=== PATIENT | female | born 1980 | race Caucasian/White ===

== ENCOUNTER 2020-01-05 11:38 | Outpatient (CLI) | payer OTHER, SELFPAY ==
--- NOTE | ~2020-01-05 | XR_ITS ---
EXAMINATION: XR hysterosalpingogram DATE: 01/05/2020 12:31 INDICATION: Infertility. TECHNIQUE: Fluoroscopy was performed by the radiologist during contrast infusion into the endometrial cavity of the uterus by the primary physician. Fluoroscopy exposure time was 0.2 minutes. The total number of images was 8. FINDINGS: The intrauterine cavity is normal in morphology. The fallopian tubes are normal in morpholo gy. There is normal free intraperitoneal spillage of contrast on either side. IMPRESSION: 1. Normal hysterosalpingogram. Reviewed, dictated and finalized at location A. IAGE SETTER
== END 2020-01-05 11:39 | disposition home or self-care (01) ==
LOC: ANHIMG 11:44
PROVIDERS: PCP Obstetrics & Gynecology; Visit Provider Obstetrics & Gynecology
DX: N97.9 Female infertility, unspecified (principal)
CPT/HCPCS: 58340; 74740; Q9966

== ENCOUNTER 2022-01-10 16:11 | Outpatient (CLI) | payer OTHER, SELFPAY ==
--- NOTE | ~2022-01-10 | MM_ITS ---
EXAMINATION: MM screening yareli BI w lily HISTORY: Screening TECHNIQUE: Craniocaudal and mediolateral oblique 3-D tomosynthesis images were obtained and synthetic 2-D images were generated. CAD analysis was submitted and interpreted. COMPARISON: No prior mammogram is available for comparison at this institution. BREAST PARENCHYMAL COMPOSITION: There are scattered areas of fibroglandular density. FINDINGS: There are asymmetries in the upper outer quadrant of the right breast. There are no suspici ous masses, calcifications or architectural distortion in the left breast to suggest malignancy. IMPRESSION: 1. Right breast asymmetries, upper outer quadrant. 2. Additional mammographic views and possible breast ultrasound are recommended. BI-RADS Category 0: Incomplete: Needs additional imaging evaluation. Reviewed, dictated and finalized at location A. MAKER IMPRESSION: 1. Right breast asymmetries, upper outer quadrant. 2. Additional mammographic views and possible breast ultrasound are recommended . BI-RADS Category 0: Incomplete: Needs additional imaging evaluation.
== END 2022-01-10 16:12 | disposition home or self-care (01) ==
LOC: ANHIMG 16:14
PROVIDERS: PCP Obstetrics & Gynecology; Visit Provider Obstetrics & Gynecology
DX: Z12.31 Encounter for screening mammogram for malignant neoplasm of breast (principal); R92.8 Other abnormal and inconclusive findings on diagnostic imaging of breast
CPT/HCPCS: 77063; 77067

== ENCOUNTER 2022-01-31 11:47 | Outpatient (CLI) | payer OTHER, SELFPAY ==
--- NOTE | ~2022-01-31 | MMUS_ITS ---
EXAMINATION: MM diagnostic yareli RT w lily, US breast RT limited HISTORY: Follow-up right breast asymmetry TECHNIQUE: Additional 3-D tomosynthesis images of the right breast were performed and synthetic 2-D i mages were generated. CAD analysis was submitted and interpreted. High resolution Limited right breas t ultrasound was performed. COMPARISON: 01/10/2022 BREAST PARENCHYMAL COMPOSITION: The breasts are heterogenously dense, which may obscure small masses. FINDINGS: MAMMOGRAPHIC FINDINGS: There are no suspicious masses, calcifications or architectural distortion in the right breast to sug gest malignancy. The area of asymmetry is less dense with spot compression views. ULTRASOUND: Limited right breast ultrasound: At 9:00, 11 cm from the nipple there is a 5 mm intramammary lymph no de. No suspicious masses to suggest malignancy. IMPRESSION: 1. No evidence for malignancy in the right breast. 2. Routine yearly screening mammogram and regular clinical breast examination are recommended. BI-RADS Category 2: Benign finding(s). Reviewed, dictated and finalized at location A. AL SORTING OFFICER IMPRESSION: 1. No evidence for malignancy in the right breast. 2. Routine yearly screening mammogram and regular clinical breast examination a re recommended. BI-RADS Category 2: Benign finding(s).
== END 2022-01-31 11:48 | disposition home or self-care (01) ==
PROVIDERS: PCP Obstetrics & Gynecology; Visit Provider Obstetrics & Gynecology
DX: R92.8 Other abnormal and inconclusive findings on diagnostic imaging of breast (principal)
CPT/HCPCS: 76642; 77061; 77065; G0279

== ENCOUNTER 2024-03-20 11:06 | Outpatient (CLI) | payer OTHER, SELFPAY ==
[2024-03-20 11:52] LABS: Hemoglobin 14.1 g/dL (12.0-15.0)
== END 2024-03-20 11:07 | disposition home or self-care (01) ==
PROVIDERS: PCP Family Medicine; Visit Provider Obstetrics & Gynecology
DX: R10.2 Pelvic and perineal pain (principal); Z01.818 Encounter for other preprocedural examination
CPT/HCPCS: 36415; 85014; 85018

== ENCOUNTER 2024-03-27 02:49 | Day surgery (SDC) | payer OTHER, SELFPAY ==
--- NOTE | 2024-03-18 10:26 | PC.NURSE ---
Report to the Outpatient Waiting Room, entrance under the green pavilion located off [facility], at time 6:00 am on date [id number] . Planned Procedure Time: __730_am . Time changes happen often and if your time is changed the preop area will call you the afternoon before. - You and your visitor will be asked to self-screen and do not enter if you have any COVID symptoms. - A mask is optional within the hospital at this time. Patients may have clear liquids (water, carbonated beverages, clear teas, apple juice) until 3 hours prior to surgery with a maximum of 20 ounces. (last fluid at 4:30 am) - No food from midnight until time of surgery - Take the following medications with a SIP of water the morning of surgery: Nifedipine only___ ___ DO NOT STOP ANY OF YOUR OTHER PRESCRIPTION MEDICATIONS PRIOR TO SURGERY ?EXCEPT THE FOLLOWING Medications to discontinue per physician Vitamins/Supplements x3 days prior, last dose taken on 03-14-2024 May take lisinopril THE MORNING BEFORE- DO NOT TAKE THE MORNING OF._ Please no make-up, nail occitan, hairspray, perfume, deodorant, or body powder the day of surgery. No jewelry (including any body piercings) or valuables the day of surgery, leave them at home. Please take a shower or bath the night before, or the morning of, surgery with an antibacterial soap. Wear comfortable, loose fitting clothing. - Jewelry must be removed prior to entering the operating room. Rings and piercings that are not removed may be cut off. - The hospital will not accept responsibility for valuables. - Please leave all valuables, including medications, at home the day of surgery. If you are going home after surgery, a licensed truck driver teamster must drive you home. - NO public transportation without another adult if you receive anesthesia. - We recommend that an adult stay with you for 24 hours following discharge. - We also recommend that you do not drive, make important decision, drink alcoholic beverages, or take any drugs that were not prescribed by your health care provider for at least 24 hours after your discharge time. Follow any additional instructions given to you from your surgeon. If you or anyone in your household have experienced Covid symptoms in the past week, please notify your surgeon or the nurse liaison at the phone number below for possible testing. Telephone instructions given to Amber (patient)____and asked if any additional questions and then verbalized understanding. Patient advised to call surgeon office or pre surgery nurse liaison [phone] if any additional questions.
[2024-03-18 10:56] VITALS: BMI 37.0
--- NOTE | 2024-03-24 07:15 | P.HP_ITS ---
H&P: HPI History of Present Illness Date/Time: 03/24/24 07:15 Chief Complaint: Irregular bleeding pelvic pain Narrative: 43-year-old 1 para 1 who is admitted for hysteroscopy and dilatation curettage secondary to bleeding. Ultrasound shows what looks to be a submucosal fibroid. Risks and benefits of this procedure reviewed including but not exclusive of , aspiration pneumonia, bleeding, transfusion, perforation injury to bowel, bladder, ureters, or other internal organs with need for open laparotomy. She received the ACOG handout entitled hysteroscopy as well as dilatation curettage respectively. She had all questions answered. She asked to proceed [facility] Family History Family History Mother Cancer Hypertension Father Alcoholism Grandparent Cancer Hypertension Social History Social History Smoking status: Never smoker Second hand tobacco smoke exposure: Yes (occassional) Alcohol intake: current Drinks per week: 0 Alcohol use details: x1 month occassionally Substance use: never Substance use type: does not use Living arrangements: with family Meds Home Medications and Allergies Home Medications Medication Instructions Recorded Confirmed Type cholecalciferol (vitamin D3) 25 25 mcg PO BID 05/24/23 03/18/24 History mcg (1,000 unit) tablet cetirizine 10 mg tablet (Zyrtec) 10 mg PO HS PRN Allergic Symptoms 09/19/23 03/18/24 History prednisone 20 mg tablet 40 mg PO DAILY #10 tabs 09/19/23 03/18/24 Rx nifedipine 90 mg tablet,extended 90 mg PO DAILY #90 tabs 12/24/23 03/18/24 Rx release lisinopril 10 mg tablet 10 mg PO DAILY #90 tabs 01/28/24 03/18/24 Rx Adult One Daily Multivitamin 1 tablet BYMOUTH DAILY 03/18/24 03/18/24 History vitamins A,C,Q-pzgg-beebol 4,296 1 cap PO QAM AND QPM 03/18/24 03/18/24 History mcg-226 mg-90 mg capsule (PreserVision AREDS) Allergies Allergy/AdvReac Type Severity Reaction Status Date / Time pregabalin Allergy Mild Hives Verified 03/18/24 09:53 adhesive tape Allergy Unknown Verified 03/18/24 09:53 Exam Const: General: cooperative, healthy appearing and comfortable Nutritional Appearance: overweight Orientation/consciousness: oriented to person, oriented to place and oriented to time HENMT: Head: normal to inspection Resp: Effort & Inspection: normal respiratory effort Cardio: Rate: regular rate Rhythm: regular rhythm Heart sounds: S1 normal heart sound present and S2 normal heart sound present GI: Inspection: normal to inspection : External Female Exam: normal external appearance Speculum Exam - Vagina: normal appearance of the vagina Speculum Exam - Cervix: normal appearance of the cervix Bimanual exam- vagina & uterus: enlarged Bimanual Exam- Adnexa, other: normal adnexae Assessment and Plan Assessment and plan (1) Pelvic pain: Code(s): R10.2 - Pelvic and perineal pain Status: Acute (2) Excessive bleeding: Code(s): R58 - Hemorrhage, not elsewhere classified Status: Acute Plan Proceed with hysteroscopy/dilatation curettage
--- NOTE | 2024-03-26 13:31 | P.PNAN_ITS ---
Anes - Initial Pre Proc Eval Procedure: Operation Date: 03/27/24 10:30 Proposed Procedures p Hysteroscopy Dilation and Curettage - Ravi Hyatt MD Date/Time: 03/26/24 13:31 Surgeon: Ravi Hyatt MD Pre Op Diagnosis: Pain Patient Data Age: 43 Gender: F Height: 1.68 m Weight: 104.3 kg Allergies Allergy/AdvReac Type Severity Reaction Status Date / Time pregabalin Allergy Mild Hives Verified 03/18/24 09:53 adhesive tape Allergy Unknown Verified 03/18/24 09:53 Home Medications Medication Instructions Recorded Confirmed Type cholecalciferol (vitamin D3) 25 25 mcg PO BID 05/24/23 03/18/24 History mcg (1,000 unit) tablet cetirizine 10 mg tablet (Zyrtec) 10 mg PO HS PRN Allergic Symptoms 09/19/23 03/18/24 History prednisone 20 mg tablet 40 mg PO DAILY #10 tabs 09/19/23 03/18/24 Rx nifedipine 90 mg tablet,extended 90 mg PO DAILY #90 tabs 12/24/23 03/18/24 Rx release lisinopril 10 mg tablet 10 mg PO DAILY #90 tabs 01/28/24 03/18/24 Rx Adult One Daily Multivitamin 1 tablet BYMOUTH DAILY 03/18/24 03/18/24 History vitamins A,C,P-ctmp-oewjij 4,296 1 cap PO QAM AND QPM 03/18/24 03/18/24 History mcg-226 mg-90 mg capsule (PreserVision AREDS) hydrocodone 5 mg-acetaminophen 325 1 tablet PO Q4H PRN pain #20 tabs 03/27/24 Rx mg tablet Patient hx anesthesia problems: none Family hx anesthesia problems: none Results Review: All pre-operative results and documents have been reviewed as part of the pre- operative evaluation. [facility] Past Medical History Medical History (Updated 03/26/24 @ 13:31 by Jayesh Nj DO) Fibroid PONV (postoperative nausea and vomiting) Family History Family History Mother Cancer Hypertension Father Alcoholism Grandparent Cancer Hypertension Social History Social History Smoking status: Never smoker Second hand tobacco smoke exposure: Yes (occassional) Alcohol intake: current Drinks per week: 0 Alcohol use details: x1 month occassionally Substance use: never Substance use type: does not use Living arrangements: with family Emely - Jatinder Final PreProcedure Day of Procedure 03/26/24 13:31 Patient weight: obese Heart: regular rate and rhythm Lungs: clear to auscultation Airway: Mallampati scale class II Neurological: alert and oriented Last oral intake: >/= 8 hours ASA classification: II Emergent: no Anesthetic plan: proceed Anesthesia type and monitoring: general GIVS and standard monitoring Results Review: All pre-operative results and documents have been reviewed as part of the pre- operative evaluation. Informed Consent: The patient's anesthetic plan and its attendant risks and benefits were discussed with the patient/family/POA. Questions were solicited and answers provided to the satisfaction of the patient/family/POA.
[2024-03-27] VITALS (8 sets, daily range): BP systolic 79–141; BP diastolic 39–88; PULSE 45–97; RESP 16; TEMP 37.2; O2SAT 97–99
--- NOTE | 2024-03-27 06:36 | WPDHPUPDATE1 ---
History and Physical Update Update Date/Time: 03/27/24 06:36 History and Physical has been reviewed, including an updated exam of the patient. There are NO changes in the patient's condition. Risks, benefits, and alternatives have been discussed and questions answered. Patient agrees to proceed with procedure.
[2024-03-27] MEDS: LACTATED RINGERS 1,000 ML 30 ML IV CONT ×2 (09:00→11:50)
[2024-03-27] MEDS: ACETAMINOPHEN 500 MG TABLET 1000 MG PO (09:00)
[2024-03-27] MEDS: fentaNYL CITRATE INJ (*CRX) 100 MCG/2 ML VIAL 50 MCG IV PUSH (10:00)
[2024-03-27] MEDS: LIDOCAINE HCL 1% LOCAL INJ 10 ML VIAL INFILTRATE (10:38)
--- NOTE | 2024-03-27 11:03 | W.PM.PROC2 ---
Procedure Note - Detailed Date of Procedure 03/27/24 Pre-op Diagnosis Excessive bleeding Post-op Diagnosis Other ( excessive bleeding submucosal fibroid) Procedure Performed hysteroscopy/ dilatation curettage/ myomectomy Surgeon Ravi Hyatt MD Anesthesia MAC and Local Indications this is 43-year-old female with excessive heavy bleeding and what appeared to be submucosal fibroid ultrasound imaging Findings submucosal fibroid was seen. Thick irregular endometrial tissue was also seen Description of Procedure patient was prepped draped in the normal sterile fashion placed in dorsal lithotomy position. Under excellent IV sedation weighted speculum placed posterior fornix vagina. Anterior lip of cervix grasped with tenaculum. 2.5cc 1% xylocaine anesthesia placed at 2, 4, 8, 10:00 a.m. of the cervix. Uterus sounded to 8cm. Serial dilatation with fragmented dilators performed followed by passage of the of the to hysteroscope. Submucosal fibroid was noted and the reticulating device was inserted this was then none down to the surface of the endometrial lining. The endometrium was then scraped over the entire 360? in the instruments withdrawn. Blood loss estimated 5cc. All sponge, needle, instrument counts were correct. There were no immediate complications Estimated Blood Loss 5 Drains No Packing No Pathology Yes Complications No immediate complications Condition Stable Disposition PACU
--- NOTE | 2024-03-27 12:13 | SUR.PHASEII ---
1145: patient had nose bleed. bp and hr decreased. patient laid back into recliner, ivf's opened. Sundar BABIN near bedside. no new orders. patient begins to improve.
== END 2024-03-27 13:10 | disposition home or self-care (01) ==
PROVIDERS: PCP Family Medicine; Visit Provider Obstetrics & Gynecology
PROC: 0U5B8ZZ Destruction of Endometrium, Via Natural or Artificial Opening Endoscopic (ICD-10-PCS; CPT 58563; principal; 2024-03-27 10:30)
DX: D25.0 Submucous leiomyoma of uterus (principal); E66.9 Obesity, unspecified; Z68.36 Body mass index [BMI] 36.0-36.9, adult
CPT/HCPCS: 58561; 36415; 85014; 85018; 88305; A9270; J2250; J2405; J2704; J3010; J7120

== ENCOUNTER 2024-05-20 13:58 | Outpatient (CLI) | payer OTHER, SELFPAY ==
--- NOTE | ~2024-05-20 | XR_ITS ---
EXAMINATION: XR knee RT 3V DATE: 05/20/2024 14:32 INDICATION: Right knee pain. TECHNIQUE: 3 views of right knee including standing views were obtained. COMPARISON: None. FINDINGS: Bone alignment is normal. No fracture. Joint spaces are normal. No knee joint effusion. IMPRESSION: 1. Normal right knee. Reviewed, dictated and finalized at location A. IMPRESSION: 1. Normal right knee.
== END 2024-05-20 13:59 | disposition home or self-care (01) ==
LOC: ANHIMG 14:00
PROVIDERS: PCP Family Medicine; Visit Provider Family Medicine
DX: M25.561 Pain in right knee (principal)
CPT/HCPCS: 73562

== ENCOUNTER 2024-06-16 10:13 | Outpatient (CLI) | payer OTHER, SELFPAY ==
--- NOTE | ~2024-06-16 | MR_ITS ---
EXAMINATION: MR knee RT wo con DATE: 06/16/2024 11:14 INDICATION: Pain in right knee, unspecified TECHNIQUE: Magnetic resonance imaging (MRI) of the right 05/20/2024 knee was performed without intrave nous contrast. Sequences included axial PD-weighted FS FSE, coronal PD-weighted FSE and PD-weighted F S FSE, sagittal PD-weighted FSE, and sagittal T2-weighted FS FSE. COMPARISON: None. FINDINGS: Medial compartment: Mild diffuse cartilage thinning. Intact meniscus. Lateral compartment: Mild diffuse cartilage thinning. Intact meniscus. Patellofemoral compartment: Cartilage and retinacula intact. Ligaments and tendons: The ACL, PCL, MCL, and LCL are intact. Remaining flexor and extensor tendons are intact. Fluid: No significant fluid collection. Osseous/other: No suspicious focal or diffuse marrow signal. IMPRESSION: Mild bicompartmental knee osteoarthritis. Reviewed, dictated and finalized at location K.
== END 2024-06-16 10:14 ==
PROVIDERS: PCP Family Medicine; Visit Provider Family Medicine
DX: M17.0 Bilateral primary osteoarthritis of knee (principal)
CPT/HCPCS: 73721

== ENCOUNTER 2024-06-29 09:44 | Outpatient (CLI) | payer OTHER, SELFPAY ==
--- NOTE | ~2024-06-29 | MM_ITS ---
EXAMINATION: MM screening yareli BI w lily HISTORY: Screening TECHNIQUE: Craniocaudal and mediolateral oblique 3-D tomosynthesis images were obtained and synthetic 2-D images were generated. CAD analysis was submitted and interpreted. COMPARISON: Comparison to multiple prior studies sequentially, with oldest reviewed study dated 01/10. BREAST PARENCHYMAL COMPOSITION: Not dense: There are scattered areas of fibroglandular density. FINDINGS: There is no evidence of suspicious mass, calcification, or architectural distortion to sugg est malignancy in either breast. There has been no suspicious interval change. IMPRESSION: 1. No mammographic evidence of malignancy. 2. Recommend routine screening mammography in one year. BI-RADS Category 1: Negative Reviewed, dictated and finalized at location B.
== END 2024-06-29 09:45 | disposition home or self-care (01) ==
PROVIDERS: PCP Family Medicine; Visit Provider Obstetrics & Gynecology
DX: Z12.31 Encounter for screening mammogram for malignant neoplasm of breast (principal)
CPT/HCPCS: 77063; 77067

== ENCOUNTER 2024-11-26 08:32 | Outpatient (CLI) | payer OTHER, SELFPAY ==
--- NOTE | 2024-11-26 08:30 | ECG_ITS ---
Test Date: 2024-11-26 08:55:23 Measurements Intervals [place] Rate: 90 P: 38 UT: 159 QRS: 27 QRSD: 97 T: 45 QT: 343 QTc: 420 Interpretive Statements SINUS RHYTHM WARNING: DATA QUALITY MAY AFFECT INTERPRETATION No previous ECG available for comparison Electronically Signed On 11-30-2024 11:19:58 SNOW GROOMER by Christos Martínez M.D.
[2024-11-26 10:14] LABS: Basophils Absolute Auto 0.1 K/mm3 (0.0-0.1); Basophils Percent Auto 0.6 % (0.2-1.2); Eosinophils Absolute Auto 0.3 K/mm3 (0-0.3); Eosinophils Percent Auto 2.4 % (0-4.4); Hematocrit 41.1 % (37.0-47.0); Hemoglobin 13.7 g/dL (12.0-15.0); Immature Granulocyte Absolute 0.07 K/mm3 (0.00-0.031); Immature Granulocyte Percent A 0.6 % (0-0.5); Lymphocytes Absolute Auto 3.59 K/mm3 (0.9-3.2); Lymphocytes Percent Auto 31.3 % (18.3-44.2); Mean Corpuscular HGB Conc 33.3 g/dl (32-36); Mean Corpuscular Hemoglobin 27.3 pg (26-34); Mean Corpuscular Volume 81.9 fl (80-100); Mean Platelet Volume 10.6 fl (7.4-10.4); Monocytes Absolute Auto 0.9 K/mm3 (0.1-0.6); Monocytes Percent Auto 7.5 % (2.6-8.5); Neutrophils Absolute Auto 6.6 K/mm3 (1.3-6.7); Neutrophils Percent Auto 57.6 % (45.5-73.1); Platelet Count Result 297 k/mm3 (150-375); Red Blood Count 5.02 M/mm3 (4.2-5.4); Red Cell Distribution Width 13.2 % (11.5-14.5); White Blood Count 11.5 K/mm3 (4.5-10.0)
== END 2024-11-26 08:33 | disposition home or self-care (01) ==
LOC: ANHSURGERY 08:35
PROVIDERS: PCP Family Medicine; Visit Provider Obstetrics & Gynecology
DX: Z01.818 Encounter for other preprocedural examination (principal); R58 Hemorrhage, not elsewhere classified; I10 Essential (primary) hypertension
CPT/HCPCS: 36415; 85025; 86850; 86900; 86901; 93005

== ENCOUNTER 2024-11-27 00:19 | Day surgery (SDC) | payer OTHER, SELFPAY ==
[2024-11-16 11:09] VITALS: BMI 37.1
--- NOTE | 2024-11-16 11:17 | PC.NURSE ---
Addendum entered by Letitia Hall RN 11/26/24 09:43: Pt here for pre-op testing and inquiring about surgical time change. Notified of new arrival time of 0730 for surgery at 0930. Maximum 20oz of clear liquids until 0630. Pt verbalizes understanding. Original Note: Report to the Outpatient Waiting Room, entrance under the green pavilion located off [facility], at time _1130_ on date _[id number]_. Planned Procedure Time: _130pm_.? Time changes happen often and if your time is changed the preop area will call you the afternoon before. - You and your visitor will be asked to self-screen and do not enter if you have any COVID symptoms. Please call surgeon if you need to reschedule. - A mask is optional within the hospital at this time. Patients may have clear liquids (water, carbonated beverages, clear teas, apple juice) until 3 hours prior to surgery with a maximum of 20 ounces. - No food from midnight until time of surgery and no smoking. This includes no chewing gum, candy or mints. Take only the following medications with a SIP of water on the morning of surgery: ____Nifedipine DO NOT STOP ANY OF YOUR OTHER PRESCRIPTION MEDICATIONS PRIOR TO SURGERY EXCEPT THE FOLLOWING Medications to discontinue per physician ___All vitamins Date to take last mjnf____[id number]____ Please no make-up, nail german, hairspray, perfume, deodorant, or body powder the day of surgery.? No jewelry (including any body piercings) or valuables the day of surgery, leave them at home.? Please take a shower or bath the night before, or the morning of, surgery with an antibacterial soap.? Wear comfortable, loose fitting clothing.? - Jewelry must be removed prior to entering the operating room.? Rings and piercings that are not removed may be cut off. - The hospital will not accept responsibility for valuables.? - Please leave all valuables, including medications, at home the day of surgery. If you are going home after surgery, a licensed pizza driver must drive you home.? - NO public transportation without another adult if you receive anesthesia. - We recommend that an adult stay with you for 24 hours following discharge. - We also recommend that you do not drive, make important decision, drink alcoholic beverages, or take any drugs that were not prescribed by your health care provider for at least 24 hours after your discharge time. Follow any additional instructions given to you from your surgeon. Telephone instructions given to __Amber__and asked if any additional questions and then verbalized understanding. Patient advised to call surgeon office or pre surgery nurse liaison [phone] if any additional questions.
--- NOTE | 2024-11-26 11:44 | P.HP_ITS ---
H&P: HPI History of Present Illness Date/Time: 11/26/24 11:44 Chief Complaint: Heavy bleeding and uterine fibroids Narrative: 44-year-old female has undergone hysteroscopic myomectomy but continues to bleed is admitted for robotic hysterectomy and bilateral salpingectomy. She understands this to be a permanent fix and the understands she is not able to have children following this. The ovaries will remain. Risks and benefits of this procedure reviewed including but not exclusive of , aspiration pneumonia bleeding, transfusion, perforation injury to bowel, bladder, ureters, or other internal organs with need for open laparotomy. She received the ACOG handout entitled hysterectomy as well as the [facility] handout. All questions were answered to her satisfaction. She asked to proceed Review of Systems Review of Systems: All systems reviewed & are unremarkable except as noted in HPI and below PMFSH Past Medical History Medical History PONV (postoperative nausea and vomiting) Fibroid Family History Family History Mother Cancer Hypertension Father Alcoholism Grandparent Cancer Hypertension Social History Social History Smoking status: Never smoker Second hand tobacco smoke exposure: Yes (occassional) Alcohol intake: current Drinks per week: 0 Alcohol use details: x1 month occassionally Substance use: never Substance use type: does not use Living arrangements: with family Spiritual care concerns: No Meds Home Medications and Allergies Home Medications ?Medication ?Instructions ?Recorded ?Confirmed ?Type cetirizine 10 mg tablet (Zyrtec) 10 mg PO HS PRN Allergic Symptoms 09/19/23 11/16/24 History Adult One Daily Multivitamin 1 tablet BYMOUTH DAILY 03/18/24 11/16/24 History vitamins A,C,L-oaab-dhxvsf 4,296 1 cap PO QAM AND QPM 03/18/24 11/16/24 History mcg-226 mg-90 mg capsule (PreserVision AREDS) cholecalciferol (vitamin D3) 25 25 mcg PO BID 06/11/24 11/16/24 History mcg (1,000 unit) tablet nifedipine 90 mg tablet,extended See Rx Instructions .Route 06/22/24 11/16/24 Rx release 24 hr .COMPLEX #90 tabs lisinopril 10 mg tablet See Rx Instructions .Route 07/28/24 11/16/24 Rx .COMPLEX #90 tabs Allergies Allergy/AdvReac Type Severity Reaction Status Date / Time pregabalin Allergy Mild Hives Verified 11/16/24 11:07 adhesive tape Allergy Unknown Verified 11/16/24 11:07 Exam Const: General: cooperative, healthy appearing and comfortable Nutritional Appearance: overweight Orientation/consciousness: oriented to person, calli ented to place and oriented to time HENMT: Head: normal to inspection Resp: Effort & Inspection: normal respiratory effort Cardio: Rate: regular rate Rhythm: regular rhythm Heart sounds: S1 normal heart sound present and S2 normal heart sound present GI: Inspection: normal to inspection : Speculum Exam - Vagina: normal appearance of the vagina Speculum Exam - Cervix: normal appearance of the cervix Bimanual exam- vagina & uterus: enlarged and nodular Bimanual Exam- Adnexa, other: normal adnexae Assessment and Plan Assessment and plan (1) Excessive bleeding: Code(s): R58 - Hemorrhage, not elsewhere classified Status: Acute (2) Obesity: Code(s): E66.9 - Obesity, unspecified Status: Acute (3) Enlarged uterus: Code(s): N85.2 - Hypertrophy of uterus Status: Acute Plan Proceed with robotic total vaginal hysterectomy and salpingectomy
--- NOTE | 2024-11-26 14:37 | WPDANESEPPF ---
Anes - Initial Pre Proc Eval Procedure: Operation Date: 11/27/24 09:30 Proposed Procedures p Robotic Assisted Total Vaginal Hysterectomy with Bilateral Salpingectomy - Ravi Hyatt MD Date/Time: 11/26/24 14:37 Surgeon: Ravi Hyatt MD Pre Op Diagnosis: excessive irregular bleeding, pelvic pain, fibroid Patient Data Age: 44 Gender: F Height: 1.68 m Weight: 104.5 kg Allergies Allergy/AdvReac Type Severity Reaction Status Date / Time pregabalin Allergy Mild Hives Verified 11/27/24 07:59 adhesive tape Allergy Unknown Verified 11/27/24 07:59 Home Medications ?Medication ?Instructions ?Recorded ?Confirmed ?Type cetirizine 10 mg tablet (Zyrtec) 10 mg PO HS PRN Allergic Symptoms 09/19/23 11/16/24 History Adult One Daily Multivitamin 1 tablet BYMOUTH DAILY 03/18/24 11/27/24 History vitamins A,C,G-nzzs-mfwulh 4,296 1 cap PO QAM AND QPM 03/18/24 11/16/24 History mcg-226 mg-90 mg capsule (PreserVision AREDS) cholecalciferol (vitamin D3) 25 25 mcg PO BID 06/11/24 11/27/24 History mcg (1,000 unit) tablet nifedipine 90 mg tablet,extended See Rx Instructions .Route 06/22/24 11/16/24 Rx release 24 hr .COMPLEX #90 tabs lisinopril 10 mg tablet See Rx Instructions .Route 07/28/24 11/16/24 Rx .COMPLEX #90 tabs hydrocodone 5 mg-acetaminophen 325 1 tablet PO Q4H PRN pain #20 tabs 11/27/24 Rx mg tablet Patient hx anesthesia problems: post op nausea/vomiting Family hx anesthesia problems: none Results Review: All pre-operative results and documents have been reviewed as part of the pre-operative evaluation. [facility] Past Medical History Medical History (Updated 11/26/24 @ 14:38 by Jayesh Nj DO) Hypertension PONV (postoperative nausea and vomiting) Fibroid Family History Family History Mother Cancer Hypertension Father Alcoholism Grandparent Cancer Hypertension Social History Social History (Reviewed 06/11/24 @ 14:21 by KRISHNA Martinez Smoking status: Never smoker Second hand tobacco smoke exposure: Yes (occassional) Alcohol intake: current Drinks per week: 0 Alcohol use details: x1 month occassionally Substance use: never Substance use type: does not use Living arrangements: with family Spiritual care concerns: No Anes - Eval Final PreProcedure Day of Procedure 11/26/24 14:37 Patient weight: obese Heart: regular rate and rhythm Lungs: clear to auscultation Airway: Mallampati scale class II Neurological: alert and oriented Last oral intake: >/= 8 hours ASA classification: III Emergent: no Anesthetic plan: proceed Anesthesia type and monitoring: general ETT and standard monitoring Results Review: All pre-operative results and documents have been reviewed as part of the pre-operative evaluation. Informed Consent: The patient's anesthetic plan and its attendant risks and benefits were discussed with the patient/family/POA. Questions were solicited and answers provided to the satisfaction of the patient/family/POA.
[2024-11-27] VITALS (12 sets, daily range): BP systolic 105–147; BP diastolic 57–88; PULSE 71–105; RESP 12–20; TEMP 36.5–37.2; O2SAT 93–99
--- NOTE | 2024-11-27 06:49 | WPDHPUPDATE1 ---
History and Physical Update Update Date/Time: 11/27/24 06:49 History and Physical has been reviewed, including an updated exam of the patient. There are NO changes in the patient's condition. Risks, benefits, and alternatives have been discussed and questions answered. Patient agrees to proceed with procedure.
[2024-11-27] MEDS: ACETAMINOPHEN 500 MG TABLET 1000 MG PO ×3 (08:05→23:40)
[2024-11-27] MEDS: LACTATED RINGERS 1,000 ML 30 ML IV CONT ×2 (08:10→10:33)
[2024-11-27] MEDS: KETOROLAC 15 MG/ML VIAL (*BKC) IV PUSH (08:15)
[2024-11-27] MEDS: SCOPOLAMINE 1 MG PATCH 1 PATCH TRANSDERM (08:20)
[2024-11-27] MEDS: ceFAZolin 2 GM/D5W 50 ML 2 GM/50 ML BAG IVPB (08:54)
--- NOTE | 2024-11-27 10:19 | W.PM.PROC2 ---
Procedure Note - Detailed Date of Procedure 11/27/24 Pre-op Diagnosis excessive irregular bleeding, pelvic pain, fibroid Post-op Diagnosis Same Procedure Performed Robotic total vaginal hysterectomy and bilateral salpingectomy with extensive lysis of adhesions Surgeon Ravi Hyatt MD Anesthesia General Indications 44-year-old female with bleeding pain and enlarged uterus Findings Enlarged uterus. Ovaries with hemorrhagic cysts bilaterally which were caked into the cul-de-sac. Description of Procedure Patient is prepped draped in normal sterile fashion placed dorsal position. Under excellent general trach anesthesia weighted speculum placed posterior fornix vagina. Anterior lip of the cervix grasped with single-tooth tenaculum. Uterus sounded to 11cm. Serial dilatation fragmented dilators performed followed by passes the 10. JOSEMANUEL and the 3. Cold cup. Next the 16 Scottish catheter was placed in the bladder and drained clear urine. The weighted speculum the single-tooth removed. The gloves were changed. A supraumbilical incision made. The Veress needle passed in the abdomen. Abdomen filled with CO2 gas [id number]. The 8mm trocars advanced under direct visualization assuring no injury. Right left lateral quadrant incisions made 8mm trocars advanced under direct visualization assuring injury. Right upper quadrant incision made the 8mm trocar advanced under direct visualization assuring no injury. The robot was docked. Attention was turned to the certified rehabilitation counselor. The ovaries were caked into the cul-de-sac as were the tubes. The left round ligament grasped, burned, cut. Anterior bladder flap was formed by sharply dissecting the peritoneum and reflecting the bladder caudally away from the cervix uterus the opposite round ligament which was clamped, burned, cut. Next the left fallopian tube was noted be markedly adherent into the cul-de-sac attached to this bilateral ovarian complexes which were stuck in cul-de-sac. It was sharply dissected away from its ovarian connection and passed through the right upper quadrant incision. This was performed as well with the right fallopian tube. The next difficulty was relieving this adhesions and ovarian complexes which were stuck in the cul-de-sac. Using sharp dissection with the attending there were sharply dissected away until they could be freed to the infundibulopelvic structures. Hemorrhagic cyst was present and these were drained bilaterally. The ovaries that appeared fairly normal a type point. Next the cardinal broad ligaments on the left were skeletonized clamping burning cutting and bringing this down the lateral edge to the uterine vessels these were large and tortuous and there were clamped, burned, cut. In similar fashion the cardinal broad ligaments on the right were serially skeletonized clamping burning cutting until the large tortuous uterine vessels could be seen on the right these were individually clamped, burned, cut. Blanching of the uterus was noted a colpotomy incision made. The cervix uterus and remaining portions of the tube were passed through the vaginal canal. The vagina was then closed with continuous running 0V lock from lateral edge to lateral edge back to midline. Vigorous irrigation undertaken to clear and hemostasis was assured. Austin term was placed over the raw surface areas. All pedicles appeared dry the instruments withdrawn. The robot was undocked and the gas removed from the abdomen. The trocars removed the incisions closed with 4 Monocryl glue patient was awakened went recovery in satisfactory condition. All sponge, needle, instrument counts were correct. There were no immediate complications Estimated Blood Loss 500 Drains No Packing No Pathology Yes Complications No immediate complications Condition Stable Disposition PACU
--- NOTE | 2024-11-27 10:24 | P.DS_ITS ---
DS: Admitting Diagnosis Discharge Date 11/28/24 <Balbir Meredith MD - Last Filed: 11/28/24 09:19> Admitting Diagnosis Pelvic pain enlarged uterus excessive heavy bleeding <Ravi Hyatt MD - Last Filed: 11/27/24 10:27> DS: Discharge Diagnosis Discharge Diagnosis (1) Pelvic pain: Code(s): R10.2 - Pelvic and perineal pain <Ravi Hyatt MD - Last Filed: 11/27/24 10:27> Status: Acute <Ravi Hyatt MD - Last Filed: 11/27/24 10:27> (2) Excessive bleeding: Code(s): R58 - Hemorrhage, not elsewhere classified <Ravi Hyatt MD - Last Filed: 11/27/24 10:27> Status: Acute <Ravi Hyatt MD - Last Filed: 11/27/24 10:27> (3) Enlarged uterus: Code(s): N85.2 - Hypertrophy of uterus <Ravi Hyatt MD - Last Filed: 11/27/24 10:27> Status: Acute <Ravi Hyatt MD - Last Filed: 11/27/24 10:27> DS: Summary Hospital Course Reason for hospitalization: Patient was admitted for robotic hysterectomy bilateral salpingectomy on 11/27/2024. She also had extensive lysis of adhesions. <Ravi Hyatt MD - Last Filed: 11/27/24 10:27> Hospital Course: Patient's hospital course unremarkable. She remained afebrile. She was up, voiding without difficulty, eating regular diet, ambulating, and generally without complaints <Ravi Hyatt MD - Last Filed: 11/27/24 10:27> Time Spent with Patient Time attestation: Total time spent providing and/or coordinating discharge services: <Ravi Hyatt MD - Last Filed: 11/27/24 10:27> Exam Const: General: cooperative, healthy appearing and comfortable <Ravi Hyatt MD - Last Filed: 11/27/24 10:27> Nutritional Appearance: average body habitus <Ravi Hyatt MD - Last Filed: 11/27/24 10:27> Orientation/consciousness: oriented to person, oriented to place and oriented to time <Ravi Hyatt MD - Last Filed: 11/27/24 10:27> HENMT: Head: normal to inspection <Ravi Hyatt MD - Last Filed: 11/27/24 10:27> Resp: Effort & Inspection: normal respiratory effort <Ravi Hyatt MD - Last Filed: 11/27/24 10:27> Cardio: Rate: regular rate <Ravi Hyatt MD - Last Filed: 11/27/24 10:27> Rhythm: regular rhythm <Ravi Hyatt MD - Last Filed: 11/27/24 10:27> Heart sounds: S1 normal heart sound present and S2 normal heart sound present <Ravi Hyatt MD - Last Filed: 11/27/24 10:27> GI: Inspection: normal to inspection and incision (Clean dry and intact) <Ravi Hyatt MD - Last Filed: 11/27/24 10:27> Discharge Plan Discharge Patient Disposition: Home, Self-Care <Ravi Hyatt MD - Last Filed: 11/27/24 10:27> Discharge Instructions: Remove the Scopolamine patch that was placed behind your ear in 72 hours or less. Wash your hands after touching. Nothing in the vagina for 6 weeks. Call or return if temperature above 100.4? F, increased abdominal pain, increased vaginal bleeding or any new problems. <Ravi Hyatt MD - Last Filed: 11/27/24 10:27> Patient Language: Citizen Of [place] <Ravi Hyatt MD - Last Filed: 11/27/24 10:27> Stand Alone Forms: General Discharge Instructions <Ravi Hyatt MD - Last Filed: 11/27/24 10:27> Follow-up/Referrals: Ravi Bolton MD [Physician] - 2 Weeks <Ravi Hyatt MD - Last Filed: 11/27/24 10:27> Discharge Medications: New hydrocodone-acetaminophen 5-325 mg tablet 1 tablet PO Q4H PRN (Reason: pain) Qty: 20 0RF Continued cetirizine [Zyrtec] 10 mg tablet 10 mg PO HS PRN (Reason: Allergic Symptoms) cholecalciferol (vitamin D3) 25 mcg (1,000 unit) tablet 25 mcg PO BID Patient Comments: Takes 2 in am and 3 at HS Rx Instructions: 2 in the morning and 2 in the evening Adult One Daily Multivitamin 1 tablet BYMOUTH DAILY Patient Comments: Says takes twice a day. PreserVision AREDS 4,296 mcg-226 mg-90 mg Capsule 1 cap PO QAM AND QPM nifedipine 90 mg tablet extended release 24hr See Rx Instructions .ROUTE .COMPLEX Qty: 90 3RF Dose Instruction: TAKE 1 TABLET DAILY Rx Instructions: TAKE 1 TABLET DAILY lisinopril 10 mg tablet See Rx Instructions .ROUTE .COMPLEX Qty: 90 3RF Dose Instruction: TAKE 1 TABLET DAILY Rx Instructions: TAKE 1 TABLET DAILY <Ravi Hyatt MD - Last Filed: 11/27/24 10:27>
--- NOTE | 2024-11-27 12:04 | PC.NURSE ---
This patient, Mirian Washburn, was received from PACU on 11/27/24 at 1204. Patient/family oriented to unit policies and routines
[2024-11-27] MEDS: KETOROLAC 30 MG/ML VIAL (*BKC) IV PUSH ×2 (12:28→23:40)
[2024-11-27] MEDS: DEXTROSE 5%/LACTATED RINGERS 1,000 ML 125 ML IV CONT (12:28)
[2024-11-27] MEDS: SIMETHICONE 80 MG TAB.CHEW PO ×2 (12:29→17:45)
[2024-11-27] MEDS: ONDANSETRON INJ 4 MG/2 ML VIAL IV PUSH (12:29)
[2024-11-27] MEDS: oxyCODONE HCL (*CRX) 5 MG TAB IR PO ×2 (13:27→17:44)
[2024-11-27] MEDS: DOCUSATE SODIUM 100 MG CAPSULE PO (17:45)
[2024-11-28] MEDS: ACETAMINOPHEN 500 MG TABLET 1000 MG PO ×2 (04:40→09:43)
[2024-11-28] MEDS: KETOROLAC 30 MG/ML VIAL (*BKC) IV PUSH (04:40)
[2024-11-28 05:01] VITALS: BP 143/81; PULSE 100; RESP 18; TEMP 36.9; O2SAT 94
[2024-11-28 05:29] LABS: Basophils Absolute Auto 0.1 K/mm3 (0.0-0.1); Basophils Percent Auto 0.3 % (0.2-1.2); Eosinophils Percent Auto 0.1 % (0-4.4); Hematocrit 33.6 % (37.0-47.0); Immature Granulocyte Absolute 0.12 K/mm3 (0.00-0.031); Immature Granulocyte Percent A 0.8 % (0-0.5); Lymphocytes Absolute Auto 3.24 K/mm3 (0.9-3.2); Mean Corpuscular HGB Conc 32.7 g/dl (32-36); Mean Corpuscular Hemoglobin 26.8 pg (26-34); Mean Corpuscular Volume 81.8 fl (80-100); Mean Platelet Volume 10.2 fl (7.4-10.4); Monocytes Absolute Auto 1.3 K/mm3 (0.1-0.6); Monocytes Percent Auto 8.1 % (2.6-8.5); Neutrophils Absolute Auto 10.8 K/mm3 (1.3-6.7); Neutrophils Percent Auto 69.7 % (45.5-73.1); Platelet Count Result 276 k/mm3 (150-375); Red Blood Count 4.11 M/mm3 (4.2-5.4); Red Cell Distribution Width 13.2 % (11.5-14.5); White Blood Count 15.4 K/mm3 (4.5-10.0)
[2024-11-28 07:52] VITALS: BP 131/88; PULSE 84; RESP 18; TEMP 36.8; O2SAT 95
--- NOTE | 2024-11-28 09:17 | P.PNOB_ITS ---
FAGOTING MACHINE OPERATOR - A/P Assessment and plan (1) Pelvic pain: Code(s): R10.2 - Pelvic and perineal pain Status: Acute Assessment and Plan: A: POD#1, doing well. P: Home to f/u 2 weeks. (2) Excessive bleeding: Code(s): R58 - Hemorrhage, not elsewhere classified Status: Acute (3) Enlarged uterus: Code(s): N85.2 - Hypertrophy of uterus Status: Acute Postoperative Procedures: Procedures Operation Date: 11/27/24 09:30 Actual Procedure Side Surgeon p Robotic Assisted Total Vaginal Hysterectomy with Bilateral Salpingectomy, Extensive Lysis of Adhesions Bilateral Ravi Hyatt MD Postoperative day: 1 Time Spent With Patient Time with patient: less than 15 minutes FAGOTING MACHINE OPERATOR- PN:Subj Post-Op Subjective Date/time seen: 11/28/24 09:17 Interval history: Pain OK. Tolerating diet. Voiding. Would like to go home. Exam 2 Narrative: AVSS I/O OK ABD soft, nontender. Incisions c/d/i. EXT nontender FAGOTING MACHINE OPERATOR - PN: Obj Data Vital Signs Vital Signs: Vital Signs - 24 hr 11/27/24 10:33 11/27/24 10:45 11/27/24 11:00 Temperature 37.2 C Pulse Rate 101 H 94 82 Respiratory Rate 12 20 16 Blood Pressure 129/79 138/75 128/69 Pulse Oximetry 99 97 Oxygen Delivery Simple Face Mask Room Air Oxygen Flow Rate 8 11/27/24 11:15 11/27/24 11:30 11/27/24 11:45 Temperature Pulse Rate 75 76 76 Respiratory Rate 14 18 20 Blood Pressure 120/68 117/69 116/88 Pulse Oximetry 96 96 94 Oxygen Delivery Room Air Room Air Room Air Oxygen Flow Rate 11/27/24 11:55 11/27/24 12:55 11/27/24 15:45 Temperature 36.5 C 37.1 C Pulse Rate 76 71 99 Respiratory Rate 20 16 16 Blood Pressure 120/65 105/57 L 125/61 Pulse Oximetry 94 93 94 Oxygen Delivery Room Air Oxygen Flow Rate 11/27/24 15:45 11/27/24 21:57 11/27/24 23:45 Temperature 36.7 C 36.9 C Pulse Rate 105 H 103 H Respiratory Rate 20 20 Blood Pressure 130/75 141/75 H Pulse Oximetry 96 94 Oxygen Delivery Room Air Oxygen Flow Rate 11/27/24 23:45 11/28/24 05:01 11/28/24 05:01 Temperature 36.9 C Pulse Rate 100 Respiratory Rate 18 Blood Pressure 143/81 H Pulse Oximetry 94 Oxygen Delivery Room Air Room Air Oxygen Flow Rate Intake/Output Intake/Output: Intake & Output 11/25/24 11/26/24 11/27/24 11/28/24 23:59 23:59 23:59 23:59 Intake Total 1090 Output Total 1050 1450 Balance 40 -1450 Meds/Results Medications: Active Medications Generic Name Dose Route Start Last Admin Trade Name Freq PRN Reason Stop Dose Admin Acetaminophen 1,000 mg 11/27/24 12:00 11/28/24 04:40 Acetaminophen 500 Mg Tablet PO 1,000 mg Q6HR EDYTA Administration Docusate Sodium 100 mg 11/27/24 17:00 11/27/24 17:45 Docusate Sodium 100 Mg Capsule PO 100 mg BID EDYTA Administration Enoxaparin Sodium 40 mg 11/28/24 09:00 Enoxaparin 40 Mg/0.4 Ml Syringe SUB-Q DAILY [facility] Dextrose/Lactated Ringer's 1,000 mls @ 125 mls/hr 11/27/24 12:00 11/28/24 05:05 Dextrose 5%/Lactated Ringers IV CONT Not Given .Q8H [facility] Ibuprofen 600 mg 11/28/24 06:00 Ibuprofen 600 Mg Tablet PO Q6HR [facility] Lisinopril 10 mg 11/28/24 09:00 Lisinopril 10 Mg Tablet PO DAILY [facility] Naloxone HCl 0.1 mg 11/27/24 12:00 Naloxone Hcl 0.4 Mg/Ml Vial IV PUSH Q2M PRN Respiratory rate less than 10 Nifedipine 90 mg 11/28/24 09:00 Nifedipine 30 Mg Tab.Er.24 PO QAM [facility] Ondansetron HCl 4 mg 11/27/24 12:00 11/27/24 12:29 Ondansetron Inj 4 Mg/2 Ml Vial IV PUSH 4 mg Q6H PRN Administration Nausea And Vomiting Oxycodone HCl 5 mg 11/27/24 12:00 11/27/24 17:44 Oxycodone Hcl (*Crx) 5 Mg Tab Ir PO 5 mg Q4H PRN Administration Pain Rated 4-6 Oxycodone HCl 10 mg 11/27/24 12:00 Oxycodone Hcl (*Crx) 5 Mg Tab Ir PO Q6H PRN Pain Rated 7-10 Simethicone 80 mg 11/27/24 12:00 11/27/24 17:45 Simethicone 80 Mg Tab.Chew PO 80 mg TIDWM EDYTA Administration Labs 11/28/24 04:44 Labs: Laboratory Results - last 24 hr 11/28/24 04:44 WBC 15.4 H RBC 4.11 L Hgb 11.0 L Hct 33.6 L MCV 81.8 MCH 26.8 MCHC 32.7 RDW 13.2 Plt Count 276 MPV 10.2 Immature Gran % (Auto) 0.8 H Neut % (Auto) 69.7 Lymph % (Auto) 21.0 [place] % (Auto) 8.1 Eos % (Auto) 0.1 Baso % (Auto) 0.3 Lymph # (Auto) 3.24 H [place] # (Auto) 1.3 H Eos # (Auto) 0.0 Baso # (Auto) 0.1 Abs Immat Gran (auto) 0.12 H Absolute Neuts (auto) 10.8 H Absolute Nucleated RBC 0.000 Nucleated RBC % 0.0
[2024-11-28] MEDS: oxyCODONE HCL (*CRX) 5 MG TAB IR PO (09:27)
[2024-11-28] MEDS: IBUPROFEN 600 MG TABLET PO (09:42)
[2024-11-28] MEDS: SIMETHICONE 80 MG TAB.CHEW PO (09:43)
[2024-11-28] MEDS: DOCUSATE SODIUM 100 MG CAPSULE PO (09:43)
[2024-11-28] MEDS: ENOXAPARIN 40 MG/0.4 ML SYRINGE SUB-Q (09:44)
--- NOTE | 2024-11-28 10:26 | P.PNAN_ITS ---
Anes - Prog Note Post-Op Date/Time: 11/28/24 10:26 Cardiovascular status: normal Respiratory status: normal Airway patency: baseline Mental status: baseline Post-Op hydration status: normal Vital Signs: Last Vital Signs Temp 98.4 F 11/28/24 05:01 Pulse 100 11/28/24 05:01 Resp 18 11/28/24 05:01 BP 143/81 H 11/28/24 05:01 Pulse Ox 94 11/28/24 05:01 O2 Del Method Room Air 11/28/24 05:01 O2 Flow Rate 8 11/27/24 10:33 Pain Score (VAS): 2 I/O: Intake & Output 11/27/24 11/28/24 11/28/24 23:59 07:59 15:59 Intake Total 540 Output Total 650 1450 Balance -110 -1450 Laboratory Tests 11/28/24 04:44 11/28/24 04:44 WBC 15.4 H RBC 4.11 L Hgb 11.0 L Hct 33.6 L MCV 81.8 MCH 26.8 MCHC 32.7 RDW 13.2 Plt Count 276 MPV 10.2 Immature Gran % (Auto) 0.8 H Neut % (Auto) 69.7 Lymph % (Auto) 21.0 [place] % (Auto) 8.1 Eos % (Auto) 0.1 Baso % (Auto) 0.3 Lymph # (Auto) 3.24 H [place] # (Auto) 1.3 H Eos # (Auto) 0.0 Baso # (Auto) 0.1 Abs Immat Gran (auto) 0.12 H Absolute Neuts (auto) 10.8 H Absolute Nucleated RBC 0.000 Nucleated RBC % 0.0 Post-procedural complaints: none Patient Feedback: Patient satisfied with anesthetic care.
== END 2024-11-28 12:03 | disposition home or self-care (01) ==
LOC: ANHSURGERY 07:38 → ANHOB2 12:01
PROVIDERS: PCP Family Medicine; Visit Provider Obstetrics & Gynecology
PROC: (CPT 58552; principal; 2024-11-27 09:30)
DX: D25.0 Submucous leiomyoma of uterus (principal); N84.1 Polyp of cervix uteri; N83.8 Other noninflammatory disorders of ovary, fallopian tube and broad ligament; I10 Essential (primary) hypertension; E66.9 Obesity, unspecified; Z68.37 Body mass index [BMI] 37.0-37.9, adult; Z79.891 Long term (current) use of opiate analgesic; Z80.9 Family history of malignant neoplasm, unspecified
CPT/HCPCS: 58552; S2900; 36415; 85025; 88307; 99199; A9270; J0330; J0690; J1100; J1171; J1200; J1650; J1885; J2003; J2250; J2405; J2704; J3010; J7030; J7120; J7121

== ENCOUNTER 2025-02-20 09:23 | Outpatient (CLI) | payer OTHER, SELFPAY ==
--- OUTSIDE RECORDS SUMMARY | 2025-02-20 09:28 | XMS_ITS | Referral Summary ---
[facility] Organization [facility] Address [address] [place] [address] Care Team Providers Care Inlayer Name Role Phone Gurwinder Urena MD Primary Care Provider + Kodak Amato MD Unavailable [phone] Allergies Active Allergy Reactions Criticality Noted Date Comments Adhesive Other (See comments) Low 08/02/2022 Removes skin Pregabalin Hives,Vomiting High Reaction: Hives, Vomiting, Medications vit A/vit C/vit E/zinc/copper (PRESERVISION AREDS ORAL) Take 1 tablet by mouth 2 (two) times a day Active cholecalciferol (VITAMIN D-3) 2,000 unit tabletIndicatio ns:Vitamin D Deficiency Take 1 tablet (2,000 Units total) by mouth 2 (two) times a day Active cetirizine (ZyrTEC) 10 mg tabletIndicatio ns:Seasonal Allergic Rhinitis Take 1 tablet (10 mg total) by mouth nightly Active triamcinolone acetonide (NASACORT ALLERGY NASL) Active benzonatate (TESSALON) 100 mg capsuleIndicati ons:Cough Take 1 capsule (100 mg total) by mouth 3 (three) times a day as needed for cough 42 capsule 07/21/2024 Active Active Problems Problem Noted Date Diagnosed Date BMI 38.0-38.9,adult 12/17/2017 Assessment & Plan (12/17/2017 5:25 PM CAPACITY MANAGEMENT SPECIALIST): BMI Follow-up includes: education provided. Pain in shoulder 10/10/2017 Clavicle pain 10/10/2017 Knee pain 10/07/2017 Ankle pain 10/07/2017 Benign essential hypertension 08/03/2015 Overview (03/01/2017): Benign essential hypertension Resolved Problems Problem Noted Date Diagnosed Date Resolved Date Gestational diabetes mellitus (GDM) 08/03/2015 11/15/2017 Overview (03/01/2017): Gestational diabetes Immunizations Immunization Administration Dates Next Due Influenza, Quadrivalent, Velia l Culture-based MDCK, Preservative Free, Antibiotic Free, Intramuscular 09/04/2019 Influenza, Trivalent, Split, Preservative Free, Intradermal 08/30/2014 Influenza, Unspecified 01/02/2023(Deferr ed: Patient Refused),08/25/2020(Deferred: Patient Refused),10/05/2018,08/25/2017 Tdap 04/22/2015 Social History Tobacco Use Types Packs/Day Years Used Date Smoking Tobacco: Never Smokeless Tobacco: Never Tobacco Cessation:Counseling Given: Not Answered Comments:Parents both smoked around me for first 21 years AUDIT-C Answer Date Recorded Q1: How often do you have a drink containing alc ohol? Monthly or less 08/24/2022 Q2: How many drinks containi ng alcohol do you have on a typical day when you are drinking? 1 or 2 08/24/2022 Q3: How often do you have si x or more drinks on one occasion? Never 08/24/2022 PHQ-2 Answer Date Recorded PHQ-2 Total Score (If total score is 3 or more points, staff should administer the PHQ-9) 0 06/07/2022 Comments Unknown Sex and Gender Information Value Date Recorded Sex Assigned at Not on file Legal Sex Female 12:09 PM CAPACITY MANAGEMENT SPECIALIST Gender Identity Female 12/05/2021 11:01 AM CAPACITY MANAGEMENT SPECIALIST Sexual Orientation Straight 12/05/2021 11 :01 AM CAPACITY MANAGEMENT SPECIALIST Occupation Industry Job Start Date Job End Date teacher Not on file Not on file Not on file Last Filed Vital Signs Vital Sign Reading Time Taken Comments Blood Pressure 152/98 07/25/2024 3:01 PM CDT Pulse 102 07/25/2024 3:01 PM CDT Temperature 37.2 C (98.9 F) 07/25/2024 3:01 PM CDT Respiratory Rate 20 07/25/2024 3:01 PM CDT Oxygen Saturation 96% 07/25/2024 3:01 PM CDT Inhaled Oxygen Concentration - - Weight 106.6 kg (235 lb) 07/25/2024 3:01 PM CDT Height 167.6 cm (5' 6 ) 07/25/2024 3:01 PM CDT Body Mass Index 37.93 07/25/2024 3:01 PM CDT Plan of Treatment Not on file Medical Devices Implanted Type Area Ultrasound Tester Device Identifier Shelf Expiration Date Model / Serial / Lot [employer] Porp [place] Prosthesis Ossicular 655 - [id number] Implanted:Qty: 1 on 08/24/2022 by Juan Ramon Cotto MD at [facility] Right: Ear [employer] [id number] 03/25/2027 655 / / [id number] Procedures Procedure Name Priority Date/Time Associated Diagnosis Comments SCREENING MAMMOGRAM 2D BILATERAL Schedule Routine, Read Routine (OP Routine) 01/19/2022 from Last 3 Months or Most Recently Relevant to Health Maintenance Results * Screening Mammogram 2D Bilateral (01/19/2022) Anatomical Region Laterality Modality Breast Bilateral Mammography Historical Provider MD [facility] Temi l Result from Last 3 Months or Most Recently Relevant to Health Maintenance Insurance [facility] CHOICE PLUS [facility] CHOICE PLUS [facility] CHOICE PLUS Care Teams Inlayer Relationship Specialty Start Date End Date Gurwinder Urena MD [address] [address] PCP - General 02/22/17 Kodak Amato MD [address] [place] [place] [address] [place] [id number] Referring Physician Otolaryngology 01/08/23
--- OUTSIDE RECORDS SUMMARY | 2025-02-20 09:28 | XMS_ITS | Patient Health Record ---
Author Organization [facility] Address [address] [place] [address] Support Name Relationship Address Phone Mirian Washburn Guarantor Unknown [phone] Reason For Referral No Information Problems Problem Type SNOMED Code ICD Code Onset Dates Problem Status W/U Status Risk Notes Problem Arthralgia of the ankle and/or foot (622903339) Pain in right ankle and joints of right foot (M25.571) 6 Active confirmed Problem Sprain of right ankle (99887116783070 105) Sprain of unspecified ligament of right ankle, subsequent encounter (S93.401D) 6 Active confirmed Plan Of Treatment No Information Insurance Providers Payer Name Payer Address Payer Phone Subscriber Number Group Number Insured Name Patient Relationship to Insured Coverage Start Date Coverage End Date [facility] [address] [address] [place] [address] [id number] Mirian Washburn Self - patient is the insured 6
--- OUTSIDE RECORDS SUMMARY | 2025-02-20 09:28 | XMS_ITS ---
Author Organization [facility] Address [address] [place] [address] Care Team Providers Care Outbound Call Center Representative Name Role Phone zzzzMigration, zzzzProvider Unavailable Unav ailable REASON FOR VISIT EMR-Jose Encounters Encounter Location Date Provider Diagnosis [facility] [address] [place] [address] 09/15/2023 zzzzProvider zzzzMigration Plan Of Treatment No Information Progress Notes * Mirian ZUNIGA SDOB:[birth year] (44 yo F)Acc No.[id number]:09/15/2023 Patient: Mirian LONDONO :1980 A ge:43 Y S ex:Female [facility] [facility] [address] Subjective: * Chief Complaints: * E MR-Jose * Medical History: * Surgical History: * Hospitalization/Major Diagno stic Procedure: * Medications: Objective: * Vitals: * Physical Examination: Assessment: Plan: * Treatment: * Procedure Codes: * true * Date: Generated for Printi ng/Faxing/eTransmitting on: 0 02/20/2025 09:28 AM CDT
--- OUTSIDE RECORDS SUMMARY | 2025-02-20 09:28 | XMS_ITS | Clinical Summary ---
Author Organization [facility] C Address [address] [place] [address] Care Team Providers Care Administrative Assistant Data Entry Name Role Phone Gurwinder Urena MD Primary Care Provider + Kodak Amato MD Unavailable [phone] Allergies Active Allergy Reactions Criticality Noted Date [...] 12/17/2017 Assessment & Plan (12/17/2017 5:25 PM PIER RUNNER): BMI Follow-up includes: education provided. Pain in [...] ed: Patient Refused),08/25/2020(Deferred: Patient Refused),10/05/2018,08/25/2017 Tdap 04/22/2015 Surgical History Surgery Date Site/Laterality Comments CHOLECYSTECTOMY 11/25/2008 - 11/24/2009 Cholecystectomy TONSILLECTOMY 11/25/2015 - 11/24/2016 TYMPANOPLASTY Medical History Medical History Date Comments Hx Other Medical Allergies, seas onal; Comments: RRG 08/03/2015 - Gestational diabetes mellitus (GDM) Diabetes, gestational; Comments: RR 08/03/2015 - Hypertension Hypertension Motion sickness PONV (postoperative nausea and vomiting) GERD (gastroesophageal reflux disease) 2010 HL (hearing loss) Family History Medical History Relation Name Comments Allergies Brother Robert Alcohol abuse Father Ed Екатерина Alcoholism; Hearing loss Maternal Grandmother Ofelia Cancer Mother Rose Marie Perez Hearing loss Mother Rose Marie Perez Hypertension Mother Rose Marie Perez Hypertension; Hearing loss Mother's Sister Nia & paul Anesthesia problems Neg Hx Relation Name Status Comments Brother Robert Alive Father Ed Екатерина Alive Maternal Grandmother Ofelia Mother Rose Marie Perez Alive Mother's Sister Nia & paul Sister Alive Social History Tobacco Use Types Packs/Day Years [...] on file Legal Sex Female 12:09 PM PIER RUNNER Gender Identity Female 12/05/2021 11:01 AM PIER RUNNER Sexual Orientation Straight 12/05/2021 11 :01 AM PIER RUNNER Occupation Industry Job Start Date Job End Date teacher Not on file Not on file Not on file Obstetrics History Last Filed Vital Signs Vital Sign Reading [...] 07/25/2024 3:01 PM CDT Plan of Treatment Health Maintenance Due Date Last Done Comments Cervical Cancer Screening 1979 Colon Cancer Screening-Colonoscopy 1979 Hepatitis C Screening 1979 Hepatitis B Screening 1997 Breast Cancer Screening-Mammogram 01/19/2023 01/19/2022 Depression Screening 06/07/2023 06/07/2022, 03/21/2022, 11/15/2017 Regular Well Visit/Exam 18-64 01/02/2024 01/02/2023, 12/21/2021, 11/15/2017 Influenza Vaccine (#1) 2024 9, 10/05/2018, 08/25/2017, Additional history exists DTaP/Tdap/Td Vaccine (2 - Td or Tdap) 04/22/2025 04/22/2015 HPV Vaccines Aged Out No longer eligi ble based on patient's age to complete this topic Pneumococcal vaccine <65 Aged Out No longer eligible based on patient's age to complete this topic Medical Devices Implanted Type Area Road Commissioner Device Identifier Shelf Expiration Date Model / Serial / Lot Jodie Zelaya Porp Sulphur Prosthesis Ossicular 655 - [id number] Implanted:Qty: 1 on 08/24/2022 by Juan Ramon Cotto MD at [facility] Right: Ear [employer] [id number] 03/25/2027 655 / / [id number] Procedures Procedure Name Priority Date/Time Associated Diagnosis [...] Most Recently Relevant to Health Maintenance Insurance [facility] PLUS [facility] PLUS [facility] PLUS Care Teams Administrative Assistant Data Entry Relationship Specialty Start Date End Date Gurwinder Urena MD [address] [facility] [address], [place] [address] PCP - General 02/22/17 Kodak Amato MD [address] [facility] [address] [place] [address] Referring Physician Otolaryngology 01/08/23
--- OUTSIDE RECORDS SUMMARY | 2025-02-20 09:28 | XMS_ITS ---
Author Organization [facility] Address [address] [facility] [address] [place] [address] Care Team Providers Care Auto Technician Mechanic Name Role Phone zzzzMigration, zzzzProvider Unavailable Unav ailable REASON FOR VISIT EMR-Jose Encounters Encounter Location Date Provider Diagnosis [facility] [address] [facility] [address] [place] [address] 09/14/2023 zzzzProvider zzzzMigration Plan Of Treatment No Information Progress Notes * Mirian ZUNIGA SDOB:[birth year] (44 yo F)Acc No.[id number]:09/14/2023 Patient: Mirian LONDONO :1980 A ge:43 Y S ex:Female [facility] [facility] [address] Subjective: * Chief Complaints: * E MR-Jose * Medical History: * Surgical History: * Hospitalization/Major Diagno stic Procedure: * Medications: Objective: * Vitals: * Physical Examination: Assessment: Plan: * Treatment: * Procedure Codes: * true * Date: Generated for Printi ng/Faxing/eTransmitting on: 0 02/20/2025 09:28 AM CDT
--- OUTSIDE RECORDS SUMMARY | 2025-02-20 09:28 | XMS_ITS | Continuity of Care Document ---
Author Organization [facility] [place] [address] [place] [address] Phone Care Team Providers Care Barrel Coater Name Role Phone Willis OD, Frandy Unavailable Unavailable Procedures Procedure Date Eye Exam & Treatment Refraction Vision Svcs Frames Purchases SV Poly Carb Sph [place] To +/- 4 009 Polycarb Lens Per Lens Eye Exam, New Patient Refraction Advance Directives Directive Yes / No Effective Date File Name No Information Encounters Encounter Description Practice Location Reason(s) For Visit Diagnoses Date Provider Providers Copied on Encounter [facility], [address] [place] [address] [address], [place], [place], [id number], [place] tel:[phone] [facility] No Information Oct-2 1-201 0 Willis OD Frandy. [address] , [address], [place], [address], [place]. tel:[phone] [facility], [address], [place], [place], [id number], [place] tel:[phone] [facility] No Information Oct-0 6-200 9 [facility] . [address] [facility] [facility] [address], [place], [place], [id number], [place]. tel:[phone] Referring Provider: Frandy Willis OD A, [address], [place], [address]. tel:[phone] [facility], [address], [place], [place], [id number], [place] tel:[phone] [facility] No Information Jul-2 4-200 9 Willis OD Frandy. [address] , [address], [place], [address], [place]. tel:[phone] Family History Family Member Type Diagnosis Age At Onset No Information Payers Payer name Insurance type Covered libertarian ID Alicia riverawesly(s) [facility] [id number] Social History Type Description Quantity Date Captured Comments Sex Female Smoking Status No Information Chief Complaint And Reason For Visit No Information Reason For Referral Reason For Referral No Information History Of Present Illness Encounter Date Complaint History Of Prese nt Illness No Information Functional Status Date Functional Assessmen t No Information Instructions Date Instruction Additional Infor mation No Information Assessments Type Assessment Date No Information Patient Care Teams Name Effective Dates (start - stop) Status Members No Information
--- OUTSIDE RECORDS SUMMARY | 2025-02-20 09:28 | XMS_ITS | Clinical Summary ---
Author Organization [facility] [employer] Address [address] [place] [address] Care Team Providers Care Geomorphology Teacher Name Role Phone Seth Alanis MD Primary Care Provider [phone] Source Comments [facility] [employer],non-[facility] Affiliates and Associated Physician Practices is amultiple site organization consisting of ambulatory clinics and hospital sitesin [place], [place], [place] and [place]. This disclosure is being madepursuant to the Care Everywhere program and may not contain all information available regarding this patient. Last updated 18.[facility] [employer] Allergies Active Allergy Reactions Criticality Noted Date Comments Adhesive Sensitivity Skin Reactions 07/17/2010 Pt states that her skin comes off with use of adhesive. Pregabalin Rash 06/01/2009 Medications * Be aware that medications may not be up to date on this document. Alwaysverify current medications with the patient. Medication Sig Dispensed Refills Start Date End Date Status Norethin Guerrero-Eth Estrad-FE (LOESTRIN 24 FE PO) daily. Active Fexofenadine HCl (TIFFANI ALLERGY PO) Take by mouth. Active NIFEdipine CR osmotic 24hr (NIFEDICAL XL) 60 MG tablet Take 60 mg by mouth once daily. Active omeprazole (PRILOSEC) 40 MG capsule Take 40 mg by mouth daily before breakfast. Active mometasone (NASONEX) 50 MCG/ACT nasal spray [place] 2 Sprays into each nostril once daily. Active clarithromycin (BIAXIN) 500 MG tabletIndications :Bronchitis, acute Take 1 Tab by mouth every 12 hours. 20 Tab 0 09/06/2014 Active predniSONE (DELTASONE) 10 MG tabletIndications :Bronchitis, acute 4 tabs daily for 2 days the 3 tabs daily for 4 days then 2 tabs daily for 4 days then 1 tab daily for 4 days 32 Tab 0 09/06/2014 Active guaifenesin-codei ne (ROBITUSSIN AC) 100-10 MG/5ML syrupIndications: Bronchitis, acute Take 5 mL by mouth every 4 hours as needed for Cough. 240 mL 0 09/06/2014 Active guaifenesin-codei ne (ROBITUSSIN AC) 100-10 MG/5ML syrup Take 5 mL by mouth every 4 hours as needed for Cough. 240 mL 0 10/15/2014 Active azithromycin (ZITHROMAX) 250 mg austen Take 1 Kit by mouth as directed. Take as directed 1 Kit 0 10/15/2014 Active methylPREDNISolon e (MEDROL DOSEPAK) 4 MG tabletIndications :URI (upper respiratory infection) Take by mouth as directed. 21 Packet 0 10/18/2014 Active amoxicillin-clavu lanate (AUGMENTIN) 875-125 MG tablet Take 875 mg by mouth 2 times daily with morning and evening meal Active Vit-Fe Fumarate-FA ( VITAMIN) 28-0.8 MG tablet Take 1 Tab by mouth once daily Active lisinopril (PRINIVIL; ZESTRIL) 10 MG tablet Take 10 mg by mouth once daily Active Cetirizine HCl (ZYRTEC PO) Active hydrocortisone (Anusol-HC) 25 MG suppository Insert 1 (one) suppository into the rectum 2 times daily For 3 weeks scheduled. For flare ups, take twice daily for one week. 50 suppository 3 10/29/2023 Active Active Problems Problem Noted Date Diagnosed Date Essential hypertension, benign 03/29/2012 Internal hemorrhoids 05/22/2011 Overview (08/25/2015): Cervical cancer screening 06/01/2009 Overview (06/01/2009): April 2008 Annual physical exam 06/01/2009 Overview (06/01/2009): FEBRUARY 28 2009 Asthma 06/01/2009 SOB (shortness of breath) 06/01/2009 Seasonal allergies Acid reflux Ankle swelling Immunizations Name Administration Dates Next Due TDAP (7yrs+) 04/22/2015 Family History Medical History Relation Name Comments Hypertension Mother Migraine Mother Relation Name Status Comments Brother Alive Mother Alive Sister Alive Social History Tobacco Use Types Packs/Day Years Used Date Smoking Tobacco: Never Alcohol Use Standard Drinks/Week Comments Yes 0 (1 standard drink = 0.6 oz pur e alcohol) seldom-one drink a month Sex and Gender Information Value Date Recorded Sex Assigned at Not on file Gender Identity Not on file Sexual Orientation Not on file Last Filed Vital Signs Vital Sign Reading Time Taken Comments Blood Pressure 140/85 10/29/2023 11:35 AM PUBLISHING SYSTEMS ANALYST Pulse 106 10/29/2023 11:35 AM PUBLISHING SYSTEMS ANALYST Temperature 36.5 C (97.7 F) 01/11/2016 7:48 PM PUBLISHING SYSTEMS ANALYST Respiratory Rate 20 10/29/2023 11:35 AM PUBLISHING SYSTEMS ANALYST Oxygen Saturation 97% 10/29/2023 11:35 AM PUBLISHING SYSTEMS ANALYST Inhaled Oxygen Concentration - - Weight 105.2 kg (232 lb) 10/29/2023 11:35 AM PUBLISHING SYSTEMS ANALYST Height 167.6 cm (5' 6 ) 10/29/2023 11:35 AM PUBLISHING SYSTEMS ANALYST Body Mass Index 37.45 10/29/2023 11:35 AM PUBLISHING SYSTEMS ANALYST Plan of Treatment Health Maintenance Due Date Last Done Comments COLOGUARD (AGES 45-75) - COLON CA SCREENING 1979 COLON MONITORING 1979 COLONOSCOPY - COLON CA SCREENING 1979 CT COLONOGRAPHY - COLON CA SCREENING 1979 Colorectal Cancer Screening 1979 FIT - COLON CA SCREENING 1979 FLEX SIG - COLON CA SCREENING 1979 MAMMOGRAM 1979 PAP SMEAR 1979 HIV SCREENING 1994 HEPATITIS C SCREENING 06/20/1997 HEPATITIS B VACCINE (1 of 3 - 19+ 3-dose series) 1998 PNEUMOCOCCAL VACCINE (1 of 2 - PCV) 1998 LIPID TESTING 05/09/2017 05/09/2012 SCREENING FOR DIABETES 10/29/2023 01/11/2016, 2011 COVID-19 VACCINE ( season) 2024 INFLUENZA VACCINE (#1) 2024 9, 10/05/2018, 08/25/2017, Additional history exists DEPRESSION SCREENING 11/25/2024 DTAP/TDAP/TD VACCINES (2 - Td or Tdap) 04/22/2025 04/22/2015 ZOSTER VACCINE (1 of 2) 2029 HIB VACCINE Aged Out No longer eligi ble based on patient's age to complete this topic HPV VACCINE Aged Out No longer eligi ble based on patient's age to complete this topic MENINGOCOCCAL (Group B) VACCINE SHARED DECISION-MAKING Aged Out No longer eligible based on patient's age to complete this topic MENINGOCOCCAL GROUPS A/C/Y/W VACCINE Aged Out No longer eligible based on patient's age to complete this topic Goals Goal Patient Goal Type Associated Problems Recent Progress Patient-Stated? Author Blood Pressure < 140/90 Blood Pressure 140/85(2022 11:35 AM PUBLISHING SYSTEMS ANALYST) No Minda Syed MA Procedures Procedure Name Priority Date/Time Associated Diagnosis Comments COMPREHENSIVE METABOLIC PANEL STAT 01/11/2016 4:19 PM PUBLISHING SYSTEMS ANALYST LIPID PROFILE 05/09/2012 10:20 AM CDT from Last 3 Months or Most Recently Relevant to Health Maintenance Results * (ABNORMAL) COMPREHENSIVE METABOLIC PANEL (01/11/2016 4:19 PM PUBLISHING SYSTEMS ANALYST) Glucose 143(H) 74 - 106 mg/dL 01/11/2016 4:47 PM PUBLISHING SYSTEMS ANALYST [facility] Sodium 141 136 - 145 mmol/L 01/11/2016 4:47 PM PUBLISHING SYSTEMS ANALYST [facility] Potassium 3.5 3.5 - 5.1 mmol/L 01/11/2016 4:47 PM PUBLISHING SYSTEMS ANALYST [facility] Chloride 107 98 - 107 mmol/L 01/11/2016 4:47 PM PUBLISHING SYSTEMS ANALYST [facility] CO2 24 22 - 31 mmol/L 01/11/2016 4:47 PM PUBLISHING SYSTEMS ANALYST [facility] Calcium 9.1 8.5 - 10.1 mg/dL 01/11/2016 4:47 PM PUBLISHING SYSTEMS ANALYST [facility] Anion Gap 10 5 - 20 mmol/L 01/11/2016 4:47 PM PUBLISHING SYSTEMS ANALYST [facility] BUN 11 7 - 21 mg/dL 01/11/2016 4:47 PM PUBLISHING SYSTEMS ANALYST [facility] Creatinine 0.58 0.50 - 1.30 mg/dL 01/11/2016 4:47 PM [facility] Alkaline Phosphatase 122 38 - 126 U/L 01/11/2016 4:47 PM PUBLISHING SYSTEMS ANALYST [facility] ALT 89(H) 12 - 78 U/L 01/11/2016 4:47 PM [facility] AST 36 5 - 40 U/L 01/11/2016 4:47 PM [facility] Protein Total 8.4(H) 6.4 - 8.2 gm/dL 01/11/2016 4:47 PM [facility] Albumin 3.9 3.4 - 5.0 gm/dL 01/11/2016 4:47 PM [facility] Bilirubin Total 0.3 0.2 - 1.0 mg/dL 01/11/2016 4:47 PM [facility] eGFR by MDRD >60 >60 mL/min/1.7 3m2 01/11/2016 4:47 PM [facility] eGFR by MDRD >60 >60 mL/min/1.7 3m2 01/11/2016 4:47 PM [facility] Blood BLOOD SPECIMEN / Unknown Venipuncture / Unknown 01/11/2016 4:19 PM PUBLISHING SYSTEMS ANALYST 01/11/2016 4:29 PM PUBLISHING SYSTEMS ANALYST Nancy Arroyo DO LAB - CHEMISTRY [facility] Organization Address City/State/[facility] Co de Phone Number [facility] [address] [place], [place] [id number] * (ABNORMAL) LIPID PROFILE (05/09/2012 10:20 AM CDT) Cholesterol 238(H) 125 - 200 mg/dL [facility] Comment: Test Performed at: [facility] [id number] [place] [id number] ESTRELLA MAYA DO,MPH HDL Cholesterol 54 > OR = 46 mg/dL [facility] Triglycerides 247(H) <150 mg/dL [facility] LDL Calculated 135(H) <130 mg/dL (calc) [facility] Comment: Desirable range <100 mg/dL for patients with CHD or diabetes and <70 mg/dL for diabetic patients with known heart disease. CHOL/HDLC RATIO 4.4 < OR = 5.0 (calc) [facility] Non HDL Cholesterol 184 mg/dL (calc) [facility] Comment: Target for non-HDL cholesterol is 30 mg/dL higher than LDL cholesterol target. 05/09/2012 10:2 0 AM CDT 05/09/2012 10:20 AM CDT Gurwinder Urena MD LAB - CHEMISTRY [facility] [address] [place] [address] from Last 3 Months or Most Recently Relevant to Health Maintenance Care Teams Geomorphology Teacher Relationship Specialty Start Date End Date Seth Alanis MD [address] [place] [address] PCP - General Family Medicine 10/29/23
[2025-02-20 09:49] LABS: Hematocrit 42.4 % (37.0-47.0); Mean Corpuscular Volume 78.7 fl (80-100); Mean Platelet Volume 9.8 fl (7.4-10.4); Platelet Count Result 320 k/mm3 (150-375); Red Blood Count 5.39 M/mm3 (4.2-5.4); Red Cell Distribution Width 13.5 % (11.5-14.5)
[2025-02-20 10:00] LABS: Alanine Aminotransferase 29 U/L (6-35); Albumin Level 4.7 g/dL (3.5-5.1); Alkaline Phosphatase 80 U/L (38-126); Anion Gap 13 mmol/L (4-12); Aspartate Amino Transferase 28 U/L (14-36); Bilirubin,Total 0.7 mg/dL (0.2-1.3); Blood Urea Nitrogen 12 mg/dL (7-17); Calcium 9.5 mg/dL (8.4-10.2); Carbon Dioxide 22 mmol/L (22-30); Chloride 104 mmol/L (98-107); Cholesterol 250 mg/dL (0-200); Estimated Glomerular Filt Rate > 60; Glucose 110 mg/dL (65-110); HDL Direct 46 mg/dL; Potassium 4.3 mmol/L (3.4-5.0); Sodium 139 mmol/L (137-145); Triglycerides 239 mg/dL (<150)
[2025-02-20 10:08] LABS: Hemoglobin A1C 5.5 % (<5.7)
[2025-02-20 10:12] LABS: LDL Cholesterol Direct 153 mg/dL
== END 2025-02-20 09:24 | disposition home or self-care (01) ==
LOC: ANHLAB 09:26
PROVIDERS: PCP Family Medicine; Visit Provider Family Medicine
DX: R74.01 Elevation of levels of liver transaminase levels (principal); I10 Essential (primary) hypertension; E66.9 Obesity, unspecified; R73.09 Other abnormal glucose; Z00.00 Encounter for general adult medical examination without abnormal findings
CPT/HCPCS: 36415; 80053; 80061; 83036; 85027

== ENCOUNTER 2025-03-06 08:23 | Emergency (ER) | payer OTHER, SELFPAY ==
--- NOTE | ~2025-03-06 | XR_ITS ---
EXAM/ PROCEDURE: XR foot LT min 3V - 03/06/2025 08:55 CDT HISTORY: 44 years old Female with drop a phone on toe 3 wks ag, pain dorsal distal metatarsals COMPARISON: None available TECHNIQUE: Four view(s) FINDINGS/ IMPRESSION: There are no fractures or dislocations.Joint space narrowing, subchondral sclerosis, subchondral cyst formation and osteophyte formation, compatible with moderate osteoarthritis. Achilles tendon entheso renetta. Reviewed, dictated and finalized at location A.
[2025-03-06 08:40] VITALS: BP 162/84; PULSE 100; RESP 16; TEMP 36.6; O2SAT 100
--- NOTE | 2025-03-06 09:04 | ED.GENADULT ---
HPI - General Adult General Chief complaint: Extremity Injury, Lower Stated complaint: INJURED L FOOT Time Seen by Provider: 03/06/25 09:04 Source: patient Mode of arrival: ambulatory Limitations: no limitations History of Present Illness HPI narrative: 44-year-old female presents to the [facility] with complaints of left foot pain. Patient states about 2 weeks ago she dropped her phone on to her 4th toe/left foot. Patient states that her toe was bruised for quite a while. Patient states she has been trying to elevate it and ice it every once a while and has been taking ibuprofen every once while for pain. Patient states she has been walking on it denies wrapping it. 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 Denies any numbness or tingling to the toes at this time. Related Data Home Medications ?Medication ?Instructions ?Recorded ?Confirmed ?Last Taken ?Type cetirizine 10 mg tablet (Zyrtec) 10 mg PO HS PRN Allergic Symptoms 09/19/23 11/16/24 Unknown History Adult One Daily Multivitamin 1 tablet BYMOUTH DAILY 03/18/24 11/27/24 11/24/24 History vitamins A,C,R-hwkf-ugwoxx 4,296 1 cap PO QAM AND QPM 03/18/24 11/27/24 11/24/24 History mcg-226 mg-90 mg capsule (PreserVision AREDS) cholecalciferol (vitamin D3) 25 25 mcg PO BID 02/17/25 Unknown History mcg (1,000 unit) tablet Allergies Allergy/AdvReac Type Severity Reaction Status Date / Time pregabalin Allergy Mild Hives Verified 02/17/25 14:56 adhesive tape Allergy Unknown Verified 02/17/25 14:56 Review of Systems Review of Systems: CONSTITUTIONAL: Denies fever, chills, or sweats. EYES: Denies visual changes, redness, or discharge. ENT: Denies rhinorrhea, congestion, sore throat, or otalgia. CARDIOVASCULAR: Denies chest pain, palpitations, or edema. RESPIRATORY: Denies cough or dyspnea. GASTROINTESTINAL: Denies abdominal pain, nausea, vomiting, or diarrhea. GENITOURINARY: Denies dysuria or hematuria. SKIN: Denies rash or itching. MUSCULOSKELETAL: Denies back pain, joint pain, or myalgia. Positive left foot pain x2 weeks NEUROLOGIC: Denies headache, numbness, or weakness. PSYCHIATRIC: Denies anxiety or depression. [facility] Past Medical History Medical History Hypertension PONV (postoperative nausea and vomiting) Fibroid Family History Family History Mother Cancer Hypertension Father Alcoholism Grandparent Cancer Hypertension Social History Social History Smoking status: Never smoker Second hand tobacco smoke exposure: Yes (occassional) Alcohol intake: current Drinks per week: 0 Alcohol use details: x1 month occassionally Substance use: never Substance use type: does not use Living arrangements: with family Spiritual care concerns: No Comments At the time of my signature I agree with nursing past medical history, surgical, social, and family history. There is no relevant family history pertinent to the presenting complaint. Exam Narrative: GENERAL: Well-appearing, well-nourished, and in no acute distress. HEAD: Normocephalic, atraumatic. EYES: PERRLA and EOMI. ENT: Nares clear, no rhinorrhea or epistaxis. Mucous membranes moist. NECK: Supple. No lymphadenopathy CHEST: Clear to auscultation. No respiratory distress. HEART: Regular rate and rhythm. No murmur heard. Normal peripheral pulses. ABDOMEN: Soft, nontender, nondistended, normal active bowel sounds. EXTREMITIES: Patient able to bear weight and ambulate that has increased in pain to the left foot. during exam patient is noted to be limping. No surface trauma At this time, no ecchymosis, erythema, lesions, ulcers or break in skin integrity. The L foot is without obvious asymmetry or deformity when compared to the R foot. No bony step-off, tender to palpation over the 4th and 5th toes, hand along the 4th and 5th metatarsal of themidfoot no pain over the hindfoot or sole. Normal plantar/dorsiflexion, inversion/eversion. Distal motor and neurovascular status are intact SKIN: Warm, dry, no rash. NEURO: No focal deficits. Alert and oriented x3. Course Course Level of Care: Express Care Visit Reevaluation(s) Reevaluation #1: notify patient that her x-ray is negative for any acute fractures. Discussed with her this is most likely a contusion or sprain that is not getting better due to the swelling. Encouraged patient to continue using an Guerrero wrap to help decrease the swelling will also provide postop shoe to help keep the pressure off of her foot when she walks. May continue to take Tylenol ibuprofen as needed for pain and highly recommend that she elevates her foot as much as possible. Patient verbalized understanding denies any other questions or concerns at this time. Date: 03/06/25 Time: 09:31 Vital Signs Vital signs: Vital Signs Temperature 36.6 C 03/06/25 08:40 Pulse Rate 100 03/06/25 08:40 Respiratory Rate 16 03/06/25 08:40 Blood Pressure 162/84 H 03/06/25 08:40 Pulse Oximetry 100 03/06/25 08:40 Temperature 36.6 C 03/06/25 08:40 Pulse Rate 100 03/06/25 08:40 Respiratory Rate 16 03/06/25 08:40 Blood Pressure 162/84 H 03/06/25 08:40 Pulse Oximetry 100 03/06/25 08:40 Vital signs reviewed. The patient has been informed that they may have pre-hypertension or Hypertension based on a BP reading in the department. I recommend that the patient call the primary care provider listed on their discharge instructions or a physician of their choice this week to arrange follow up for further evaluation of possible pre-hypertension or Hypertension Medical Decision Making MDM Narrative Medical decision making narrative: plan care for patients to x-ray the left foot to assess for any acute fracture. We will assess after x-ray has resulted. Differential Diagnosis Differential Diagnosis: Differential diagnosis: Foot fracture, crush injury, compartment syndrome, contusion, sprain, tendinitis,lisfranc sprain or fracture, avulsion fracture, grown toenail, diabetic ulcer. Vital Signs Vital Signs: Vital Signs Temperature 36.6 C 03/06/25 08:40 Pulse Rate 100 03/06/25 08:40 Respiratory Rate 16 03/06/25 08:40 Blood Pressure 162/84 H 03/06/25 08:40 Pulse Oximetry 100 03/06/25 08:40 Temperature 36.6 C 03/06/25 08:40 Pulse Rate 100 03/06/25 08:40 Respiratory Rate 16 03/06/25 08:40 Blood Pressure 162/84 H 03/06/25 08:40 Pulse Oximetry 100 03/06/25 08:40 Imaging Data Radiologist's impression: Express Care [facility] [place] [address] XRay Report Signed Patient: Mirian Washburn : 1980 MR#: [id number] Age: 44 Acct:[id number] Loc: [facility] ADM Date: 03/06/25Attending Dr: Ordering Physician: Christine Acuna PHYSICIAN'S AIDE Date of Service: 03/06/25 Procedure(s): XR foot LT min 3V Accession Number(s): [id number] cc: Seth Alanis MD; Christine Acuna PHYSICIAN'S AIDE~ EXAM/ PROCEDURE: XR foot LT min 3V - 03/06/2025 08:55 CDT HISTORY: 44 years old Female with drop a phone on toe 3 wks ag, pain dorsal distal metatarsals COMPARISON: None available TECHNIQUE: Four view(s) FINDINGS/ IMPRESSION: There are no fractures or dislocations.Joint space narrowing, subchondral sclerosis, subchondral cyst formation and osteophyte formation, compatible with moderate osteoarthritis. Achilles tendon enthesopathy. Reviewed, dictated and finalized at location A. Critical Care Time Critical Care Time Critical Care Time: No Discharge Plan Discharge Clinical Impression: Other sprain of left foot, initial encounter Patient Disposition: Home Condition: Stable Instructions: Antibiotic Form, Foot Contusion (ED), Foot Sprain (ED) Additional Instructions: Avoid weight bearing until the pain subsides. Ice to the area 20-30 minutes 4-6 times a day Elevate above heart Elastic wrap or orthopedic splint as directed for comfort for the next 5-7 days Tylenol for lesser pain Ibuprofen regularly for the next 2-3 days for the inflammation Follow up with your primary care provider if the condition is not improving within 1 week or sooner if the Condition worsens with numbness, tingling, decrease sensation with weakness to seek ER. Patient Language: Bahraini Prescriptions: No Action cetirizine [Zyrtec] 10 mg tablet 10 mg PO HS PRN (Reason: Allergic Symptoms) cholecalciferol (vitamin D3) 25 mcg (1,000 unit) tablet 25 mcg PO BID Patient Comments: Takes 2 in am and 3 at HS Rx Instructions: 2 in the morning and 2 in the evening Takes 2 in am and 3 at HS Adult One Daily Multivitamin 1 tablet BYMOUTH DAILY Patient Comments: Says takes twice a day. PreserVision AREDS 4,296 mcg-226 mg-90 mg Capsule 1 cap PO QAM AND QPM nifedipine 90 mg tablet extended release 24hr See Rx Instructions .ROUTE .COMPLEX Qty: 90 3RF Dose Instruction: TAKE 1 TABLET DAILY Rx Instructions: TAKE 1 TABLET DAILY lisinopril 10 mg tablet See Rx Instructions .ROUTE .COMPLEX Qty: 90 3RF Dose Instruction: TAKE 1 TABLET DAILY Rx Instructions: TAKE 1 TABLET DAILY Follow-up/Referrals: Seth Alanis MD [Primary Care Provider] - Time of Disposition: 09:31
== END 2025-03-06 09:37 | disposition home or self-care (01) ==
PROVIDERS: Emergency Provider Nurse Practitioner Family; PCP Family Medicine
DX: S93.602A Unspecified sprain of left foot, initial encounter (principal); I10 Essential (primary) hypertension; W22.8XXA Striking against or struck by other objects, initial encounter
CPT/HCPCS: 73630; 99213; G0463

== ENCOUNTER 2025-05-01 10:41 | Emergency (ER) | payer OTHER, SELFPAY ==
[2025-05-01 10:55] VITALS: BP 166/86; PULSE 92; RESP 16; TEMP 36.9; O2SAT 98
--- NOTE | 2025-05-01 11:19 | ED_ITS ---
HPI - Allergic Reaction General Chief complaint: Allergic Reaction Stated complaint: Allergic Reaction Time Seen by Provider: 05/01/25 11:25 Source: patient Mode of arrival: ambulatory Limitations: no limitations History of Present Illness HPI narrative: 44 yo female presented for c/o red itchy face and eye swelling. Onset yesterday. Endorses using a new face cream 3-4 times. Also reports eating clam chowder. De nies lip, tongue, or throat swelling, shortness of breath or wheezing. Denies changes to soap, detergent, lotion, or any other exposures. No one else in the house or any contacts with similar symptoms. Pt took Scheduled zyrtec last night and 2 Benadryl. Has not taken anything today. Related Data Home Medications ?Medication ?Instructions ?Recorded ?Confirmed ?Last Taken ?Type cetirizine 10 mg tablet (Zyrtec) 10 mg PO HS PRN Allergic Symptoms 09/19/23 05/01/25 Unknown History Adult One Daily Multivitamin 1 tablet BYMOUTH DAILY 03/18/24 05/01/25 11/24/24 History vitamins A,C,F-rxbw-ezglov 4,296 1 cap PO QAM AND QPM 03/18/24 05/01/25 11/24/24 History mcg-226 mg-90 mg capsule (PreserVision AREDS) cholecalciferol (vitamin D3) 25 25 mcg PO BID 02/17/25 05/01/25 Unknown History mcg (1,000 unit) tablet Allergies Allergy/AdvReac Type Severity Reaction Status Date / Time lopez pepper Allergy Intermediate Hives Verified 05/01/25 11:05 corn Allergy Intermediate Abdominal Verified 05/01/25 11:05 Pain pregabalin Allergy Mild Hives Verified 05/01/25 10:49 adhesive tape Allergy Unknown Verified 05/01/25 10:49 Review of Systems Review of Systems: CONSTITUTIONAL: Denies body aches, fever, chills, or sweats. EYES: Denies visual changes, redness, or discharge. ENT: Denies rhinorrhea, congestion CARDIOVASCULAR: Denies chest pain, palpitations, or edema. RESPIRATORY: Denies cough or dyspnea. GASTROINTESTINAL: Denies abdominal pain, nausea, vomiting, or diarrhea. SKIN: per HPI MUSCULOSKELETAL: Denies back pain, joint pain, or myalgia. NEUROLOGIC: Denies headache, numbness, tingling, or weakness. PMFSH Past Medical History Medical History Hypertension PONV (postoperative nausea and vomiting) Fibroid Family History Family History Mother Cancer Hypertension Father Alcoholism Grandparent Cancer Hypertension Social History Social History Smoking status: Never smoker Second hand tobacco smoke exposure: Yes (occassional) Alcohol intake: current Drinks per week: 0 Alcohol use details: x1 month occassionally Substance use: never Substance use type: does not use Living arrangements: with family Spiritual care concerns: No Comments At time of signature, I have reviewed and agree with nursing past medical, surgical, social and family history unless otherwise noted. Please see nursing chart for further information. There is no relevant family history pertinent to the presenting complaint Exam Narrative: GENERAL: Well-appearing HEAD: Normocephalic, atraumatic. EYES: conjunctivae clear, and EOMI. ENT: Mucous membranes moist. No lip or tongue swelling. Oropharynx without edema, erythema or lesions. NECK: Supple. No lymphadenopathy CHEST: Clear to auscultation. HEART: Regular rate and rhythm. SKIN: Warm, dry. Face appears erythematous with papules, periorbital Swelling noted. NEURO: Alert and oriented x3. Course Course Emergency Course: Patient is aware of diagnosis, understands and agrees to treatment plan. Anticipatory guidance given. Patient agrees to follow-up as directed and is aware of reasons to seek care at the emergency department. Portions of this record may have been created with voice recognition software Level of Care: Express Care Visit Vital Signs Vital signs: Vital Signs Temperature 98.4 F 05/01/25 10:55 Pulse Rate 92 05/01/25 10:55 Respiratory Rate 16 05/01/25 10:55 Blood Pressure 166/86 H 05/01/25 10:55 Pulse Oximetry 98 05/01/25 10:55 Temperature 98.4 F 05/01/25 10:55 Pulse Rate 92 05/01/25 10:55 Respiratory Rate 16 05/01/25 10:55 Blood Pressure 166/86 H 05/01/25 10:55 Pulse Oximetry 98 05/01/25 10:55 Reviewed MDM - Allergic Reaction MDM Narrative Medical decision making narrative: Discussed physical exam findings cw allergic reaction. PO steroid, pepcid and benadryl given in clinic. Pt reassessed. Significant improvement in periorbital swelling and redness noted. Pt continues to report itching. Reviewed Rx. Advised supportive measures and signs/symptoms to go to the ER. Pt is appropriate for outpt treatment and f/u. Differential Diagnosis Differential diagnosis: Likely anaphylaxis, allergic reaction, angioedema, contact dermatitis, adverse reaction to drug, viral enanthem and urticaria Discharge Plan Discharge Clinical Impression: Allergic reaction Patient Disposition: Home Condition: Stable Instructions: General Allergic Reaction (ED) Additional Instructions: RX: Take steroids and Pepcid as directed. (start 05/02/25) Over the counter Benadryl every 8 hours as needed (may take tonight) Cool compresses to the sites of itching, avoid hot water. Avoid scratching to reduce the risk of infection Recommend avoiding that skin cream. Wash with gentle soap and water only. Follow up with your primary care provider as needed in 1 week Go to the ER for worsening symptoms or concerns (lip, tongue, throat swelling/itching, trouble breathing etc) Patient Language: Chinese Prescriptions: New famotidine [Pepcid] 40 mg tablet 40 mg PO DAILY Qty: 10 0RF prednisone 20 mg tablet 20 mg PO DAILY Qty: 12 0RF Rx Instructions: take 3 tablets daily for 2 days, then 2 tablets daily for 2 days then 1 tablet daily for 2 days Start 05/02. No Action cetirizine [Zyrtec] 10 mg tablet 10 mg PO HS PRN (Reason: Allergic Symptoms) cholecalciferol (vitamin D3) 25 mcg (1,000 unit) tablet 25 mcg PO BID Patient Comments: Takes 2 in am and 3 at HS Rx Instructions: 2 in the morning and 2 in the evening Takes 2 in am and 3 at HS Adult One Daily Multivitamin 1 tablet BYMOUTH DAILY Patient Comments: Says takes twice a day. PreserVision AREDS 4,296 mcg-226 mg-90 mg Capsule 1 cap PO QAM AND QPM nifedipine 90 mg tablet extended release 24hr See Rx Instructions .ROUTE .COMPLEX Qty: 90 3RF Dose Instruction: TAKE 1 TABLET DAILY Rx Instructions: TAKE 1 TABLET DAILY lisinopril 10 mg tablet See Rx Instructions .ROUTE .COMPLEX Qty: 90 3RF Dose Instruction: TAKE 1 TABLET DAILY Rx Instructions: TAKE 1 TABLET DAILY Follow-up/Referrals: Seth Alanis MD [Primary Care Provider] - Time of Disposition: 11:58
--- NOTE | 2025-05-01 11:36 | PC.NURSE ---
medications would not scan.
== END 2025-05-01 12:10 | disposition home or self-care (01) ==
PROVIDERS: Emergency Provider Nurse Practitioner Family; PCP Family Medicine
DX: T78.40XA Allergy, unspecified, initial encounter (principal); I10 Essential (primary) hypertension
CPT/HCPCS: 99213; G0463

== ENCOUNTER 2025-05-11 08:33 | Outpatient (CLI) | payer OTHER, SELFPAY ==
--- OUTSIDE RECORDS SUMMARY | 2025-05-11 08:55 | XMS_ITS | Continuity of Care Document ---
Author Organization [facility] Address [address] [place] [address] Phone Care Team Providers Care Key Entry Operator Name Role Phone Willis OD, Frandy Unavailable Unavailable Procedures Procedure Date Eye Exam & Treatment Refraction Vision Svcs Frames Purchases SV Poly Carb Sph [place] To +/- 4 009 Polycarb Lens Per Lens Eye Exam, New Patient Refraction Advance Directives Directive Yes / No Effective Date File Name No Information Encounters Encounter Description Practice Location Reason(s) For Visit Diagnoses Date Provider Providers Copied on Encounter [facility], [address] [place] [address] [address], [place], [place], [id number], [place] tel:[phone] [facility] No Information Oct-2 1-201 0 Willis OD Frandy. [address] , [address], [place], [address], [place]. tel:[phone] [facility], [address], [place], [place], [id number], [place] tel:[phone] [facility] No Information Oct-0 6-200 9 [facility] . [address], [place], [place], [id number], [place]. tel:[phone] Referring Provider: Frandy Willis OD A, [address], [place], [address]. tel:[phone] [facility], [address], [place], [place], [id number], [place] tel:[phone] [facility] No Information Jul-2 4-200 9 Willis OD Frandy. [address] , [address], [place], [address], [place]. tel:[phone] Family History Family Member Type Diagnosis Age At Onset No Information Payers Payer name Insurance type Covered democrat ID Alicia riverawesly(s) [facility] [id number] Social History Type Description Quantity Date Captured [...]
--- OUTSIDE RECORDS SUMMARY | 2025-05-11 08:55 | XMS_ITS | Clinical Summary ---
Author Organization [facility] Address [address] [place] [address] Care Team Providers Care Production Metal Sprayer Name Role Phone Seth Alanis MD Primary Care Provider [phone] Source Comments [facility],non-[facility] Affiliates and Associated Physician Practices is amultiple site organization consisting of ambulatory clinics and hospital sitesin [place], [place], [place] and [place]. This disclosure is being madepursuant to the Care Everywhere program and may not contain all information available regarding this patient. Last updated 18.[facility] Allergies Active Allergy Reactions Criticality Noted Date Comments Adhesive Sensitivity Skin Reactions 07/17/2010 Pt states that her skin comes off with use of adhesive. Pregabalin Rash 06/01/2009 Medications * Be aware that medications may not be up to date on this document. Alwaysverify current medications with the patient. Norethin Guerrero-Eth Estrad-FE (LOESTRIN 24 FE PO) daily. Active Fexofenadine HCl (TIFFANI ALLERGY PO) Take by mouth. Act benito NIFEdipine CR osmotic 24hr (NIFEDICAL XL) 60 MG tablet Take 60 mg by mouth once daily. Active omeprazole (PRILOSEC) 40 MG capsule Take 40 mg by mouth daily before breakfast. Active mometasone (NASONEX) 50 MCG/ACT nasal spray Mountain 2 Sprays into each nostril once daily. Active clarithromycin (BIAXIN) 500 MG tabletIndicatio ns:Bronchitis, acute Take 1 Tab by mouth every 12 hours. 20 Tab 0 09/06/20 14 Active predniSONE (DELTASONE) 10 MG tabletIndicatio ns:Bronchitis, acute 4 tabs daily for 2 days the 3 tabs daily for 4 days then 2 tabs daily for 4 days then 1 tab daily for 4 days 32 Tab 0 09/06/20 14 Active guaifenesin-cod eine (ROBITUSSIN AC) 100-10 MG/5ML syrupIndication s:Bronchitis, acute Take 5 mL by mouth every 4 hours as needed for Cough. 240 mL 0 09/06/20 14 Active guaifenesin-cod eine (ROBITUSSIN AC) 100-10 MG/5ML syrup Take 5 mL by mouth every 4 hours as needed for Cough. 240 mL 0 10/15/20 14 Active azithromycin (ZITHROMAX) 250 mg austen Take 1 Kit by mouth as directed. Take as directed 1 Kit 0 10/15/20 14 Active methylPREDNISol one (MEDROL DOSEPAK) 4 MG tabletIndicatio ns:URI (upper respiratory infection) Take by mouth as directed. 21 Packet 0 10/18/20 14 Active amoxicillin-cla vulanate (AUGMENTIN) 875-125 MG tablet Take 875 mg [...] daily for one week. 50 suppository 3 10/29/20 23 Active Active Problems Problem Noted Date Diagnosed Date Essential hypertension, benign 03/29/2012 Internal hemorrhoids 05/22/2011 Overview (08/25/2015): Cervical cancer screening 06/01/2009 Overview (06/01/2009): April 2008 Annual physical exam 06/01/2009 Overview (06/01/2009): FEBRUARY 28 2009 Asthma 06/01/2009 SOB (shortness of breath) 06/01/2009 Seasonal allergies Acid reflux Ankle swelling Immunizations Immunization Administration Dates Next Due TDAP (7yrs+) 04/22/2015 Family History Medical History Relation Name Comments Hypertension Mother Migraine Mother Relation Name Status Comments Brother Alive Mother Alive Sister Alive Social History Tobacco Use Types Packs/Day Years Used Date Smoking Tobacco: Never Alcohol Use Standard Drinks/Week Comments Yes 0 (1 standard drink = 0.6 oz pur e alcohol) seldom-one drink a month Comments No Sex and Gender Information Value Date Recorded Sex Assigned at Not on file Legal Sex Female 7:23 AM MULTIPLE CUT OFF SAW OPERATOR Gender Identity Not on file Sexual Orientation Not on file 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 Not on file Not on file Not on file Last Filed Vital Signs Vital Sign Reading Time Taken Comments Blood Pressure 140/85 10/29/2023 11:35 AM MULTIPLE CUT OFF SAW OPERATOR Pulse 106 10/29/2023 11:35 AM MULTIPLE CUT OFF SAW OPERATOR Temperature 36.5 C (97.7 F) 01/11/2016 7:48 PM MULTIPLE CUT OFF SAW OPERATOR Respiratory Rate 20 10/29/2023 11:35 AM MULTIPLE CUT OFF SAW OPERATOR Oxygen Saturation 97% 10/29/2023 11:35 AM MULTIPLE CUT OFF SAW OPERATOR Inhaled Oxygen Concentration - - Weight 105.2 kg (232 lb) 10/29/2023 11:35 AM MULTIPLE CUT OFF SAW OPERATOR Height 167.6 cm (5' 6) 10/29/2023 11:35 AM MULTIPLE CUT OFF SAW OPERATOR Body Mass Index 37.45 10/29/2023 11:35 AM MULTIPLE CUT OFF SAW OPERATOR Plan of Treatment Health Maintenance Due Date Last Done Comments COLOGUARD (AGES 45-75) - COLON CA SCREENING 1979 COLON MONITORING 1979 COLONOSCOPY - COLON CA SCREENING 1979 CT COLONOGRAPHY - COLON CA SCREENING 1979 Colorectal Cancer Screening 1979 FIT - COLON CA SCREENING 1979 FLEX SIG - COLON CA SCREENING 1979 MAMMOGRAM 1979 HIV SCREENING 1994 HEPATITIS C SCREENING 06/20/1997 HEPATITIS B VACCINE (1 of 3 - 19+ 3-dose series) 1998 PNEUMOCOCCAL VACCINE (1 of 2 - PCV) 1998 PAP SMEAR 2000 PAP with HPV 2009 LIPID TESTING 05/09/2017 05/09/2012 SCREENING FOR DIABETES 10/29/2023 01/11/2016, 2011 COVID-19 VACCINE (1 - season) 2024 DEPRESSION SCREENING 11/25/2024 DTAP/TDAP/TD VACCINES (2 - Td or Tdap) 04/22/2025 04/22/2015 INFLUENZA VACCINE (Season Ended) 2025 09/04/2019, 10/05/2018, 08/25/2017, Additional history exists ZOSTER VACCINE (1 of 2) 2029 HIB [...] < 140/90 Blood Pressure 140/85(2022 11:35 AM MULTIPLE CUT OFF SAW OPERATOR) No Minda Syed MA Procedures Procedure Name Priority Date/Time Associated Diagnosis Comments COMPREHENSIVE METABOLIC PANEL STAT 01/11/2016 4:19 PM MULTIPLE CUT OFF SAW OPERATOR LIPID PROFILE 05/09/2012 10:20 AM CDT from Last 3 Months or Most Recently Relevant to Health Maintenance Results * (ABNORMAL) COMPREHENSIVE METABOLIC PANEL (01/11/2016 4:19 PM MULTIPLE CUT OFF SAW OPERATOR) Glucose 143(H) 74 - 106 mg/dL 01/11/2016 4:47 PM MULTIPLE CUT OFF SAW OPERATOR [facility] Sodium 141 136 - 145 mmol/L 01/11/2016 4:47 PM MULTIPLE CUT OFF SAW OPERATOR [facility] Potassium 3.5 3.5 - 5.1 mmol/L 01/11/2016 4:47 PM MULTIPLE CUT OFF SAW OPERATOR [facility] Chloride 107 98 - 107 mmol/L 01/11/2016 4:47 PM MULTIPLE CUT OFF SAW OPERATOR [facility] CO2 24 22 - 31 mmol/L 01/11/2016 4:47 PM MULTIPLE CUT OFF SAW OPERATOR [facility] Calcium 9.1 8.5 - 10.1 mg/dL 01/11/2016 4:47 PM MULTIPLE CUT OFF SAW OPERATOR [facility] Anion Gap 10 5 - 20 mmol/L 01/11/2016 4:47 PM [facility] BUN 11 7 - 21 mg/dL 01/11/2016 4:47 PM [facility] Creatinine 0.58 0.50 - 1.30 mg/dL 01/11/2016 4:47 PM [facility] Alkaline Phosphatase 122 38 - 126 U/L 01/11/2016 4:47 PM [facility] ALT 89(H) 12 - 78 U/L 01/11/2016 4:47 PM [facility] AST 36 5 - 40 U/L 01/11/2016 4:47 PM [facility] Protein Total 8.4(H) 6.4 - 8.2 gm/dL 01/11/2016 4:47 PM [facility] Albumin 3.9 3.4 - 5.0 gm/dL 01/11/2016 4:47 PM [facility] Bilirubin Total 0.3 0.2 - 1.0 mg/dL 01/11/2016 4:47 PM [facility] eGFR by MDRD >60 >60 mL/min/1.7 3m2 01/11/2016 4:47 PM [facility] eGFR by MDRD >60 >60 mL/min/1.7 3m2 01/11/2016 4:47 PM [facility] Blood BLOOD SPECIMEN / Unknown Venipuncture / Unknown 01/11/2016 4:19 PM MULTIPLE CUT OFF SAW OPERATOR 01/11/2016 4:29 PM MULTIPLE CUT OFF SAW OPERATOR Nancy Arroyo DO LAB - CHEMISTRY ORDERABLES Fin al Result Performing Organization Address City/State/[facility] Co de Phone Number [facility] [address] [place] [address] * (ABNORMAL) LIPID PROFILE (05/09/2012 10:20 AM CDT) Cholesterol 238(H) 125 - 200 mg/dL [facility] Comment: Test Performed at: [facility] [address] [place] [address] ESTRELLA MAYA DO,MPH HDL Cholesterol 54 > [...] 0 AM CDT 05/09/2012 10:20 AM CDT us Gurwinder Urena MD LAB - CHEMISTRY ORDERABLE S Final Result [facility] [id number] [place] [address] from Last 3 Months or Most Recently Relevant to Health Maintenance Insurance SELF PAY NO INSURANCE Member Subscriber Plan / Payer (Ef fective for All Dates) Name:Mirian Washburn Member ID:Not on file Relation to Subscriber:Self Name:MIRIAN WASHBURN Subscriber ID:Not on file Payer ID:Not on file Group ID:Not on file Type:Self Pay Address: [facility] [employer] [facility] * Guarantor: MIRIAN WASHBURN Account Type Relation to Patient Date of Phone Billing Address Personal/Family [address] [phone] PENDING SALE TO [facility] SELF PAY NO INSURANCE Member Subscriber Plan / Payer (Ef fective for All Dates) Name:Mirian Washburn S Member ID:Not on file Relation to Subscriber:Not on file Name:MIRIAN WASHBURN Subscriber ID:Not on file (Home) Address: [address] [place] [address] Payer ID:Not on file Group ID:Not on file Type:Self Pay Address: [facility] * Guarantor: MIRIAN WASHBURN Account Type Relation to Patient Date of Phone Billing Address Personal/Family [address] [phone] [facility] SELF PAY NO INSURANCE Member Subscriber Plan / Payer (Ef fective for All Dates) Name:Mirian Washburn S Member ID:Not on file Relation to Subscriber:Not on file Name:MIRIAN WASHBURN Subscriber ID:Not on file (Home) Address: [address] [address] Payer ID:Not on file Group ID:Not on file Type:Self Pay Address: [place], [place] * Guarantor: MIRIAN WASHBURN Account Type Relation to Patient Date of Phone Billing Address Personal/Family [address] [place] [address] [place] [address] CARE SELF PAY NO INSURANCE Member Subscriber Plan / Payer (Ef fective for All Dates) Name:Mirian Washburn S Member ID:Not on file Relation to Subscriber:Not on file Name:MIRIAN WASHBURN Subscriber ID:Not on file (Home) Address: [address] [place] [address] Payer ID:Not on file Group ID:Not on file Type:Self Pay Address: [place], [place] Care Teams Production Metal Sprayer Relationship Specialty Start Date End Date Seth Alanis MD [address] [place] [id number] PCP - General Family Medicine 10/29/23
--- OUTSIDE RECORDS SUMMARY | 2025-05-11 08:55 | XMS_ITS | Referral Summary ---
[facility] Organization [facility] Address [address] [place] [address] Care Team Providers Care Batch Dumper Name Role Phone Gurwinder Urena MD Primary Care Provider + Kodak Amato MD Unavailable [phone] Allergies Active Allergy Reactions Criticality Noted Date [...] 12/17/2017 Assessment & Plan (12/17/2017 5:25 PM PHOTO RETOUCHER): BMI Follow-up includes: education provided. Pain in [...] on file Legal Sex Female 12:09 PM PHOTO RETOUCHER Gender Identity Female 12/05/2021 11:01 AM PHOTO RETOUCHER Sexual Orientation Straight 12/05/2021 11 :01 AM PHOTO RETOUCHER Occupation Industry Job Start Date Job End [...] 3:01 PM CDT Height 167.6 cm (5' 6) 07/25/2024 3:01 PM CDT Body Mass Index 37.93 07/25/2024 3:01 PM CDT Plan of Treatment Not on file Medical Devices Implanted Type Area Roll Icer Machine Device Identifier Shelf Expiration Date Model / Serial / Lot Jodie Medical Porp [place] Prosthesis Ossicular 655 - [id number] Implanted:Qty: 1 on 08/24/2022 by Juan Ramon Cotto MD at [facility] [place] Right: Ear [employer] [id number] 03/25/2027 655 / / [id number] Procedures Procedure Name Priority Date/Time Associated Diagnosis [...] Most Recently Relevant to Health Maintenance Insurance [facility] PL[facility] Care Teams Batch Dumper Relationship Specialty Start Date End Date Gurwinder Urena MD [address] [address] PCP - General 02/22/17 Kodak Amato MD [address] [place] [address] [place] [address] Referring Physician Otolaryngology 01/08/23
--- OUTSIDE RECORDS SUMMARY | 2025-05-11 08:55 | XMS_ITS | Patient Health Record ---
Author Organization [facility] Address [address] [facility] [place] [address] Support Name Relationship Address Phone Mirian Washburn Guarantor Unknown [phone] Reason For Referral No Information Problems Problem Type SNOMED Code ICD Code Onset Dates Problem Status W/U Status Risk Notes Problem Arthralgia of the ankle and/or foot (622479504) Pain in right ankle and joints of right foot (M25.571) 6 Active confirmed Problem Sprain of right ankle (28033706625933 105) Sprain of unspecified ligament of right ankle, subsequent encounter (S93.401D) 6 Active confirmed Plan Of Treatment No Information Insurance Providers Payer Name Payer Address Payer Phone Subscriber Number Group Number Insured Name Patient Relationship to Insured Coverage Start Date Coverage End Date [employer] [place] [employer] [facility] [address] [address] [place] [address] [id number] Mirian Washburn Self - patient is the insured 6
--- OUTSIDE RECORDS SUMMARY | 2025-05-11 08:55 | XMS_ITS | Clinical Summary ---
Author Organization [facility] Address [address] [place] [address] Care Team Providers Care News Cameraman Name Role Phone Gurwinder Urena MD Primary Care Provider + Kodak Amato MD Unavailable [phone] Allergies Active Allergy Reactions Criticality Noted Date [...] 12/17/2017 Assessment & Plan (12/17/2017 5:25 PM INSPECTOR AND ADJUSTER [employer]OLF [employer]UB HEAD): BMI Follow-up includes: education provided. Pain in [...] on file Legal Sex Female 12:09 PM INSPECTOR AND ADJUSTER [employer] Gender Identity Female 12/05/2021 11:01 AM INSPECTOR AND ADJUSTER [employer] Sexual Orientation Straight 12/05/2021 11 :01 AM INSPECTOR AND ADJUSTER [employer] HEAD Occupation Industry Job Start Date Job End [...] Well Visit/Exam 18-64 01/02/2024 01/02/2023, 12/21/2021, 11/15/2017 DTaP/Tdap/Td Vaccine (2 - Td or Tdap) 04/22/2025 04/22/2015 Influenza Vaccine (Season Ended) 2025 09/04/2019, 10/05/2018, 08/25/2017, Additional history exists HPV Vaccines Aged Out No longer eligi ble based on patient's age to complete this topic Pneumococcal vaccine <65 Aged Out No longer eligible based on patient's age to complete this topic Medical Devices Implanted Type Area Geomatics Professor Device Identifier Shelf Expiration Date Model / Serial / Lot Jodie Zelaya Porp [place] Prosthesis Ossicular 655 - [id number] Implanted:Qty: 1 on 08/24/2022 by Juan Ramon Cotto MD at [facility] Right: Ear [employer] [id number] 03/25/2027 655 / / [id number] Procedures Procedure Name Priority Date/Time Associated Diagnosis [...] Most Recently Relevant to Health Maintenance Insurance [facility] CHOICE PLUS [facility] H[facility]/PPO Address: [facility] [address] [place] [address] [facility] CHOICE PLUS [facility] HMO/PPO Address: [address] [place], [place] [phone] [facility] CHOICE PLUS [facility] HMO/PPO Address: [address] [place], [place] [phone] Care Teams News Cameraman Relationship Specialty Start Date End Date Gurwinder Urena MD [address] [facility] [address], [place] [address] PCP - General 02/22/17 Kodak Amato MD [address] [facility] [address] [place] [address] Referring Physician Otolaryngology 01/08/23
== END 2025-05-11 08:34 | disposition home or self-care (01) ==
LOC: ANHSURGERY 08:37
PROVIDERS: PCP Family Medicine; Visit Provider Obstetrics & Gynecology
DX: N83.209 Unspecified ovarian cyst, unspecified side (principal)
CPT/HCPCS: 36415; 86850; 86900; 86901

== ENCOUNTER 2025-05-13 02:12 | Day surgery (SDC) | payer OTHER, SELFPAY ==
[2025-05-10 13:48] VITALS: BMI 37.5
--- NOTE | 2025-05-10 13:49 | PC.NURSE ---
Report to the Outpatient Waiting Room, entrance under the green pavilion located off [facility], at time _0630_ on date _[id number]_. Planned Procedure Time: _0830_.? Time changes happen often and if your time is changed the preop area will call you the afternoon before. - You and your visitor will be asked to self-screen and do not enter if you have any COVID symptoms. Please call surgeon if you need to reschedule. - A mask is optional within the hospital at this time. Patients may have clear liquids (water, carbonated beverages, clear teas, apple juice) until 3 hours prior to surgery with a maximum of 20 ounces. - No food from midnight until time of surgery and no smoking, or chewing tobacco (or any form of nicotine). No chewing gum, candy or mints. Take only the following medications with a SIP of water on the morning of surgery: ____Nifedipine DO NOT STOP ANY OF YOUR OTHER PRESCRIPTION MEDICATIONS PRIOR TO SURGERY EXCEPT THE FOLLOWING Hold all vitamins and supplements for 3 days per anesthesiologist. Medications to discontinue per physician Date to take last dose___stop now.____ Please no make-up, nail swedish, hairspray, perfume, deodorant, or body powder the day of surgery.? No jewelry (including any body piercings) or valuables the day of surgery, leave them at home.? Please take a shower or bath the night before, or the morning of, surgery with an antibacterial soap.? Wear comfortable, loose fitting clothing.? - Jewelry must be removed prior to entering the operating room.? Rings and piercings that are not removed may be cut off. - The hospital will not accept responsibility for valuables.? - Please leave all valuables, including medications, at home the day of surgery. If you are going home after surgery, a licensed flag car driver must drive you home.? - NO public transportation without another adult if you receive anesthesia. - We recommend that an adult stay with you for 24 hours following discharge. - We also recommend that you do not drive, make important decision, drink alcoholic beverages, or take any drugs that were not prescribed by your health care provider for at least 24 hours after your discharge time. Follow any additional instructions given to you from your surgeon. Telephone instructions given to ___Amber__and asked if any additional questions and then verbalized understanding. Patient advised to call surgeon office or pre surgery nurse liaison [phone] if any additional questions.
--- NOTE | 2025-05-12 07:20 | P.HP_ITS ---
H&P: HPI History of Present Illness Date/Time: 05/12/25 07:20 Chief Complaint: Pelvic pain with ovarian cyst vaginal bleeding Narrative: Is a 44-year-old female who underwent hysterectomy in November complaining of some vaginal bleeding ultrasound shows cyst and abnormalities were seen vagina. However she continues to have this vaginal bleeding and incomplete healing as expected. Review of Systems Review of Systems: CONSTITUTIONAL: Denies body aches, fever, chills, or sweats. EYES: Denies visual changes, redness, or discharge. ENT: Denies rhinorrhea, congestion CARDIOVASCULAR: Denies chest pain, palpitations, or edema. RESPIRATORY: Denies cough or dyspnea. GASTROINTESTINAL: Denies abdominal pain, nausea, vomiting, or diarrhea. SKIN: per HPI MUSCULOSKELETAL: Denies back pain, joint pain, or myalgia. NEUROLOGIC: Denies headache, numbness, tingling, or weakness. [facility] Past Medical History Medical History Hypertension PONV (postoperative nausea and vomiting) Fibroid Family History Family History Mother Cancer Hypertension Father Alcoholism Grandparent Cancer Hypertension Social History Social History Smoking status: Never smoker Second hand tobacco smoke exposure: Yes (occassional) Alcohol intake: current Drinks per week: 0 Alcohol use details: x1 month occassionally Substance use: never Substance use type: does not use Living arrangements: with family Spiritual care concerns: No Meds Home Medications and Allergies Home Medications ?Medication ?Instructions ?Recorded ?Confirmed ?Type cetirizine 10 mg tablet (Zyrtec) 10 mg PO HS PRN Allergic Symptoms 09/19/23 05/10/25 History Adult One Daily Multivitamin 1 tablet BYMOUTH DAILY 03/18/24 05/10/25 History vitamins A,C,T-npko-kkxyne 4,296 1 cap PO QAM AND QPM 03/18/24 05/10/25 History mcg-226 mg-90 mg capsule (PreserVision AREDS) nifedipine 90 mg tablet,extended See Rx Instructions .Route 06/22/24 05/10/25 Rx release 24 hr .COMPLEX #90 tabs lisinopril 10 mg tablet See Rx Instructions .Route 07/28/24 05/10/25 Rx .COMPLEX #90 tabs cholecalciferol (vitamin D3) 25 25 mcg PO BID 02/17/25 05/10/25 History mcg (1,000 unit) tablet Allergies Allergy/AdvReac Type Severity Reaction Status Date / Time lopez pepper Allergy Intermediate Hives Verified 05/10/25 13:39 corn Allergy Intermediate Abdominal Verified 05/10/25 13:39 Pain pregabalin Allergy Mild Hives Verified 05/10/25 13:39 adhesive tape Allergy Unknown Verified 05/10/25 13:39 Exam Const: General: cooperative, healthy appearing, comfortable and overweight Orientation/consciousness: oriented to person, oriented to place and oriented to time Resp: Effort & Inspection: normal respiratory effort Cardio: Rate: regular rate Rhythm: regular rhythm Heart sounds: S1 normal heart sound present and S2 normal heart sound present GI: Inspection: normal to inspection : External Female Exam: normal external appearance Speculum Exam - Vagina: normal appearance of the vagina Speculum Exam - Cervix: Cervix absent Bimanual exam- vagina & uterus: uterus absent Bimanual Exam- Adnexa, other: tender bilaterally and cul-de-sac tenderness Assessment and Plan Assessment and plan (1) Pelvic pain: Code(s): R10.2 - Pelvic and perineal pain Status: Acute (2) Vaginal bleeding: Code(s): N93.9 - Abnormal uterine and vaginal bleeding, unspecified Status: Acute Plan Will proceed with laparoscopic cystectomy and repair of vaginal laceration
[2025-05-13] VITALS (14 sets, daily range): BP systolic 121–161; BP diastolic 68–89; PULSE 92–107; RESP 12–20; TEMP 36.2–37.6; O2SAT 92–99
--- OUTSIDE RECORDS SUMMARY | 2025-05-13 02:16 | XMS_ITS | Clinical Summary ---
Author Organization [facility] Address [address] [facility] [place] [address] Care Team Providers Care Mirror Machine Feeder Name Role Phone Gurwinder Urena MD Primary Care Provider + Kodak Amato MD Unavailable [phone] Allergies Active Allergy Reactions Criticality Noted Date [...] 12/17/2017 Assessment & Plan (12/17/2017 5:25 PM CRAPS MANAGER): BMI Follow-up includes: education provided. Pain in [...] on file Legal Sex Female 12:09 PM CRAPS MANAGER Gender Identity Female 12/05/2021 11:01 AM CRAPS MANAGER Sexual Orientation Straight 12/05/2021 11 :01 AM CRAPS MANAGER Occupation Industry Job Start Date Job End [...] this topic Medical Devices Implanted Type Area Supervisor Cap And Hat Production Device Identifier Shelf Expiration Date Model / Serial / Lot Jodie Zelaya Porp [place] Prosthesis Ossicular 655 - [id number] Implanted:Qty: 1 on 08/24/2022 by Juan Ramon Cotto MD at [facility] Right: Ear [employer] [id number] 03/25/2027 655 / / [id number] Procedures Procedure Name Priority Date/Time Associated Diagnosis [...] Most Recently Relevant to Health Maintenance Insurance [facility] CHO[facility] PL[facility]PPO Address: [facility] [address] [place] [address] [facility]/PPO Address: [address] [place], [place] [phone] [facility]/PPO Address: [address] [place], [place] [phone] Care Teams Mirror Machine Feeder Relationship Specialty Start Date End Date Gurwinder Urena MD [address], [place] [address] PCP - General 02/22/17 Kodak Amato MD [address] [facility] [address] [place] [address] Referring Physician Otolaryngology 01/08/23
--- OUTSIDE RECORDS SUMMARY | 2025-05-13 02:16 | XMS_ITS | Continuity of Care Document ---
Author Organization [facility] Address [address] [place] [address] Phone Care Team Providers Care Printing Sign Machine Operator Name Role Phone Willis OD, Frandy Unavailable Unavailable Procedures Procedure Date Eye Exam & Treatment Refraction Vision Svcs Frames Purchases SV Poly Carb Sph [place] To +/- 4 009 Polycarb Lens Per Lens Eye Exam, New Patient Refraction Advance Directives Directive Yes / No Effective Date File Name No Information Encounters Encounter Description Practice Location Reason(s) For Visit Diagnoses Date Provider Providers Copied on Encounter [facility], [address] [place] [address] [address], [place], [place], [id number], [place] tel:[phone] [facility] No Information Oct-2 1-201 0 Willis OD Frandy. [address], [place], [address], [place]. tel:[phone] [facility], [address], [place], [place], [id number], [place] tel:[phone] [facility] No Information Oct-0 6-200 9 [facility] . [address] [facility] [facility] [address], [place], [place], [id number], [place]. tel:[phone] Referring Provider: Frandy Willis OD A, [address], [place], [address]. tel:[phone] [facility], [address], [place], [place], [id number], [place] tel:[phone] [facility] No Information Jul-2 4-200 9 Willis OD Frandy. [address], [place], [address], [place]. tel:[phone] Family History Family Member Type Diagnosis Age At Onset No Information Payers Payer name Insurance type Covered green party ID Alicia riverawesly(s) [facility] [id number] Social History Type Description Quantity Date Captured [...]
--- OUTSIDE RECORDS SUMMARY | 2025-05-13 02:16 | XMS_ITS | Clinical Summary ---
Author Organization [facility] Address [address] [place] [address] Care Team Providers Care Admiralty Lawyer Name Role Phone Seth Alanis MD Primary Care Provider [phone] Source Comments [facility] Affiliates and Associated Physician Practices is amultiple site organization consisting of ambulatory clinics and hospital sitesin [place], [place], [place] and [place]. This disclosure is being madepursuant to the Care Everywhere program and may not contain all information available regarding this patient. Last updated 18.[facility] Allergies Active Allergy Reactions Criticality Noted Date [...] Active mometasone (NASONEX) 50 MCG/ACT nasal spray [place] 2 Sprays into each nostril once daily. 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 Not on file Not on file Not on file Last Filed Vital Signs Vital Sign Reading Time Taken Comments Blood Pressure 140/85 10/29/2023 11:35 AM AIR POLLUTION AUDITOR Pulse 106 10/29/2023 11:35 AM AIR POLLUTION AUDITOR Temperature 36.5 C (97.7 F) 01/11/2016 7:48 PM AIR POLLUTION AUDITOR Respiratory Rate 20 10/29/2023 11:35 AM AIR POLLUTION AUDITOR Oxygen Saturation 97% 10/29/2023 11:35 AM AIR POLLUTION AUDITOR Inhaled Oxygen Concentration - - Weight 105.2 kg (232 lb) 10/29/2023 11:35 AM AIR POLLUTION AUDITOR Height 167.6 cm (5' 6) 10/29/2023 11:35 AM AIR POLLUTION AUDITOR Body Mass Index 37.45 10/29/2023 11:35 AM AIR POLLUTION AUDITOR Plan of Treatment Health Maintenance Due Date [...] < 140/90 Blood Pressure 140/85(2022 11:35 AM AIR POLLUTION AUDITOR) No Minda Syed MA Procedures Procedure Name Priority Date/Time Associated Diagnosis Comments COMPREHENSIVE METABOLIC PANEL STAT 01/11/2016 4:19 PM AIR POLLUTION AUDITOR LIPID PROFILE 05/09/2012 10:20 AM CDT from Last 3 Months or Most Recently Relevant to Health Maintenance Results * (ABNORMAL) COMPREHENSIVE METABOLIC PANEL (01/11/2016 4:19 PM AIR POLLUTION AUDITOR) Glucose 143(H) 74 - 106 mg/dL 01/11/2016 4:47 PM AIR POLLUTION AUDITOR [facility] Sodium 141 136 - 145 mmol/L 01/11/2016 4:47 PM AIR POLLUTION AUDITOR [facility] Potassium 3.5 3.5 - 5.1 mmol/L 01/11/2016 4:47 PM AIR POLLUTION AUDITOR [facility] Chloride 107 98 - 107 mmol/L 01/11/2016 4:47 PM AIR POLLUTION AUDITOR [facility] CO2 24 22 - 31 mmol/L 01/11/2016 4:47 PM AIR POLLUTION AUDITOR [facility] Calcium 9.1 8.5 - 10.1 mg/dL 01/11/2016 4:47 PM AIR POLLUTION AUDITOR [facility] Anion Gap 10 5 - 20 mmol/L 01/11/2016 4:[address] [facility] BUN 11 7 - 21 mg/dL 01/11/2016 4:[address] [facility] Creatinine 0.58 0.50 - 1.30 mg/dL 01/11/2016 4:[address] [facility] Alkaline Phosphatase 122 38 - 126 U/L 01/11/2016 4:[address] [facility] ALT 89(H) 12 - 78 U/L 01/11/2016 4:[address] [facility] AST 36 5 - 40 U/L 01/11/2016 4:[address] [facility] Protein Total 8.4(H) 6.4 - 8.2 gm/dL 01/11/2016 4:[address] [facility] Albumin 3.9 3.4 - 5.0 gm/dL 01/11/2016 4:[address] [facility] Bilirubin Total 0.3 0.2 - 1.0 mg/dL 01/11/2016 4:[address] [facility] eGFR by MDRD >60 >60 mL/min/1.7 3m2 01/11/2016 4:[address] [facility] eGFR by MDRD >60 >60 mL/min/1.7 3m2 01/11/2016 4:[address] [facility] Blood BLOOD SPECIMEN / Unknown Venipuncture / Unknown 01/11/2016 4:19 PM AIR POLLUTION AUDITOR 01/11/2016 4:29 PM AIR POLLUTION AUDITOR Nancy Arroyo DO LAB - CHEMISTRY ORDERABLES Fin al Result Performing Organization Address City/State/[facility] Co de Phone Number [facility] [address] [place] [address] * (ABNORMAL) LIPID PROFILE (05/09/2012 10:20 AM CDT) Cholesterol 238(H) 125 - 200 mg/dL [facility] Comment: Test Performed at: [email or web address] [place] [address] [address] [facility] [place] [address] ESTRELLA AMYA DO,MPH HDL Cholesterol 54 > OR = [...] - CHEMISTRY ORDERABLE S Final Result [facility] [address] [place] [address] from Last 3 Months or Most Recently Relevant to Health Maintenance Insurance SELF PAY NO INSURANCE Member Subscriber Plan / Payer (Ef fective for All Dates) Name:Mirian Washburn Member ID:Not on file Relation to Subscriber:Self Name:IMRIAN WASHBURN Subscriber ID:Not on file Payer ID:Not on file Group ID:Not on file Type:Self Pay Address: [facility] [employer] * Guarantor: MIRIAN WASHBURN Account Type Relation to Patient Date of Phone Billing Address Personal/Family [address] [phone] [facility] SELF PAY NO INSURANCE Member Subscriber Plan / Payer (Ef fective for All Dates) Name:Mirian Washburn S Member ID:Not on file Relation to Subscriber:Not on file Name:MIRIAN WASHBURN Subscriber ID:Not on file (Home) Address: [address] [place] [address] Payer ID:Not on file Group ID:Not on file Type:Self Pay Address: [facility] * Guarantor: MIRIAN WASHBURN Account Type Relation to Patient Date of Phone Billing Address Personal/Family [address] [phone] [facility] SELF PAY NO INSURANCE Member Subscriber Plan / Payer (Ef fective for All Dates) Name:Mirian Washburn S Member ID:Not on file Relation to Subscriber:Not on file Name:MIRIAN WASHBURN Subscriber ID:Not on file (Home) Address: [address] [address] Payer ID:Not on file Group ID:Not on file Type:Self Pay Address: [place], [place] * Guarantor: MIRIAN WASHBURN Account Type Relation to Patient Date of Phone Billing Address Personal/Family [address] [place] [address] [place] [address] CARE SELF PAY NO INSURANCE Member Subscriber Plan / Payer (Ef fective for All Dates) Name:iMrian Washburn S Member ID:Not on file Relation to Subscriber:Not on file Name:MIRIAN WASHBURN Subscriber ID:Not on file (Home) Address: [address] [place] [address] Payer ID:Not on file Group ID:Not on file Type:Self Pay Address: [place], [place] Care Teams Admiralty Lawyer Relationship Specialty Start Date End Date Seth Alanis MD [address] [place] [phone] PCP - General Family Medicine 10/29/23
--- OUTSIDE RECORDS SUMMARY | 2025-05-13 02:16 | XMS_ITS | Referral Summary ---
Author Organization [facility] Address [address] [place] [address] Care Team Providers Care Email Producer Name Role Phone Gurwinder Urena MD Primary Care Provider + Kodak Amato MD Unavailable [phone]- [phone] Allergies Active Allergy Reactions Criticality Noted Date [...] 12/17/2017 Assessment & Plan (12/17/2017 5:25 PM MANAGER ELECTRICAL): BMI Follow-up includes: education provided. Pain in [...] on file Legal Sex Female 12:09 PM MANAGER ELECTRICAL Gender Identity Female 12/05/2021 11:01 AM MANAGER ELECTRICAL Sexual Orientation Straight 12/05/2021 11 :01 AM MANAGER ELECTRICAL Occupation Industry Job Start Date Job End [...] on file Medical Devices Implanted Type Area Sales Administrator Device Identifier Shelf Expiration Date Model / Serial / Lot [employer] Porp Geronimo Prosthesis Ossicular 655 - [id number] Implanted:Qty: 1 on 08/24/2022 by Juan Ramon Cotto MD at [facility] [place] Right: Ear [employer] [id number] 03/25/2027 655 / / [id number] Procedures Procedure Name Priority Date/Time Associated Diagnosis [...] Most Recently Relevant to Health Maintenance Insurance [facility] CHO[facility] PLUS [facility] PLUS [facility] PLUS Care Teams Email Producer Relationship Specialty Start Date End Date Gurwinder Urena MD [address] [address] PCP - General 02/22/17 Kodak Amato MD [address] [address] [place] [address] Referring Physician Otolaryngology 01/08/23
--- OUTSIDE RECORDS SUMMARY | 2025-05-13 02:16 | XMS_ITS | Patient Health Record ---
Author Organization [facility] Address [address] [place] [address] Support Name Relationship Address Phone Mirian Washburn Guarantor Unknown [phone] Reason For Referral No Information Problems Problem Type SNOMED Code ICD Code Onset Dates Problem Status W/U Status Risk Notes Problem Arthralgia of the ankle and/or foot (479720492) Pain in right ankle and joints of right foot (M25.571) 6 Active confirmed Problem Sprain of right ankle (72686186714944 105) Sprain of unspecified ligament of right ankle, subsequent encounter (S93.401D) 6 Active confirmed Plan Of Treatment No Information Insurance Providers Payer Name Payer Address Payer Phone Subscriber Number Group Number Insured Name Patient Relationship to Insured Coverage Start Date Coverage End Date [place] [facility] [address] [address] [place] [address] [id number] Mirian Washburn Self - patient is the insured 6
--- NOTE | 2025-05-13 03:32 | WPDHPUPDATE1 ---
History and Physical Update Update Date/Time: 05/13/25 03:32 History and Physical has been reviewed, including an updated exam of the patient. There are NO changes in the patient's condition. Risks, benefits, and alternatives have been discussed and questions answered. Patient agrees to proceed with procedure.
[2025-05-13] MEDS: LACTATED RINGERS 1,000 ML 30 ML IV CONT ×2 (07:45→11:47)
[2025-05-13] MEDS: KETOROLAC 15 MG/ML VIAL (*BKC) IV PUSH (07:45)
[2025-05-13] MEDS: ACETAMINOPHEN 500 MG TABLET 1000 MG PO ×2 (07:45→15:38)
[2025-05-13] MEDS: SCOPOLAMINE 1 MG PATCH 1 PATCH TRANSDERM (07:45)
--- NOTE | 2025-05-13 07:54 | WPDANESEPPF ---
Anes - Initial Pre Proc Eval Procedure: Operation Date: 05/13/25 08:30 Proposed Procedures p Laparoscopic Unilateral Ovarian Cystectomy - Ravi Hyatt MD s Repair of Vaginal Tear - Ravi Hyatt MD Date/Time: 05/13/25 07:54 Surgeon: Ravi Hyatt MD Pre Op Diagnosis: Ovarian Cyst -unknown side Patient Data Age: 44 Gender: F Height: 1.68 m Weight: 105.5 kg Allergies Allergy/AdvReac Type Severity Reaction Status Date / Time lopez pepper Allergy Intermediate Hives Verified 05/10/25 13:39 corn Allergy Intermediate Abdominal Verified 05/10/25 13:39 Pain pregabalin Allergy Mild Hives Verified 05/10/25 13:39 adhesive tape Allergy Unknown Verified 05/10/25 13:39 Home Medications ?Medication ?Instructions ?Recorded ?Confirmed ?Type cetirizine 10 mg tablet (Zyrtec) 10 mg PO HS PRN Allergic Symptoms 09/19/23 05/10/25 History Adult One Daily Multivitamin 1 tablet BYMOUTH DAILY 03/18/24 05/10/25 History vitamins A,C,U-sfdh-eishwy 4,296 1 cap PO QAM AND QPM 03/18/24 05/10/25 History mcg-226 mg-90 mg capsule (PreserVision AREDS) nifedipine 90 mg tablet,extended See Rx Instructions .Route 06/22/24 05/10/25 Rx release 24 hr .COMPLEX #90 tabs lisinopril 10 mg tablet See Rx Instructions .Route 07/28/24 05/10/25 Rx .COMPLEX #90 tabs cholecalciferol (vitamin D3) 25 25 mcg PO BID 02/17/25 05/10/25 History mcg (1,000 unit) tablet cephalexin 500 mg capsule 500 mg PO Q12H #14 caps 05/13/25 Rx hydrocodone 5 mg-acetaminophen 325 1 tablet PO Q4H PRN pain #20 tabs 05/13/25 Rx mg tablet Patient hx anesthesia problems: post op nausea/vomiting Family hx anesthesia problems: none Results Review: All pre-operative results and documents have been reviewed as part of the pre-operative evaluation. [facility] Past Medical History Medical History Hypertension PONV (postoperative nausea and vomiting) Fibroid Family History Family History Mother Cancer Hypertension Father Alcoholism Grandparent Cancer Hypertension Social History Social History Smoking status: Never smoker Second hand tobacco smoke exposure: Yes (occassional) Alcohol intake: current Drinks per week: 0 Alcohol use details: x1 month occassionally Substance use: never Substance use type: does not use Living arrangements: with family Spiritual care concerns: No Anes - Eval Final PreProcedure Day of Procedure 05/13/25 07:54 Patient weight: obese Heart: regular rate and rhythm Lungs: clear to auscultation Airway: Mallampati scale class II Neurological: alert and oriented Last oral intake: >/= 8 hours ASA classification: III Emergent: no Anesthetic plan: proceed Anesthesia type and monitoring: general ETT and standard monitoring Results Review: All pre-operative results and documents have been reviewed as part of the pre-operative evaluation. Informed Consent: The patient's anesthetic plan and its attendant risks and benefits were discussed with the patient/family/POA. Questions were solicited and answers provided to the satisfaction of the patient/family/POA.
[2025-05-13] MEDS: ceFAZolin SODIUM 1 GM VIAL 2 GM IV PUSH (09:54)
--- NOTE | 2025-05-13 10:45 | S_PTH ---
PATIENT: Mirian Washburn LOC: [facility] U#:[id number] AGE/SX: 44/F ROOM: RE05/13/[address]: Ravi Hyatt MD : 1980 BED: DIS: 05/13/2025 SPEC #: [id number] RECD: 05/13/25 13:03 STATUS: HALLE REQ #: [id number] JOSEPH: 05/13/25 10:[address]: Ravi Bolton DEPT: [facility] Surgical RECD BY: Mercedes Hunter ENTERED: 05/13/25 13:03 SP TYPE: Surgical OTHR DR: Seth Alanis MD Tissues: A - Ovary Procedures: Hematoxylin and Eosin Stain Gross and Microscopic Level 4
--- NOTE | 2025-05-13 11:29 | P.OP_ITS ---
Procedure Note - Detailed Date of Procedure 05/13/25 Pre-op Diagnosis Ovarian Cyst -unknown side Post-op Diagnosis Same Procedure Performed Laparoscopic right oophorectomy. Dr. Hodge performed a hand assist lysis of adhesions closure. Surgeon Ravi Hyatt MD Anesthesia General Indications Is a 44 status post hysterectomy meds vaginal spotting and complex ovarian cyst. Findings Uterus was surgically absent. The ovaries bilaterally were adhesed in the cu l-de-sac to the vaginal cuff. All were multiple adhesions present as well. And the vaginal portion there was a small area that was adhesed at the top which accounted for the vaginal bleeding. Description of Procedure The patient was prepped draped in the normal sterile fashion placed in dorsal lithotomy position. Excellent general trach anesthesia sponge stick was placed vagina bladder drained clear the weighted speculum was removed the gloves were changed. A supraumbilical incision made Veress needle passed in the abdomen. Abdomen filled with CO2 gas to 15. The 5mm trocar advanced with the Optiview in no injury seen. Patient placed in Trendelenburg and left lateral quadrant incision made her previous incision multiple adhesions were seen and a right lower quadrant incision made and a 5mm trocar advanced under direct visualization assuring no injury. There were multiple adhesions and using sharp dissection this was brought down until the ovaries could be seen which were attached to the vaginal cuff point was not felt feasible to safely laparoscopically attempt to remove these ovaries and Dr. Hodge was consulted. Dr. Carmichael proceeded to place a GelPort with hand assist I was able to reach relieved the ovarian complex at the infundibulopelvic the exposing the cul-de-sac. This was then laparoscopically removed with the LigaSure. Adhesions were brought down cleared. Irrigation was undertaken and Surgiflo was placed at the base of this incision. Dr. Denis proceeded to close the GelPort and after laparoscopic ports were all closed blood loss was estimated 100cc. All sponge, needle, instrument counts were correct. There were no immediate complications a should be noted that after the case the vaginal cuff was visualized and appeared just 1 raw spot was unable to be placed with the suture button was cauterized and no bleeding was seen Estimated Blood Loss 100 Drains No Packing No Pathology Yes Complications No immediate complications Condition Stable Disposition PACU
--- NOTE | 2025-05-13 11:47 | PM.CNGS ---
Assessment and Plan Assessment and plan (1) Pelvic pain: Code(s): R10.2 - Pelvic and perineal pain Status: Acute Assessment and Plan: Large right ovarian cyst and smaller left ovarian cyst found at surgery but densely adherent to bowel bladder and each other in the deep pelvis. Also possibly adherent to the vagina. Will proceed with diagnostic laparoscopy and possible laparoscopic adhesiolysis as needed working with Dr. Gwen Hyatt. (2) Vaginal bleeding: Code(s): N93.9 - Abnormal uterine and vaginal bleeding, unspecified Status: Acute History of Present Illness Consult details Consult date: 05/13/25 Reason for consult: other (Pelvic adhesions) Requesting physician: Ravi Bolton MD Narrative: patient is a 44-year-old woman who underwent a hysterectomy about 6 months ago. She was having problems with pelvic pain and some persistent vaginal bleeding. She was found to have ovarian cyst. Dr. Hollis had taken her to surgery for diagnostic laparoscopy, right ovarian cystectomy. During the surgery, there was a large cyst of the right ovary and it was adherent to the urinary bladder and bowel. It was also extremely difficult to expose. I was asked to see the patient in the operating room in consultation for assistance and possibly adhesiolysis. Review of Systems Review of Systems: All systems reviewed & are unremarkable except as noted in HPI and below ( See history and physical) PMFSH Past Medical History Medical History Hypertension PONV (postoperative nausea and vomiting) Fibroid Family History Family History Mother Cancer Hypertension Father Alcoholism Grandparent Cancer Hypertension Social History Social History Smoking status: Never smoker Second hand tobacco smoke exposure: Yes (occassional) Alcohol intake: current Drinks per week: 0 Alcohol use details: x1 month occassionally Substance use: never Substance use type: does not use Living arrangements: with family Spiritual care concerns: No Meds Home Medications and Allergies Home Medications ?Medication ?Instructions ?Recorded ?Confirmed ?Type cetirizine 10 mg tablet (Zyrtec) 10 mg PO HS PRN Allergic Symptoms 09/19/23 05/10/25 History Adult One Daily Multivitamin 1 tablet BYMOUTH DAILY 03/18/24 05/10/25 History vitamins A,C,C-xtkk-mewody 4,296 1 cap PO QAM AND QPM 03/18/24 05/10/25 History mcg-226 mg-90 mg capsule (PreserVision AREDS) nifedipine 90 mg tablet,extended See Rx Instructions .Route 06/22/24 05/13/25 Rx release 24 hr .COMPLEX #90 tabs lisinopril 10 mg tablet See Rx Instructions .Route 07/28/24 05/10/25 Rx .COMPLEX #90 tabs cholecalciferol (vitamin D3) 25 25 mcg PO BID 02/17/25 05/10/25 History mcg (1,000 unit) tablet cephalexin 500 mg capsule 500 mg PO Q12H #14 caps 05/13/25 Rx hydrocodone 5 mg-acetaminophen 325 1 tablet PO Q4H PRN pain #20 tabs 05/13/25 Rx mg tablet Allergies Allergy/AdvReac Type Severity Reaction Status Date / Time lopez pepper Allergy Intermediate Hives Verified 05/13/25 08:30 corn Allergy Intermediate Abdominal Verified 05/13/25 08:30 Pain pregabalin Allergy Mild Hives Verified 05/13/25 08:30 adhesive tape Allergy Unknown Verified 05/13/25 08:30 Vital Signs Vital Signs - 24 hr 05/13/25 07:45 Temperature 37.5 C Pulse Rate 94 Respiratory Rate 14 Blood Pressure 161/85 H Pulse Oximetry 97 Oxygen Delivery Room Air Exam Narrative: patient asleep on the operating table. Exam deferred to the operative note. Results Labs Labs: All other labs normal.
--- NOTE | 2025-05-13 11:53 | W.PM.PROC2 ---
Procedure Note - Detailed Date of Procedure 05/13/25 Pre-op Diagnosis Pelvic pain, right ovarian cyst Post-op Diagnosis Same Procedure Performed hand access diagnostic laparoscopy and adhesiolysis Surgeon Óscar Hodge MD Biomedical Technician Ravi Hyatt MD Anesthesia General Indications Right ovarian cyst with dense adhesions, some with associated bowel. Findings dense adhesions to a large right ovarian cyst deep in the pelvis. Exposure very difficult in dissection bloody. Description of Procedure Patient was asleep on the operating table with laparoscopic instruments in place when I scrubbed in. Despite have an inpatient and as much Trendelenburg as we safely could use per Anesthesia, the pelvis was very difficult to expose due to small and large bowel tending to fall back into the pelvis. There was no significant bleeding at the time but once exposed, a large right ovarian cyst was noted. A right-sided 5 mm port was placed in addition to the 3 ports already in use. This helped but still we were unable to provide adequate retraction and exposure of the right ovarian cyst. Another port, 10 11 port, was then placed in the left mid abdomen. Using a King type laparoscopic clamp, this provided additional assistance in clearing the pelvis of colon and small bowel other than the distal sigmoid and rectum. None the less, keeping the intestine out of the pelvis was still not adequate to proceed with removal of the cyst. After discussion, I made a lower abdominal midline incision. Dissection was carried through the subcutaneous and through the midline fascia. The peritoneum was opened. The Paras wound guard was placed. A couple of Laparotomy sponges were placed in the abdomen. The GelPort was then placed. I placed a hand in the abdomen and using some of the instruments to retract as well as the sponges, I was able to get a better view of the right ovarian cyst. The cyst was stuck to some of the distal sigmoid. I removed this adhesion with gentle hand dissection. It was still very peritonealized, Meaning that it was stuck in the pelvis with no easy adhesions to start with to mobilize the cyst. We were contemplating converting to open surgery. Dr. Hollis used the hand access port. With some traction on the cyst and hand dissection, he was able to mobilize the cyst much more than had been done to this point. I then resumed using the hand access port. We were able to keep the bowel retracted out of the pelvis and I could expose the cyst adequately. Dr. Hollis then used the LigaSure and divided the various attachments to the cyst. This was bloodless. I then removed the cyst from the pelvis. It was sent off to pathology in formalin. I then reused the hand access and we suctioned and irrigated the pelvis. There was a bit a raw surface area over the dome of the urinary bladder. I placed some Surgiflo over this and held pressure with a laparotomy sponge. Re reviewing this area, all looked quite dry and acceptable. I then reviewed moved my hand from the abdomen and removed all of the laparotomy sponges we had used. Dr. Gwen Hyatt performed then a pelvic exam to review the condition of the patient's vagina. The Paras wound guard, GelPort, and all trocars were removed. I closed the hand access port. Bidirectional 0 PDS suture were used to close the midline fascia. The subcutaneous was closed with interrupted 3-0 Vicryl suture. Interrupted subcuticular 4-0 Vicryl skin stitches were placed followed by a running 4-0 Monocryl skin suture. The hand access port as well as all 5 trocar sites were then closed with running 4-0 Monocryl skin suture. The wounds were dressed with Exofin surgical adhesive. Patient was then awakened and taken to recovery in good condition. Sponge and needle counts were correct x2. Dr. Gwen Hyatt will be dictating the beginning of the operation and all of the components of the operation he performed. Estimated Blood Loss 100 Drains No Packing No Pathology Yes ( Right ovarian cyst with right ovary) Complications None Condition Stable Disposition PACU [facility] Billing Surgery - Charge Forward: Surgery Billing ( hand access diagnostic laparoscopy and adhesiolysis)
[2025-05-13] MEDS: fentaNYL CITRATE INJ (*CRX) 100 MCG/2 ML VIAL 25 MCG IV PUSH ×3 (12:20→13:00)
[2025-05-13] MEDS: DEXTROSE 5%/LACTATED RINGERS 1,000 ML 125 ML IV CONT (15:34)
[2025-05-13] MEDS: KETOROLAC 30 MG/ML VIAL (*BKC) IV PUSH (15:36)
[2025-05-13] MEDS: SIMETHICONE 80 MG TAB.CHEW PO (15:38)
[2025-05-13] MEDS: oxyCODONE HCL (*CRX) 5 MG TAB IR 10 MG PO (19:12)
--- NOTE | 2025-05-13 20:23 | PC.NURSE ---
This patient, Mirian Washburn, was received from PACU on 05/13/25 at 1423. Patient/family oriented to unit policies and routines
== END 2025-05-13 21:00 | disposition home or self-care (01) ==
LOC: ANHSURGERY 06:47 → ANHOB2 15:10
PROVIDERS: PCP Family Medicine; Visit Provider Obstetrics & Gynecology
PROC: (CPT 49320; principal; 2025-05-13 08:30)
PROC: (CPT 58661; 2025-05-13 08:30)
DX: N83.11 Corpus luteum cyst of right ovary (principal); N83.01 Follicular cyst of right ovary; I10 Essential (primary) hypertension; N73.6 Female pelvic peritoneal adhesions (postinfective); E66.9 Obesity, unspecified; Z68.38 Body mass index [BMI] 38.0-38.9, adult; Z79.891 Long term (current) use of opiate analgesic; Z98.890 Other specified postprocedural states; Z80.9 Family history of malignant neoplasm, unspecified
CPT/HCPCS: 58661; 88305; 99199; A9270; J0690; J1100; J1171; J1885; J2003; J2250; J2405; J2704; J3010; J7120; J7121

== ENCOUNTER 2025-08-27 07:18 | Outpatient (CLI) | payer OTHER, SELFPAY ==
[2025-08-27 07:56] LABS: Hematocrit 40.0 % (37.0-47.0); Hemoglobin 13.4 g/dL (12.0-15.0); Immature Granulocyte Percent A 0.8 % (0-0.5); Lymphocytes Absolute Auto 2.69 K/mm3 (0.9-3.2); Mean Corpuscular HGB Conc 33.5 g/dl (32-36); Mean Corpuscular Hemoglobin 26.9 pg (26-34); Mean Corpuscular Volume 80.3 fl (80-100); Nucleated Red Blood Cells Absolute Auto 0.000 K/mm3 (0.0-0.012); Nucleated Red Blood Cells Perc 0.0 % (0.0-0.2); Platelet Count Result 256 k/mm3 (150-375); Red Blood Count 4.98 M/mm3 (4.2-5.4); White Blood Count 9.6 K/mm3 (4.5-10.0)
[2025-08-27 08:21] LABS: Alanine Aminotransferase 34 U/L (6-35); Albumin Level 4.3 g/dL (3.5-5.1); Alkaline Phosphatase 75 U/L (38-126); Anion Gap 10 mmol/L (4-12); Aspartate Amino Transferase 40 U/L (14-36); Bilirubin,Total 0.7 mg/dL (0.2-1.3); Blood Urea Nitrogen 15 mg/dL (7-17); Calcium 8.7 mg/dL (8.4-10.2); Carbon Dioxide 25 mmol/L (22-30); Chloride 102 mmol/L (98-107); Cholesterol 204 mg/dL (0-200); Estimated Glomerular Filt Rate > 60; Glucose 103 mg/dL (65-110); HDL Direct 39 mg/dL; Potassium 4.0 mmol/L (3.4-5.0); Sodium 137 mmol/L (137-145); Total Protein 7.2 g/dL (6.3-8.2); Triglycerides 448 mg/dL (<150)
[2025-08-27 08:53] LABS: Free T4 Free Thyroxine 1.09 ng/dL (0.78-2.19)
[2025-08-27 08:58] LABS: Thyroid Stimulating Hormone 2.380 uIU/mL (0.465-4.680)
[2025-08-27 13:28] LABS: Total Triiodothyronine (T3) 1.19 NG/ML (0.82-1.58)
== END 2025-08-27 07:19 | disposition home or self-care (01) ==
LOC: ANHLAB 07:19
PROVIDERS: PCP Family Medicine; Visit Provider Family Medicine
DX: F41.9 Anxiety disorder, unspecified (principal); I10 Essential (primary) hypertension; E04.1 Nontoxic single thyroid nodule; E66.9 Obesity, unspecified; R74.01 Elevation of levels of liver transaminase levels; Z00.00 Encounter for general adult medical examination without abnormal findings
CPT/HCPCS: 36415; 80053; 80061; 82306; 84436; 84439; 84443; 84445; 84480; 85025; 86376

== ENCOUNTER 2025-11-04 11:12 | Observation (INO) | payer OTHER, SELFPAY ==
--- NOTE | ~2025-11-04 | CT_ITS ---
EXAM/PROCEDURE: CT abdomen pelvis w con HISTORY: RLQ pain COMPARISON: None available. TECHNIQUE: IV contrast enhanced CT of the abdomen and pelvis performed FINDINGS: The bowel gas pattern is nonobstructive with no free air or pneumatosis. Normal size appendix. In the lower pelvic region, complex fluid containing mass present with adjacent infiltrative changes appears multiloculated and may correspond to the left adnexal region. The mass measures 8.8 x 4.5 x 6.8 cm in the anteroposterior by transverse by cephalocaudal dimensions. There appear to be 2 loculated cystic of fluid containing components with the largest along the superior aspect measuring approximately 5 x 4 cm, image 131 series 3. A slightly smaller 4.5 cm loculated fluid or cystic appearing mass is present slightly lower and anterior on image 138 series 3. No bulky mesenteric or retroperitoneal lymphadenopathy. Small to moderate-sized bilateral extrarenal pelves present with early developing hydronephrosis not excluded. No hydroureter is present. No urolithiasis. The urinary bladder appears normal other than mild mass effect on the left superior aspect associated with the pelvic mass. Adrenal glands pancreas spleen stomach and liver appear normal. Patient appears to be status post hysterectomy and cholecystectomy. Lung bases clear. Heart size normal. Degenerative changes in the bones which are otherwise intact. IMPRESSION: 8.8 x 4.5 x 6.8 cm complex fluid accumulation or multiloculated cystic mass with adjacent infiltrative changes. Findings may represent infection/abscess. Malignant process is not excluded. Patient appears to be status post hysterectomy. Prominent extrarenal pelvis present in both kidneys, although abad y developing/mild bilateral hydronephrosis is not excluded. Reviewed, dictated and finalized at location A. CONSULTANT IMPRESSION: 8.8 x 4.5 x 6.8 cm complex fluid accumulation or multiloculated cystic mass wit h adjacent infiltrative changes. Findings may represent infection/abscess. Alia gnant process is not excluded. Patient appears to be status post hysterectomy. Prominent extrarenal pelvis present in both kidneys, although early developing/ mild bilateral hydronephrosis is not excluded.
[2025-11-04 11:13] VITALS: BP 188/105; PULSE 112; RESP 18; TEMP 36.8; O2SAT 99
--- NOTE | 2025-11-04 11:51 | PC.NURSE ---
blood sent to lab with JIC labels at this time, patient updated to plan of care, patient denied any questions or concerns at this time.
[2025-11-04 12:16] LABS: Hematocrit 43.2 % (37.0-47.0); Hemoglobin 14.8 g/dL (12.0-15.0); Immature Granulocyte Percent A 0.6 % (0-0.5); Lymphocytes Absolute Auto 3.30 K/mm3 (0.9-3.2); Mean Corpuscular HGB Conc 34.3 g/dl (32-36); Mean Corpuscular Hemoglobin 27.7 pg (26-34); Mean Corpuscular Volume 80.9 fl (80-100); Nucleated Red Blood Cells Absolute Auto 0.000 K/mm3 (0.0-0.012); Nucleated Red Blood Cells Perc 0.0 % (0.0-0.2); Platelet Count Result 306 k/mm3 (150-375); Red Blood Count 5.34 M/mm3 (4.2-5.4); White Blood Count 15.5 K/mm3 (4.5-10.0)
[2025-11-04] MEDS: ONDANSETRON INJ 4 MG/2 ML VIAL IV PUSH (12:16)
[2025-11-04] MEDS: SODIUM CHLORIDE 0.9% IV 1,000 ML 999 ML IV CONT (12:16)
[2025-11-04] MEDS: MORPHINE SULFATE (*CRX) 4 MG/ML INJ IV PUSH ×3 (12:17→23:35)
[2025-11-04 12:22] VITALS: BP 167/101; PULSE 97; RESP 18; O2SAT 98
[2025-11-04 12:25] LABS: Alanine Aminotransferase 38 U/L (6-35); Albumin Level 4.7 g/dL (3.5-5.1); Alkaline Phosphatase 94 U/L (38-126); Anion Gap 9 mmol/L (4-12); Aspartate Amino Transferase 35 U/L (14-36); Bilirubin,Total 0.8 mg/dL (0.2-1.3); Blood Urea Nitrogen 11 mg/dL (7-17); Calcium 9.6 mg/dL (8.4-10.2); Carbon Dioxide 23 mmol/L (22-30); Chloride 103 mmol/L (98-107); Estimated CRCL calculation 90 ml/min; Estimated Glomerular Filt Rate > 60; Glucose 111 mg/dL (65-110); Lipase 127 U/L (23-300); Potassium 4.0 mmol/L (3.4-5.0); Sodium 135 mmol/L (137-145); Total Protein 8.0 g/dL (6.3-8.2)
[2025-11-04 12:31] LABS: Add Urine Microscopic? YES; Appearance Urine Clear (Clear); Glucose Urine UA Negative (Negative); Leukocyte Esterase Ur Negative LEU/UL (Negative); Nitrate Urine Negative (Negative); Non Pathogenic Casts 0-2; Specific Grav Ur 1.022 (1.001-1.035)
[2025-11-04 12:32] LABS: INR 1.0; Partial Thromboplastin Time 25.7 Seconds (22.3-36.8); Prothrombin Time 12.9 Seconds (11.1-14.7)
--- NOTE | 2025-11-04 12:37 | PC.NURSE ---
patient to ct scan at this time
[2025-11-04 13:16] VITALS: BP 161/99; PULSE 100; RESP 18; O2SAT 96
--- NOTE | 2025-11-04 13:22 | ED.GENADULT ---
HPI - General Adult General Chief complaint: Abdominal Pain Stated complaint: Lower Abd pain-sent by for poss Appy Time Seen by Provider: 11/04/25 11:53 History of Present Illness HPI narrative: Patient is a 45-year-old female who presents ER with lower abdominal pain. Worsening over last 2 days. Has pressure like she needs to urinate or have a bowel movement. No dysuria. No fevers or chills or sweats. Previous history of right oophorectomy and bilateral salpingectomy as well as hysterectomy. She had a complicated course after the surgeries including a vaginal cuff infection and continuous bleeding. She also had adhesions in her abdomen that may be difficult to remove her ovary. No alleviating factors. Related Data Home Medications ?Medication ?Instructions ?Recorded ?Confirmed ?Last Taken ?Type cetirizine 10 mg tablet (Zyrtec) 10 mg PO HS PRN Allergic Symptoms 09/19/23 11/04/25 11/04/25 History Adult One Daily Multivitamin 1 tablet BYMOUTH DAILY 03/18/24 11/04/25 11/04/25 History vitamins A,C,L-eyso-qmsron 4,296 1 cap PO QAM AND QPM 03/18/24 11/04/25 11/04/25 History mcg-226 mg-90 mg capsule (PreserVision AREDS) cholecalciferol (vitamin D3) 25 25 mcg PO BID 02/17/25 11/04/25 11/04/25 History mcg (1,000 unit) tablet creatine monohydrate 1 gram 1 g PO DAILY 11/04/25 11/04/25 11/04/25 History chewable tablet docusate sodium 100 mg capsule 100 mg PO DAILY 11/04/25 11/04/25 11/04/25 History ezetimibe 10 mg tablet 10 mg PO DAILY 11/04/25 11/04/25 11/04/25 History magnesium citrate 100 mg capsule 200 mg PO DAILY 11/04/25 11/04/25 11/04/25 History omega-3 430 mg-dha 130 1 cap PO DAILY 11/04/25 11/04/25 11/04/25 History vh-zed-aoq-fish 650 mg capsule, delayed release ([place] MonoPure) progesterone micronized 100 mg 100 mg PO DAILY 12/11/25 12/11/25 12/10/25 History capsule rosuvastatin 5 mg tablet 5 mg PO DAILY 11/04/25 11/04/25 12 History vitamin K2 100 mcg capsule 100 mcg PO DAILY 11/04/25 11/04/25 11/04/25 History Allergies Allergy/AdvReac Type Severity Reaction Status Date / Time lopez pepper Allergy Intermediate Hives Verified 11/04/25 15:25 corn Allergy Intermediate Abdominal Verified 11/04/25 15:25 Pain pregabalin Allergy Mild Hives Verified 11/04/25 15:25 adhesive tape Allergy Unknown Verified 11/04/25 15:25 Review of Systems Review of Systems: All systems reviewed & are unremarkable except as noted in HPI and below Constitutional: Constitutional: Reports no additional constitutional complaints ENT: Reports system reviewed and no additional complaints, except as documented Cardiovascular: Cardiovascular: Reports no additional cardiovascular complaints Respiratory: Respiratory: Reports no additional respiratory complaints Genitourinary: Genitourinary: Reports no additional female genitourinary complaints [facility] Past Medical History Medical History (Updated 11/04/25 @ 19:08 by Carlos Fuchs MD) Gestational diabetes Inner ear hearing loss Hypertension PONV (postoperative nausea and vomiting) Fibroid Surgical History Surgical History (Updated 08/03/25 @ 09:13 by Che Trevino [facility]) History of gynecological procedure (04/17/24) fibroidectomy History of tonsillectomy Hx of cholecystectomy S/P right oophorectomy (05/13/25) H/O: hysterectomy (11/27/24) Family History Family History (Updated 11/04/25 @ 15:10 by Serenity Avila RN) Mother Cancer Hypertension Father Alcoholism Diabetes mellitus Heart disease Cerebrovascular accident Grandparent Cancer Hypertension Social History Social History Smoking status: Never smoker Second hand tobacco smoke exposure: Yes (occassional) Alcohol intake: current Drinks per week: 0 Alcohol use details: x1 month occassionally Substance use: never Substance use type: does not use Lack of Transportation: No Lack of Food: Never True Current Housing: I Have Housing Concerned About Future Housing: No Difficulty Paying Gas/Electric Bills: No Difficulty Paying for Meds: No Currently Unemployed: No Education: Master's Degree or Higher Difficulty w/ Childcare or Family Care: No Living arrangements: with family Additional living arrangements comments: Occupation/Education: occupation Additional occupation/education comments: teacher Gender identity (if verbalized by the patient): Female Sexual Orientation (if Verbalized by the Patient): Straight or Heterosexual Spiritual care concerns: No Exam Narrative: GENERAL: Well-appearing, obese, and in no acute distress. HEAD: Normocephalic, atraumatic. ENT:Mucous membranes moist. NECK: Supple. CHEST: Clear to auscultation. No respiratory distress. HEART: Regular rate and rhythm. Normal peripheral pulses. ABDOMEN: Soft, tender palpation with guarding in the right lower quadrant, radiating pain from palpation of the left lower quadrant and right upper quadrant, nondistended, normal active bowel sounds. EXTREMITIES: Normal range of motion. No edema. SKIN: Warm, dry, no rash. NEURO: Alert and oriented x3. PSYCH: Normal mood and affect. Course Course Emergency Course: Discussed lab and imaging results with patient. Dr. Gwen Hyatt with gynecology has accepted the patient for admission and would like her to be started on IV Zosyn. Likely a will require surgery as her white count starts to come down. Vital Signs Vital signs: Vital Signs Temperature 98.2 F 11/04/25 11:13 Pulse Rate 112 H 11/04/25 11:13 Respiratory Rate 18 11/04/25 11:13 Blood Pressure 188/105 H 11/04/25 11:13 Pulse Oximetry 99 11/04/25 11:13 Oxygen Delivery Room Air 11/04/25 11:13 Temperature 98.2 F 11/04/25 11:13 Pulse Rate 100 11/04/25 13:16 Respiratory Rate 18 11/04/25 13:16 Blood Pressure 161/99 H 11/04/25 13:16 Pulse Oximetry 96 11/04/25 13:16 Oxygen Delivery Room Air 11/04/25 15:28 MDM Differential Diagnosis Differential Diagnosis: Appendicitis, diverticulitis, sepsis, UTI, kidney stone, intra-abdominal abscess Lab Data [facility] Lab Attestation statement: I personally reviewed the patient's lab results. 11/04/25 11:49 11/04/25 11:49 Labs: Lab Results 11/04/25 11/04/25 Range/Units 11:49 12:23 WBC 15.5 H (4.5-10.0) K/mm3 RBC 5.34 (4.2-5.4) M/mm3 Hgb 14.8 (12.0-15.0) g/dL Hct 43.2 (37.0-47.0) % MCV 80.9 (80-100) fl MCH 27.7 (26-34) pg MCHC 34.3 (32-36) g/dl RDW 13.4 (11.5-14.5) % Plt Count 306 (150-375) k/mm3 MPV 10.4 (7.4-10.4) fl Immature Gran % (Auto) 0.6 H (0-0.5) % Neut % (Auto) 68.3 (45.5-73.1) % Lymph % (Auto) 21.2 (18.3-44.2) % [place] % (Auto) 8.4 (2.6-8.5) % Eos % (Auto) 1.0 (0-4.4) % Baso % (Auto) 0.5 (0.2-1.2) % Lymph # (Auto) 3.30 H (0.9-3.2) K/mm3 [place] # (Auto) 1.3 H (0.1-0.6) K/mm3 Eos # (Auto) 0.2 (0-0.3) K/mm3 Baso # (Auto) 0.1 (0.0-0.1) K/mm3 Abs Immat Gran (auto) 0.09 H (0.00-0.031) K/mm3 Absolute Neuts (auto) 10.6 H (1.3-6.7) K/mm3 Absolute Nucleated RBC 0.000 (0.0-0.012) K/mm3 Nucleated RBC % 0.0 (0.0-0.2) % PT 12.9 (11.1-14.7) Seconds INR 1.0 APTT 25.7 (22.3-36.8) Seconds Sodium 135 L (137-145) mmol/L Potassium 4.0 (3.4-5.0) mmol/L Chloride 103 (98-107) mmol/L Carbon Dioxide 23 (22-30) mmol/L Anion Gap 9 (4-12) mmol/L BUN 11 (7-17) mg/dL Creatinine 0.86 (0.7-1.0) mg/dL Estim Creat Clear Calc 90 ml/min Estimated GFR > 60 (59 - ) Glucose 111 H (65-110) mg/dL Calcium 9.6 (8.4-10.2) mg/dL Total Bilirubin 0.8 (0.2-1.3) mg/dL AST 35 (14-36) U/L ALT 38 H (6-35) U/L Alkaline Phosphatase 94 (38-126) U/L Total Protein 8.0 (6.3-8.2) g/dL Albumin 4.7 (3.5-5.1) g/dL Lipase 127 (23-300) U/L Urine Color Yellow (Yellow) Urine Appearance Clear (Clear) Urine pH 7.0 (5.0-9.0) Ur Specific [place] 1.022 (1.001-1.035) Urine Protein 1+ H (Negative) mg/dL Urine Glucose (UA) Negative (Negative) mg/dL Urine Ketones Negative (Negative) mg/dL Ur Blood (Man) Negative (Negative) Urine Nitrate Negative (Negative) Urine Bilirubin Negative (Negative) Urine Urobilinogen 0.2 (<2.0) mg/dL Leukocyte Esterase Rfl Negative (Negative) KWAKU/UL Urine RBC 0-2 (0-2) /hpf Urine WBC 0-5 (0-3) /hpf Ur Squamous Epith Cells None seen (Few) /hpf Urine Bacteria Rare /hpf Urine Casts 0-2 Imaging Data Radiologist's impression: ITS Impressions Abdomen/Pelvis CT 11/04/25 12:49 IMPRESSION: 8.8 x 4.5 x 6.8 cm complex fluid accumulation or multiloculated cystic mass with adjacent infiltrative changes. Findings may represent infection/abscess. Malignant process is not excluded. Patient appears to be status post hysterectomy. Prominent extrarenal pelvis present in both kidneys, although early developing/mild bilateral hydronephrosis is not excluded. Discharge Plan Discharge Clinical Impression: Abscess of female pelvis Patient Disposition: Still a Patient Condition: Stable
--- NOTE | 2025-11-04 13:34 | PC.NURSE ---
patient anxious and crying requested anxiety medications from MD. waiting on orders at this time. Explained to the patient that more blood work could wait until she's feeling a little bit more calm.
[2025-11-04] MEDS: diazePAM INJ (*CRX) 10 MG/2 ML SYRINGE 5 MG IV PUSH (13:45)
[2025-11-04] MEDS: PIPERACILLIN/TAZOBACTAM SOD 3.375 GM in SODIUM CHLORIDE 0.9% IV 50 ML 100 ML IVPB ×2 (14:06→17:29)
--- NOTE | 2025-11-04 14:14 | WPCEDHO ---
ED Hand Off Checklist All vitals saved: YES IV Site documented: YES All med administrations documented: YES Triage Note Triage Note Patient to the ED with complaints 11/04/25 11:46 of lower abdominal pain that began last night. Patient complains of urinary urgency as well. patient states she was seen at this morning and had a UA, but states the UA was clear. Patient states they sent her to R /O appy or bowel infection. agree with triage note Allergies lopez pepper Allergy (Intermediate, Verified 11/04/25 11:13) Hives corn Allergy (Intermediate, Verified 11/04/25 11:13) Abdominal Pain pregabalin Allergy (Mild, Verified 11/04/25 11:13) Hives nausea as well adhesive tape Allergy (Verified 11/04/25 11:13) Unknown patient stated it pulls off her skin Family History (Last Reviewed 08/03/25 @ 09:07 by Che Trevino [facility]) Mother Cancer Hypertension Father Alcoholism Grandparent Cancer Hypertension Administered/Completed Medications Discontinued Medications Diazepam (Diazepam Inj (*Crx) 10 Mg/2 Ml Syringe) 5 mg IV PUSH ONCE ONE Stop: 11/04/25 13:35 Last Admin: 11/04/25 13:45 Dose: 5 mg Documented By: FREDERIC Sodium Chloride (Normal Saline Iv) 1,000 mls @ 999 mls/hr IV CONT .Q1H1M STA Stop: 11/04/25 13:04 Last Infusion: 11/04/25 14:03 Dose: Infused Documented By: Admin: 11/04/25 12:16 Dose: 999 mls/hr Documented By: FREDERIC Piperacillin Sod/Tazobactam (Sod 3.375 gm/ Sodium Chloride) 50 mls @ 100 mls/hr IVPB ONCE STA Stop: 11/04/25 13:43 Last Admin: 11/04/25 14:06 Dose: 100 mls/hr Documented By: FREDERIC Morphine Sulfate (Morphine Sulfate (*Crx) 4 Mg/Ml Inj) 4 mg IV PUSH ONCE STA Stop: 11/04/25 12:05 Last Admin: 11/04/25 12:17 Dose: 4 mg Documented By: FREDERIC Ondansetron HCl (Ondansetron Inj 4 Mg/2 Ml Vial) 4 mg IV PUSH ONCE STA Stop: 11/04/25 12:05 Last Admin: 11/04/25 12:16 Dose: 4 mg Documented By: FREDERIC Notes 11/04/25 13:34 Nurse Note by Gaby Rose. patient anxious and crying requested anxiety medications from MD. waiting on orders at this time. Explained to the patient that more blood work could wait until she's feeling a little bit more calm. Initialized on 11/04/25 13:34 - END OF NOTE 11/04/25 12:37 Nurse Note by Gaby Rose. patient to ct scan at this time Initialized on 11/04/25 12:37 - END OF NOTE 11/04/25 11:51 Nurse Note by Gaby Rose. blood sent to lab with JIC labels at this time, patient updated to plan of care, patient denied any questions or concerns at this time. Initialized on 11/04/25 11:51 - END OF NOTE Interventions/Assessments IV / Saline Lock, Insert Start: 11/04/25 11:12 Freq: Status: Active Protocol: Document 11/04/25 11:45 FREDERIC (Rec: 11/04/25 11:46 FREDERIC [id number]) IV Assessment Peripheral Access Left Antecubital IV Catheter Access Initiated IV Insertion Date 11/04/25 IV Insertion Time 11:46 Catheter Gauge 20 IV Site Assessment WNL IV Care and WNL Maintenance PA: Gastrointestinal Assessment Start: 11/04/25 11:12 Freq: Status: Active Protocol: Document 11/04/25 11:39 FREDERIC (Rec: 11/04/25 11:39 FREDERIC [id number]) GI Assessment Gastrointestinal Pain Symptoms Description Soft,Tender Pattern Normal Nausea/Vomiting Assessment Nausea Frequency None Emesis Frequency None Last Vital Signs Temperature 98.2 F 11/04/25 11:13 Pulse Rate 100 11/04/25 13:16 Respiratory Rate 18 11/04/25 13:16 Pulse Oximetry 96 11/04/25 13:16 Blood Pressure 161/99 H 11/04/25 13:16 Blood Pressure Mean 119 11/04/25 13:16 Oxygen Delivery Room Air 11/04/25 11:13 Weight 110.3 kg 11/04/25 11:46 Last Result - Abnormals Only WBC 15.5 K/mm3 (4.5-10.0) H 11/04/25 11:49 Immature Gran % (Auto) 0.6 % (0-0.5) H 11/04/25 11:49 Lymph # (Auto) 3.30 K/mm3 (0.9-3.2) H 11/04/25 11:49 [place] # (Auto) 1.3 K/mm3 (0.1-0.6) H 11/04/25 11:49 Abs Immat Gran (auto) 0.09 K/mm3 (0.00-0.031) H 11/04/25 11:49 Absolute Neuts (auto) 10.6 K/mm3 (1.3-6.7) H 11/04/25 11:49 Sodium 135 mmol/L (137-145) L 11/04/25 11:49 Glucose 111 mg/dL (65-110) H 11/04/25 11:49 ALT 38 U/L (6-35) H 11/04/25 11:49 Urine Protein 1+ mg/dL (Negative) H 11/04/25 12:23 Most Recent Suicide Severity Rating Suicide Severity Rating NO RISK INDICATED 11/04/25 11:46
[2025-11-04 14:16] VITALS: BMI 39.2
--- NOTE | 2025-11-04 15:07 | ADMGEN ---
This patient, Mirian Washburn, was admitted to [facility] Surg Room 330-01. Patient/family oriented to hospital policies and general routines including ID bracelet, bed and alarms, visiting hours, pain management, procedures, bathroom and other care routines, personal items, smoking policy, room service/diet, and visiting hours. Information on how to activate the Rapid Response Team has been discussed. Patient/Family are encouraged to report perceived risks to care and to ask questions if they do not understand what they are told or what they should do.
[2025-11-04] MEDS: SODIUM CHLORIDE 0.9% IV 1,000 ML 125 ML IV CONT (15:53)
[2025-11-04 20:23] VITALS: BP 153/77; PULSE 99; RESP 18; TEMP 36.3; O2SAT 98
[2025-11-05] MEDS: LORATADINE 10 MG TABLET PO (00:04)
[2025-11-05] MEDS: CALCIUM CARBONATE (TUMS) 500 MG (200 MG ELEMENTAL) 400 MG PO (00:04)
[2025-11-05] MEDS: PIPERACILLIN/TAZOBACTAM SOD 3.375 GM in SODIUM CHLORIDE 0.9% IV 50 ML 100 ML IVPB ×2 (00:05→05:41)
[2025-11-05] MEDS: SODIUM CHLORIDE 0.9% IV 1,000 ML 125 ML IV CONT (00:08)
[2025-11-05 05:52] VITALS: BP 143/79; PULSE 103; RESP 16; TEMP 36.8; O2SAT 93
--- NOTE | 2025-11-05 06:59 | PM.IMHP2 ---
H&P: HPI History of Present Illness Date/Time: 11/05/25 06:59 Chief Complaint: Pelvic pain Narrative: This is a 45-year-old female status post robotic hysterectomy right salpingo-oophorectomy who is his admitted with a pelvic pain and a large left ovarian cyst. CT shows 8cm cystic lesion the could be an abscess but appears to be an ovary to me. She has a mildly elevated white count. Appetite has been good and she is has no complaints of urination or bowel movement changes. Review of Systems Review of Systems: All systems reviewed & are unremarkable except as noted in HPI and below Constitutional: Constitutional: Reports no additional constitutional complaints ENT: Reports system reviewed and no additional complaints, except as documented Cardiovascular: Cardiovascular: Reports no additional cardiovascular complaints Respiratory: Respiratory: Reports no additional respiratory complaints Genitourinary: Genitourinary: Reports no additional female genitourinary complaints [facility] Past Medical History Medical History Gestational diabetes Inner ear hearing loss Hypertension PONV (postoperative nausea and vomiting) Fibroid Surgical History Surgical History History of gynecological procedure (04/17/24) fibroidectomy History of tonsillectomy Hx of cholecystectomy S/P right oophorectomy (05/13/25) H/O: hysterectomy (11/27/24) Family History Family History Mother Cancer Hypertension Father Alcoholism Diabetes mellitus Heart disease Cerebrovascular accident Grandparent Cancer Hypertension Social History Social History Smoking status: Never smoker Second hand tobacco smoke exposure: Yes (occassional) Alcohol intake: current Drinks per week: 0 Alcohol use details: x1 month occassionally Substance use: never Substance use type: does not use Lack of Transportation: No Lack of Food: Never True Current Housing: I Have Housing Concerned About Future Housing: No Difficulty Paying Gas/Electric Bills: No Difficulty Paying for Meds: No Currently Unemployed: No Education: Master's Degree or Higher Difficulty w/ Childcare or Family Care: No Living arrangements: with family Additional living arrangements comments: Occupation/Education: occupation Additional occupation/education comments: teacher Gender identity (if verbalized by the patient): Female Sexual Orientation (if Verbalized by the Patient): Straight or Heterosexual Spiritual care concerns: No Meds Home Medications and Allergies Home Medications ?Medication ?Instructions ?Recorded ?Confirmed ?Type cetirizine 10 mg tablet (Zyrtec) 10 mg PO HS PRN Allergic Symptoms 09/19/23 11/04/25 History Adult One Daily Multivitamin 1 tablet BYMOUTH DAILY 03/18/24 11/04/25 History vitamins A,C,S-eykv-ysnvqf 4,296 1 cap PO QAM AND QPM 03/18/24 11/04/25 History mcg-226 mg-90 mg capsule (PreserVision AREDS) cholecalciferol (vitamin D3) 25 25 mcg PO BID 02/17/25 11/04/25 History mcg (1,000 unit) tablet nifedipine 90 mg tablet,extended See Rx Instructions .Route 06/16/25 11/04/25 Rx release 24 hr .COMPLEX #90 tabs lisinopril 10 mg tablet See Rx Instructions .Route 07/21/25 11/04/25 Rx .COMPLEX #90 tabs creatine monohydrate 1 gram 1 g PO DAILY 11/04/25 11/04/25 History chewable tablet docusate sodium 100 mg capsule 100 mg PO DAILY 11/04/25 11/04/25 History ezetimibe 10 mg tablet 10 mg PO DAILY 11/04/25 11/04/25 History magnesium citrate 100 mg capsule 200 mg PO DAILY 11/04/25 11/04/25 History omega-3 430 mg-dha 130 1 cap PO DAILY 11/04/25 11/04/25 History lo-aft-aqa-fish 650 mg capsule, delayed release ([place] MonoPure) progesterone micronized 100 mg 100 mg PO DAILY 11/04/25 11/04/25 History capsule rosuvastatin 5 mg tablet 5 mg PO DAILY 11/04/25 11/04/25 History vitamin K2 100 mcg capsule 100 mcg PO DAILY 11/04/25 11/04/25 History Allergies Allergy/AdvReac Type Severity Reaction Status Date / Time lopez pepper Allergy Intermediate Hives Verified 11/04/25 15:25 corn Allergy Intermediate Abdominal Verified 11/04/25 15:25 Pain pregabalin Allergy Mild Hives Verified 11/04/25 15:25 adhesive tape Allergy Unknown Verified 11/04/25 15:25 Vital Signs Vital Signs - 24 hr 11/04/25 11:13 11/04/25 12:22 11/04/25 13:16 Temperature 98.2 F Pulse Rate 112 H 97 100 Respiratory Rate 18 18 18 Blood Pressure 188/105 H 167/101 H 161/99 H Pulse Oximetry 99 98 96 Oxygen Delivery Room Air 11/04/25 15:28 11/04/25 20:00 11/04/25 20:23 Temperature 97.3 F L Pulse Rate 99 Respiratory Rate 18 Blood Pressure 153/77 H Pulse Oximetry 98 Oxygen Delivery Room Air Room Air 11/05/25 05:52 Temperature 98.2 F Pulse Rate 103 H Respiratory Rate 16 Blood Pressure 143/79 H Pulse Oximetry 93 Oxygen Delivery Exam Const: General: cooperative, healthy appearing and comfortable Nutritional Appearance: average body habitus Orientation/consciousness: oriented to person, oriented to place and oriented to time HENMT: Head: normal to inspection Resp: Effort & Inspection: normal respiratory effort Cardio: Rate: regular rate Rhythm: regular rhythm Heart sounds: S1 normal heart sound present and S2 normal heart sound present GI: Inspection: normal to inspection Results Labs Labs: Short CBC 11/04/25 Range/Units 11:49 WBC 15.5 H (4.5-10.0) K/mm3 Hgb 14.8 (12.0-15.0) g/dL Hct 43.2 (37.0-47.0) % Plt Count 306 (150-375) k/mm3 BMP 11/04/25 11:49 Sodium 135 L Potassium 4.0 Chloride 103 Carbon Dioxide 23 BUN 11 Creatinine 0.86 Glucose 111 H Calcium 9.6 Liver Function 11/04/25 Range/Units 11:49 Total Bilirubin 0.8 (0.2-1.3) mg/dL AST 35 (14-36) U/L ALT 38 H (6-35) U/L Alkaline Phosphatase 94 (38-126) U/L Albumin 4.7 (3.5-5.1) g/dL Urine 11/04/25 Range/Units 12:23 Urine Color Yellow (Yellow) Urine Appearance Clear (Clear) Urine pH 7.0 (5.0-9.0) Ur Specific [place] 1.022 (1.001-1.035) Urine Protein 1+ H (Negative) mg/dL Urine Glucose (UA) Negative (Negative) mg/dL Assessment and Plan Assessment and plan (1) Pelvic pain: Code(s): R10.2 - Pelvic and perineal pain Status: Acute (2) Abscess of female pelvis: Code(s): N73.9 - Female pelvic inflammatory disease, unspecified Status: Acute (3) S/P right oophorectomy: Onset Date: 05/13/25 Code(s): Z90.721 - Acquired absence of ovaries, unilateral Status: Acute Plan Patient is treated with IV antibiotics and will be sent home on oral antibiotics with plans for left cystectomy possible left oophorectomy next week
--- NOTE | 2025-11-05 07:01 | P.DS_ITS ---
DS: Admitting Diagnosis Discharge Date 11/05/2025 Admitting Diagnosis Pelvic pain left ovarian abscess DS: Discharge Diagnosis Discharge Diagnosis (1) Pelvic pain: Code(s): R10.2 - Pelvic and perineal pain Status: Acute (2) Abscess of female pelvis: Code(s): N73.9 - Female pelvic inflammatory disease, unspecified Status: Acute DS: Summary Hospital Course Reason for hospitalization: Patient was admitted for IV antibiotics secondary to what appeared to be a possible abscess versus left ovarian cyst. Hospital Course: Patient remained afebrile. She was up, voiding without difficulty, eating regular diet, ambulating generally without complaints. Time Spent with Patient Time attestation: Total time spent providing and/or coordinating discharge services: Exam Const: General: cooperative, healthy appearing and comfortable Nutritional Appearance: average body habitus Orientation/consciousness: oriented to person, oriented to place and oriented to time HENMT: Head: normal to inspection Resp: Effort & Inspection: normal respiratory effort Cardio: Rate: regular rate Rhythm: regular rhythm Heart sounds: S1 normal heart sound present and S2 normal heart sound present GI: Inspection: normal to inspection DS: Data Data Completed and Pending Labs on day of discharge: Labs from last 24 hours 11/04/25 11/04/25 11/04/25 13:56 12:23 11:49 WBC 15.5 H RBC 5.34 Hgb 14.8 Hct 43.2 MCV 80.9 MCH 27.7 MCHC 34.3 RDW 13.4 Plt Count 306 MPV 10.4 Immature Gran % (Auto) 0.6 H Neut % (Auto) 68.3 Lymph % (Auto) 21.2 [place] % (Auto) 8.4 Eos % (Auto) 1.0 Baso % (Auto) 0.5 Lymph # (Auto) 3.[address] [place] # (Auto) 1.3 H Eos # (Auto) 0.2 Baso # (Auto) 0.1 Abs Immat Gran (auto) 0.09 H Absolute Neuts (auto) 10.6 H Absolute Nucleated RBC 0.000 Nucleated RBC % 0.0 PT 12.9 INR 1.0 APTT 25.7 Sodium 135 L Potassium 4.0 Chloride 103 Carbon Dioxide 23 Anion Gap 9 BUN 11 Creatinine 0.86 Estim Creat Clear Calc 90 Estimated GFR > 60 Glucose 111 H Lactic Acid 1.1 Calcium 9.6 Total Bilirubin 0.8 AST 35 ALT 38 H Alkaline Phosphatase 94 Total Protein 8.0 Albumin 4.7 Lipase 127 Urine Color Yellow Urine Appearance Clear Urine pH 7.0 Ur Specific Willard 1.022 Urine Protein 1+ H Urine Glucose (UA) Negative Urine Ketones Negative Ur Blood (Man) Negative Urine Nitrate Negative Urine Bilirubin Negative Urine Urobilinogen 0.2 Leukocyte Esterase Rfl Negative Urine RBC 0-2 Urine WBC 0-5 Ur Squamous Epith Cells None seen Urine Bacteria Rare Urine Casts 0-2 Discharge Plan Discharge Attending physician on discharge: Ravi Bolton Discharging Clinician: Ravi Bolton Patient Disposition: Home Activity: march shower and pelvic rest Diet: heart healthy Wound Care Instructions: follow printed instructions Patient Instructions: Antibiotic Form Patient Language: Wallisian Stand Alone Forms: General Discharge Information Follow-up/Referrals: Ravi Bolton MD [Physician, GEOTHERMAL PRODUCTION MANAGER] Discharge Medications: New hydrocodone-acetaminophen 5-325 mg tablet 1 tablet PO Q6H PRN (Reason: pain) Qty: 14 0RF cephalexin 500 mg capsule 500 mg PO Q8H Qty: 20 0RF metronidazole 500 mg tablet 500 mg PO Q8H Qty: 20 0RF Continued cetirizine [Zyrtec] 10 mg tablet 10 mg PO HS PRN (Reason: Allergic Symptoms) cholecalciferol (vitamin D3) 25 mcg (1,000 unit) tablet 25 mcg PO BID Patient Comments: Takes 2 in am and 3 at HS Rx Instructions: 2 in the morning and 2 in the evening Takes 2 in am and 3 at HS Adult One Daily Multivitamin 1 tablet BYMOUTH DAILY Patient Comments: Says takes twice a day. PreserVision AREDS 4,296 mcg-226 mg-90 mg Capsule 1 cap PO QAM AND QPM progesterone micronized 100 mg capsule 100 mg PO DAILY ezetimibe 10 mg tablet 10 mg PO DAILY rosuvastatin 5 mg tablet 5 mg PO DAILY magnesium citrate 100 mg capsule 200 mg PO DAILY creatine monohydrate 1 gram tablet,chewable 1 g PO DAILY vitamin K2 100 mcg capsule 100 mcg PO DAILY [place] MonoPure 430-130-650 mg capsule,delayed release(DR/EC) 1 cap PO DAILY docusate sodium 100 mg capsule 100 mg PO DAILY nifedipine 90 mg tablet extended release 24hr See Rx Instructions .ROUTE .COMPLEX Qty: 90 3RF Dose Instruction: TAKE 1 TABLET DAILY Rx Instructions: TAKE 1 TABLET DAILY lisinopril 10 mg tablet See Rx Instructions .ROUTE .COMPLEX Qty: 90 1RF Dose Instruction: TAKE 1 TABLET DAILY Rx Instructions: TAKE 1 TABLET DAILY Date of admission: 11/04/25 13:23 Primary Care Provider: Seth Alanis Admitting Provider: Ravi Bolton Attending physician on admission: Ravi Bolton Condition: Stable
[2025-11-05] MEDS: HYDROcodone/acetaminophen (*CRX) 5-325 MG TABLET 1 TAB PO (08:16)
[2025-11-05 08:39] LABS: Hematocrit 36.7 % (37.0-47.0); Hemoglobin 12.3 g/dL (12.0-15.0); Immature Granulocyte Percent A 0.5 % (0-0.5); Lymphocytes Absolute Auto 1.21 K/mm3 (0.9-3.2); Mean Corpuscular HGB Conc 33.5 g/dl (32-36); Mean Corpuscular Hemoglobin 27.7 pg (26-34); Mean Corpuscular Volume 82.7 fl (80-100); Nucleated Red Blood Cells Absolute Auto 0.000 K/mm3 (0.0-0.012); Nucleated Red Blood Cells Perc 0.0 % (0.0-0.2); Platelet Count Result 200 k/mm3 (150-375); Red Blood Count 4.44 M/mm3 (4.2-5.4); White Blood Count 8.7 K/mm3 (4.5-10.0)
== END 2025-11-05 10:52 | disposition home or self-care (01) ==
LOC: ANHED 12:25 → ANH3MEDSUR 14:05
PROVIDERS: Admitting Provider Obstetrics & Gynecology; Emergency Provider Emergency Medicine; PCP Family Medicine; Visit Provider Obstetrics & Gynecology
DX: N73.9 Female pelvic inflammatory disease, unspecified (principal); N83.202 Unspecified ovarian cyst, left side; R10.20 Pelvic and perineal pain unspecified side; Z90.721 Acquired absence of ovaries, unilateral; I10 Essential (primary) hypertension
CPT/HCPCS: 36415; 74177; 80053; 81001; 83605; 83690; 85025; 85610; 85730; 87040; 96361; 96374; 96375; 96376; 99285; A9270; J2270; J2405; J2543; J3360; J7030; Q9967

== ENCOUNTER 2025-11-12 01:15 | Day surgery (SDC) | payer OTHER, SELFPAY ==
--- NOTE | 2025-11-09 07:31 | PM.IMHP2 ---
H&P: HPI History of Present Illness Date/Time: 11/09/25 07:31 Chief Complaint: Pelvic pain and left ovarian cyst Narrative: Is a 45-year-old female status post hysterectomy and right salpingo-oophorectomy admitted for laparoscopic left as this ovarian cystectomy and most likely left salpingo-oophorectomy. This patient has had a difficult time. She underwent hysterectomy which was followed by laparoscopy and lysis of adhesions. She did well and then complained of some pelvic pain. Imaging shows a large left ovarian cyst. She had at elevated white count and was treated with antibiotics for 7 days. Risks and benefits of the procedure reviewed full. She agrees to proceed Review of Systems Review of Systems: All systems reviewed & are unremarkable except as noted in HPI and below Constitutional: Constitutional: Reports no additional constitutional complaints ENT: Reports system reviewed and no additional complaints, except as documented Cardiovascular: Cardiovascular: Reports no additional cardiovascular complaints Respiratory: Respiratory: Reports no additional respiratory complaints Genitourinary: Genitourinary: Reports no additional female genitourinary complaints [facility] Past Medical History Medical History Gestational diabetes Inner ear hearing loss Hypertension PONV (postoperative nausea and vomiting) Fibroid Surgical History Surgical History History of gynecological procedure (04/17/24) fibroidectomy History of tonsillectomy Hx of cholecystectomy S/P right oophorectomy (05/13/25) H/O: hysterectomy (11/27/24) Family History Family History Mother Cancer Hypertension Father Alcoholism Diabetes mellitus Heart disease Cerebrovascular accident Grandparent Cancer Hypertension Social History Social History Smoking status: Never smoker Second hand tobacco smoke exposure: Yes (occassional) Alcohol intake: current Drinks per week: 0 Alcohol use details: x1 month occassionally Substance use: never Substance use type: does not use Lack of Transportation: No Lack of Food: Never True Current Housing: I Have Housing Concerned About Future Housing: No Difficulty Paying Gas/Electric Bills: No Difficulty Paying for Meds: No Currently Unemployed: No Education: Master's Degree or Higher Difficulty w/ Childcare or Family Care: No Living arrangements: with family Additional living arrangements comments: Occupation/Education: occupation Additional occupation/education comments: teacher Gender identity (if verbalized by the patient): Female Sexual Orientation (if Verbalized by the Patient): Straight or Heterosexual Spiritual care concerns: No Meds Home Medications and Allergies Home Medications ?Medication ?Instructions ?Recorded ?Confirmed ?Type cetirizine 10 mg tablet (Zyrtec) 10 mg PO HS PRN Allergic Symptoms 09/19/23 11/04/25 History Adult One Daily Multivitamin 1 tablet BYMOUTH DAILY 03/18/24 11/04/25 History vitamins A,C,T-pshi-fhpgbh 4,296 1 cap PO QAM AND QPM 03/18/24 11/04/25 History mcg-226 mg-90 mg capsule (PreserVision AREDS) cholecalciferol (vitamin D3) 25 25 mcg PO BID 02/17/25 11/04/25 History mcg (1,000 unit) tablet nifedipine 90 mg tablet,extended See Rx Instructions .Route 06/16/25 11/04/25 Rx release 24 hr .COMPLEX #90 tabs lisinopril 10 mg tablet See Rx Instructions .Route 07/21/25 11/04/25 Rx .COMPLEX #90 tabs creatine monohydrate 1 gram 1 g PO DAILY 11/04/25 11/04/25 History chewable tablet docusate sodium 100 mg capsule 100 mg PO DAILY 11/04/25 11/04/25 History ezetimibe 10 mg tablet 10 mg PO DAILY 11/04/25 11/04/25 History magnesium citrate 100 mg capsule 200 mg PO DAILY 11/04/25 11/04/25 History omega-3 430 mg-dha 130 1 cap PO DAILY 11/04/25 11/04/25 History nk-ijq-ylf-fish 650 mg capsule, delayed release ([place] MonoPure) progesterone micronized 100 mg 100 mg PO DAILY 11/04/25 11/04/25 History capsule rosuvastatin 5 mg tablet 5 mg PO DAILY 11/04/25 11/04/25 History vitamin K2 100 mcg capsule 100 mcg PO DAILY 11/04/25 11/04/25 History cephalexin 500 mg capsule 500 mg PO Q8H #20 caps 11/05/25 Rx hydrocodone 5 mg-acetaminophen 325 1 tablet PO Q6H PRN pain #14 tabs 11/05/25 Rx mg tablet metronidazole 500 mg tablet 500 mg PO Q8H #20 tabs 11/05/25 Rx Allergies Allergy/AdvReac Type Severity Reaction Status Date / Time lopez pepper Allergy Intermediate Hives Verified 11/04/25 15:25 corn Allergy Intermediate Abdominal Verified 11/04/25 15:25 Pain pregabalin Allergy Mild Hives Verified 11/04/25 15:25 adhesive tape Allergy Unknown Verified 11/04/25 15:25 Exam Const: General: cooperative, healthy appearing, comfortable, well groomed and overweight Orientation/consciousness: oriented to person, oriented to place and oriented to time Resp: Effort & Inspection: normal respiratory effort Cardio: Rate: regular rate Rhythm: regular rhythm Heart sounds: S1 normal heart sound present and S2 normal heart sound present GI: Inspection: normal to inspection : External Female Exam: normal external appearance Speculum Exam - Vagina: normal appearance of the vagina Speculum Exam - Cervix: Cervix absent Bimanual exam- vagina & uterus: uterus absent Bimanual Exam- Adnexa, other: tender bilaterally Assessment and Plan Assessment and plan (1) Pelvic pain: Code(s): R10.2 - Pelvic and perineal pain Status: Acute (2) Left ovarian cyst: Code(s): N83.202 - Unspecified ovarian cyst, left side Status: Acute Plan Proceed with laparoscopy and likely left oophorectomy
[2025-11-11 09:21] VITALS: BMI 39.1
--- NOTE | 2025-11-11 09:30 | PC.NURSE ---
[facility] has started construction of its new state of the art ER which will open Spring 2026. With this, we anticipate parking may be a challenge for some our surgical patients and families. Parking spaces are limited but are available for all Surgical, obstetrics, and ER patients sharing this lot. If you arrive and find you are having a hard time finding a parking space, please note that we understand the challenges, please drive around the hospital and park near Hospital Entrance 1. When you enter this entrance, you can ask a volunteer to direct or take you back to the surgical waiting area to check in. We appreciate everyone?s understanding of these expected challenges while we build for your future. Report to the Outpatient Waiting Room, entrance under the green pavilion located off [address], at time _1130_ on date _[id number]_. Planned Procedure Time: _130pm_.? Time changes happen often and if your time is changed the preop area will call you the afternoon before. - You and your visitor will be asked to self-screen and do not enter if you have any COVID symptoms. Please call surgeon if you need to reschedule. - A mask is optional within the hospital at this time. Patients may have clear liquids (water, carbonated beverages, clear teas, apple juice) until 3 hours prior to surgery with a maximum of 20 ounces. - No food from midnight until time of surgery and no smoking, or chewing tobacco (or any form of nicotine). No chewing gum, candy or mints. Take only the following medications with a SIP of water on the morning of surgery: ___Nifedipine, Cephalexin and Metoprolol DO NOT STOP ANY OF YOUR OTHER PRESCRIPTION MEDICATIONS PRIOR TO SURGERY EXCEPT THE FOLLOWING Hold all vitamins and supplements for 3 days per anesthesiologist. Medications to discontinue per physician Date to take last dose Please no make-up, nail panamanian, hairspray, perfume, deodorant, or body powder the day of surgery.? No jewelry (including any body piercings) or valuables the day of surgery, leave them at home.? Please take a shower or bath the night before, or the morning of, surgery with an antibacterial soap.? Wear comfortable, loose fitting clothing.? - Jewelry must be removed prior to entering the operating room.? Rings and piercings that are not removed may be cut off. - The hospital will not accept responsibility for valuables.? - Please leave all valuables, including medications, at home the day of surgery. If you are going home after surgery, a licensed otr truck driver must drive you home.? - NO public transportation without another adult if you receive anesthesia. - We recommend that an adult stay with you for 24 hours following discharge. - We also recommend that you do not drive, make important decision, drink alcoholic beverages, or take any drugs that were not prescribed by your health care provider for at least 24 hours after your discharge time. Follow any additional instructions given to you from your surgeon. Telephone instructions given to __Amber___and asked if any additional questions and then verbalized understanding. Patient advised to call surgeon office or pre surgery nurse liaison [phone] if any additional questions.
[2025-11-12] VITALS (10 sets, daily range): BP systolic 128–145; BP diastolic 82–91; PULSE 89–110; RESP 12–18; TEMP 36.7–37; O2SAT 94–100
--- OUTSIDE RECORDS SUMMARY | 2025-11-12 01:19 | XMS_ITS | Clinical Summary ---
Author Organization [facility] C Address [address] [place] [address] Care Team Providers Care Community Development Planner Name Role Phone Kodak Amato MD Unavailable [phone] Seth Alanis MD Primary Care Provider [phone] Allergies Active Allergy Reactions Criticality Noted Date [...] Active triamcinolone acetonide (NASACORT ALLERGY NASL) Active NIFEdipine (PROCARDIA XL/ADALAT CC) 90 mg 24 hr tablet by other route 06/22/2024 Active lisinopriL (PRINIVIL,ZESTR IL) 10 mg tablet by other route 07/28/2024 Active progesterone (PROMETRIUM) 100 mg capsule Take 1 capsule (100 mg total) by mouth 10/20/2025 Active ezetimibe (ZETIA) 10 mg tablet Take 1 tablet (10 mg total) by mouth daily 10/20/2025 Active rosuvastatin (CRESTOR) 5 mg tablet Take 1 tablet (5 mg total) by mouth daily 10/20/2025 Active Active Problems Problem Noted Date Diagnosed Date Acute non-recurrent pansinusitis 07/22/2025 Assessment & Plan (07/22/2025 9:09 AM CDT): Due to length of illness we will treat with antibiotic, please complete the whole course of antibiotics-no leftovers. Prescription for antibiotics sent. Reviewed potential benefits and potential side effects of augmentin. Aware to complete full course of antibiotic. To continue otc medications. Discussed nasal saline rinses/neti pots. Discussed need to increase fluid intake. May use 1 teaspoon honey every 4 hours as needed for cough, encourage use of hot tea or hot water with honey. May use vicks vapo rub on chest and bottom of feet before bed. Cool mist humidifier in bedroom. Lots of water, rest and handwashing, no sharing cups or utensils. If symptoms worsen including but not limited to shortness of breath, chest pain and/or increasing pain please notify office or present to Emergency Department. BMI 38.0-38.9,adult 12/17/2017 Assessment & Plan (12/17/2017 5:25 PM DISTILLERY MANAGER): BMI Follow-up includes: education provided. Pain in shoulder 10/10/2017 Clavicle pain 10/10/2017 Knee pain 10/07/2017 Ankle pain 10/07/2017 Benign essential hypertension 08/03/2015 Overview (03/01/2017): Benign essential hypertension Resolved Problems Problem Noted Date Diagnosed Date Resolved Date Gestational diabetes mellitus (GDM) 08/03/2015 11/15/2017 Overview (03/01/2017): Gestational diabetes Encounters Date Type Department Care Team Description 11/06/2025 Results Follow-Up [facility] Care at [address] [address] Josh Celeste NP Urine culture Urine, clean voided 11/04/2025 10:40 AM DISTILLERY MANAGER - 11/04/2025 11:59 PM DISTILLERY MANAGER Hospital Encounter [id number] [place] [address] Right lower quadrant abdominal tenderness without rebound tenderness Discharge Disposition: Discharge to home or self care 11/04/2025 10:15 AM DISTILLERY MANAGER Office Visit [facility] Con[facility] Care at [address] [address] Josh Celeste NP Right lower quadrant abdominal tenderness without rebound tenderness (Primary Dx); Lower abdominal pain; Tachycardia from Last 3 Months Immunizations Immunization Administration Dates Next Due Influenza, Quadrivalent, Velia l Culture-based MDCK, Preservative Free, Antibiotic Free, Intramuscular 09/04/2019 Influenza, Trivalent, Split, Preservative Free, Intradermal 08/30/2014 Influenza, Unspecified 01/02/2023(Deferr ed: Patient Refused),08/25/2020(Deferred: Patient Refused),10/05/2018,08/25/2017 Tdap 04/22/2015 Surgical History Surgery Date Site/Laterality Comments CHOLECYSTECTOMY 11/25/2008 - 11/24/2009 Cholecystectomy TONSILLECTOMY 11/25/2015 - 11/24/2016 TYMPANOPLASTY HYSTERECTOMY 11/27/24 ABDOMINAL SURGERY 05/11/25 THYROIDECTOMY Right Medical History Medical History Date Comments Hx Other Medical Allergies, seas onal; Comments: [facility] 08/03/2015 - Gestational diabetes mellitus (GDM) Diabetes, gestational; Comments: [facility] 08/03/2015 - Hypertension Hypertension Motion sickness PONV (postoperative nausea and vomiting) GERD (gastroesophageal reflux disease) 2010 HL (hearing loss) Family History Medical History Relation Name Comments Allergies Brother 1 Robert Allergies Brother 2 Robert Alcohol abuse Father Ed Екатерина Alcoholism; Diabetes Father Ed Екатерина Drug abuse Father Ed Екатерина Hearing loss Maternal Grandmother Ofelia Cancer Mother Rose Marie Ana Hearing loss Mother Rose Marie Ana Hypertension Mother Rose Marie Ana Hypertension; Hearing loss Mother's Sister 1 Nia & paul Hearing loss Mother's Sister 2 Nia & paul Anesthesia problems Neg Hx Relation Name Status Comments Brother 1 Robert Alive Brother 2 Robert Alive Father Ed Екатерина Maternal Grandmother Ofelia Alive Mother Rose Marie Ana Alive Mother's Sister 1 Nia & paul Mother's Sister 2 Nia & paul Alive Sister Alive Social History Tobacco Use [...] should administer the PHQ-9) 0 06/07/2022 Comments No Sex and Gender Information Value Date Recorded Sex Assigned at Not on file Legal Sex Female 12:09 PM DISTILLERY MANAGER Gender Identity Female 12/05/2021 11:01 AM DISTILLERY MANAGER Sexual Orientation Straight 12/05/2021 11 :01 AM DISTILLERY MANAGER Occupation Industry Job Start Date Job End Date teacher Not on file Not on file Not on file Last Filed Vital Signs Vital Sign Reading Time Taken Comments Blood Pressure 132/88 11/04/2025 10:31 AM DISTILLERY MANAGER Pulse 101 11/04/2025 10:31 AM DISTILLERY MANAGER Temperature 36.9 C (98.5 F) 11/04/2025 10:31 AM DISTILLERY MANAGER Respiratory Rate 18 11/04/2025 10:3 1 AM DISTILLERY MANAGER Oxygen Saturation 97% 11/04/2025 10: 31 AM DISTILLERY MANAGER Inhaled Oxygen Concentration - - Weight 110.7 kg (244 lb 1.6 oz) 025 10:31 AM DISTILLERY MANAGER Height 167.6 cm (5' 6) 11/04/2025 10:3 1 AM DISTILLERY MANAGER Body Mass Index 39.4 11/04/2025 10:31 AM DISTILLERY MANAGER Plan of Treatment Health Maintenance Due Date Last Done Comments Colon Cancer Screening-Colonoscopy 1979 Hepatitis C Screening 1979 Hepatitis B Screening 1997 Breast Cancer Screening-Mammogram 01/19/2023 01/19/2022 Depression Screening 06/07/2023 06/07/2022, 03/21/2022, 11/15/2017 Regular Well Visit/Exam 18-64 01/02/2024 01/02/2023, 12/21/2021, 11/15/2017 DTaP/Tdap/Td Vaccine (2 - Td or Tdap) 04/22/2025 04/22/2015 Influenza Vaccine (#1) 2025 9, 10/05/2018, 08/25/2017, Additional history exists HPV Vaccines Aged Out No longer eligi ble based on patient's age to complete this topic Pneumococcal vaccine <65 Aged Out No longer eligible based on patient's age to complete this topic Medical Devices Implanted Type Area [employer] Device Identifier Shelf Expiration Date Model / Serial / Lot Jodie Zelaya Porp Superior Prosthesis Ossicular 655 - [id number] Implanted:Qty: 1 on 08/24/2022 by Juan Ramon Cotto MD at [facility] [place] Right: Ear Jodie Zelaya [id number] 03/25/2027 655 / / [id number] Procedures Procedure Name Priority Date/Time Associated Diagnosis Comments POCT URINALYSIS DIPSTICK Routine 11/04/2025 10:40 AM DISTILLERY MANAGER Right lower quadrant abdominal tenderness without rebound tenderness URINE CULTURE Routine 11/04/2025 10:40 AM DISTILLERY MANAGER Right lower quadrant abdominal tenderness without rebound tenderness SCREENING MAMMOGRAM 2D BILATERAL Schedule Routine, Read Routine (OP Routine) 01/19/2022 from Last 3 Months or Most Recently Relevant to Health Maintenance Results * POCT urinalysis dipstick (11/04/2025 10:40 AM DISTILLERY MANAGER) Color, Urine, POC Yellow Clarity, ur, POC Clear Clear Glucose, ur, POC Negative Negative Bilirubin, ur, POC Negative Negative Ketones, ur, POC Negative Negative Specific Pratt, POC 1.015 1.003 - 1.030 Blood, ur, POC Negative Negative pH, ur, POC 6.5 5.0 - 8.0 Protein, ur, POC Negative Negative Urobilinogen, urine, POC 0.2 0.2 - 1.0 mg/dL Nitrite, ur, POC Negative Negative Leukocytes, ur, POC Negative Negative Lot Number [id number] Urine 11/04/2025 10:4 0 AM DISTILLERY MANAGER Josh Celeste NP POINT OF CARE TEST ORDERABLES F inal Result * Urine culture Urine, clean voided (11/04/2025 10:40 AM DISTILLERY MANAGER) Report Final Report: Less than 100,000 colonies/mL (clinically insignificant growth based on current clinical standards) Comment:Testing performed by : [facility], [address] [place]., [address] Organism (CLINICALLY INSIGNIFICANT GROWTH ADALID Urine, clean voided 11/04/2025 10:40 AM DISTILLERY MANAGER 11/04/2025 7:52 PM DISTILLERY MANAGER Narrative ADALID - 11/06/2025 6:15 AM DISTILLERY MANAGER Testing performed by [facility] Microbiology Laboratory ([phone]) Josh Celeste NP LAB MICROBIOLOGY - GENERAL [facility] Final Result ADALID [id number] Department [place] [address] * Screening Mammogram 2D Bilateral (01/19/2022) Anatomical Region Laterality Modality Breast Bilateral Mammography us Historical Provider IMG MAMMO PROCEDURES Temi l Result from Last 3 Months or Most Recently Relevant to Health Maintenance Insurance [facility] CHOICE PLUS [facility] H[facility]/PPO Address: [facility] [address] [place] [address] [facility]/PPO Address: [address] [address] [place] [address] [facility] HMO/PPO Address: [address] [address] [place] [address] Care Teams Community Development Planner Relationship Specialty Start Date End Date Seth Alanis MD [address] [place] [address] PCP - General Family Practice 11/04/25 Kodak Amato MD [address] [address] Referring Physician Otolaryngology 01/08/23
--- OUTSIDE RECORDS SUMMARY | 2025-11-12 01:19 | XMS_ITS | Data Portability ---
Author Organization [facility] Address [address], [address] [place] [address] Care Team Providers Care Safe And Vault Installer Name Role Phone ROLANDO OSMAN Primary Care Provider Assessment Encounter Date Assessment Date Assessment LastModified by Organization Details LastModified Time 12/15/2018 12/15/2018 neoplasm - shave removal 8 mm site: R axilla ddx: irritated nevus benign nevi-not suspicious fbse in 1 yr sunscreen handout reviewed and given Not available 12/20/2018 17:44:47 Plan of Treatment Reminders Order Date Submit Date Provider Last Modified By Organization Details Last Modified Time Details Appointments None record ed. Lab pathol ogy, skin 019 12/15/[address] [facility] (Pathology Department), [address], [place], [address], 9 11:55:07 Referral None record ed. Procedures None record ed. Surgeries None record ed. Imaging None record ed. Medication Orders None record ed. Patient TargetsNo targets recorded. Patient Instructions Encounter Date Encounter Id Patient Instructions Last Modified By Organization Details Last Modified Time 12/15/2018 [id number] sun protection Not available 12/20/2018 17:44:53 Reason for Referral None Reported. Results Created Date Observation Date Name Description Value Unit Range Abnormal Flag Note LastModifiedBy Organization Detail LastModifiedTime Result Notes None recorded. Procedures Surgical History Date Name Laterality Status Provider Name and Address Organization Details Recorded Time 9 shave removal completed Hernando Linder MD 12/15/2018 12:10:46 Imaging Results None recorded. Procedure Notes None recorded. Medical Equipment None Reported. Allergies Allergen ID Allergen Name Allergen Category Reaction Reaction Severity Criticality Documentation Date Start Date Code Code System Note Provider Name and Address Organization Details Recorded Time 3340 Lyrica medicatio n hives Not available Not available 12/15/2018 32532 1 RxNorm [facility] Pittman MD 9 11:18:51 Medications Name Sig Start Date Stop Date Status Note LastModified by Organization Details LastModified Time Procardia active Not Available Not Kim ilable Not Available Zyrtec active Not Available Not Availa ble Not Available PreserVision AREDS active Not Available Not Available Not Available Vitamin D3 50 mcg (2,000 unit) capsule Take by oral route. active Not Available Not Available No t Available Vitals None Recorded Social History Question Answer Notes LastModified by Organizat ion Details LastModified Time Tobacco Smoking Status Never Smoker [facility] Pittman MD 12/15/2018 11:21:04 What Was The Date Of Your Most Recent Tobacco Screening? 12/15/2018 Information not available 06/18/2019 Sun Exposure Occasional [email or web address] Information not available 12/15/2018 Do You Use Sunscreen Routinely? Yes [email or web address] Information not available 12/15/2018 Tanning Bed Exposure No [email or web address] Information not available 12/15/2018 Sex: Unknown Functional Status Question Answer Note LastModified by Organization D etails LastModified Time What is your level of alcohol consumption? None [email or web address] Information not available 12/15/2018 Mental Status None recorded. Family History Relationship Description Onset Age of this Age Resolved Age Notes LastModified by Organization Details LastModified Time Mother Hypertensive disorder [email or web address] Not available 11/26 11:20:56 Maternal Grandmother Hypertensive disorder [email or web address] Not available 11/26 11:20:56 Maternal Aunt Hypertensive disorder [email or web address] Not available 11/26 11:20:56 Medical History Condition Response Diabetes N Bleeding Disorder N Arthritis N Hyperthyroidism N Defibrillator N Cancer N Stroke N Asthma N Hypothyroidism N Lupus N HIV/AIDS N Pacemaker N Psoriasis N Anemia N Hepatitis N Heart Disease N Hypertension Y Gynecological HistoryNo gynecological history recorded. Obstetrics History GPAL:G 0 P 0 0 0 0 Past Encounters Encounter ID Performer Location Encounter Start Date Encounter Closed Date Diagnosis/Indication Diagnosis SNOMED-CT Code Diagnosis ICD10 Code Diagnosis IMO Codes Diagnosis Note [id number] Shelbie Linder MD Main Office [address] [facility] [address] [place] [address] 12/15/2018 10:59:34 12/15/2018 11:51:38 Neoplasm of uncertain behavior of skin 70941858 D48.5 Melanocyti c nevus of face 139889632 D22.30 Melanocyti c nevus of neck 075305823 D22.4 Melanocyti c nevus of trunk 523829271 D22.5 Health Concerns Section Related Observation LastModified by Organization Detai ls LastModified Time None Recorded Concern Status LastModified by Organization Details LastModified Time None Recorded Advance Directives Directive None Recorded Payers Insurance Date Sequence Insurance Name Policy Number Policy Hollingsworth Covered Member ID Hollingsworth Member ID Guarantor Name 12/24/2018 1 [facility] [id number] [facility] [id number] Mirian Washburn Notes Date Note Type Note Provider Name and Address Organization Details Recorded Time 12/15/2018 text/html ROS as noted in the HPI full body check mole under R armx 2 yearschanged colors and painfulno past treatment. mole on left side neckx yearsgets caught on seat belt,necklesses mole on left side of facex yearsfeels squishy when touched Patient's completed past medical history form was reviewed.no f/cno hx atypical moles or hx skin cancer. Shelbie Linder MD [address] [facility], [address], [place], [address], [facility] - Shelbie Linder MD 12/20/2018 17:45:21 OBGyn Episode No OBEpisode recorded.
--- OUTSIDE RECORDS SUMMARY | 2025-11-12 01:19 | XMS_ITS | Clinical Summary ---
Author Organization [facility] Address [address] [place] [address] Care Team Providers Care Electro Mechanical Technologist Name Role Phone Seth Alanis MD Primary Care Provider [phone] Social History Tobacco Use Types Packs/Day Years Used Date Smoking Tobacco: Never Assessed Comments Unknown Sex and Gender Information Value Date Recorded Sex Assigned at Female 04/02/2025 3:47 PM CDT Legal Sex Female 9:49 AM CDT Gender Identity Not on file Sexual Orientation Not on file Plan of Treatment Health Maintenance Due Date Last Done Comments Cervical Cancer Screening Pap Smear (Age 30 to 64) Every 3 Years 1979 Colorectal Cancer Screening Colonoscopy (10 Years) 1979 Annual Physical 1982 Hepatitis C 1997 Hepatitis B Vaccines (1 of 3 - 19+ 3-dose series) 1998 Cervical Cancer Screening Pap with HPV Testing (Age 30 to 64) Every 5 Years 2009 Cervical Cancer Screening with HPV 2009 Mammogram Screening 2019 DTaP, Tdap and Td Vaccines (2 - Td or Tdap) 04/22/2025 04/22/2015 COVID-19 Vaccine ( season) 2025 Influenza Adult (#1) 2025 09/04/2019, 10/05/2018, 09/05/2017, Additional history exists Hepatitis A Vaccines Aged Out No long er eligible based on patient's age to complete this topic Meningococcal B Vaccine Aged Out No l onger eligible based on patient's age to complete this topic Meningococcal Vaccine Aged Out No benjamin ayala eligible based on patient's age to complete this topic Pneumococcal Vaccine: Pediatrics (0 to 5 Years) and At-Risk Patients (6 to 49 Years) Aged Out No longer eligible based on patient's age to complete this topic RSV Immunizations Under 20 Months Aged Out No longer eligible based on patient's age to complete this topic Insurance [facility] Care Teams Electro Mechanical Technologist Relationship Specialty Start Date End Date Seth Alanis MD [address] [place] [address] PCP - General 03/31/25
--- OUTSIDE RECORDS SUMMARY | 2025-11-12 01:19 | XMS_ITS | Patient Health Record ---
Author Organization [facility] Address [address] [facility] [address] [place] [address] Support Name Relationship Address Phone Mirian Washburn Guarantor Unknown [phone] Reason For Referral No Information Problems Problem Type SNOMED Code ICD Code Onset Dates Problem Status W/U Status Risk Notes Problem Arthralgia of the ankle and/or foot (715389612) Pain in right ankle and joints of right foot (M25.571) 6 Active confirmed Problem Sprain of right ankle (27090337364985 105) Sprain of unspecified ligament of right ankle, subsequent encounter (S93.401D) 6 Active confirmed Plan Of Treatment No Information Insurance Providers Payer Name Payer Address Payer Phone Subscriber Number Group Number Insured Name Patient Relationship to Insured Coverage Start Date Coverage End Date [employer] [facility] [address] [address] [place] [address] [id number] Mirian Washburn Self - patient is the insured 6
--- OUTSIDE RECORDS SUMMARY | 2025-11-12 01:19 | XMS_ITS | Clinical Summary ---
Author Organization [facility] Address [address] [facility] [place] [address] Care Team Providers Care Application Release Manager Name Role Phone Seth Alanis MD Primary Care Provider [phone] Source Comments [facility] Affiliates and Associated Physician Practices is amultiple site organization consisting of ambulatory clinics and hospital sitesin [place], [place], [place] and [place]. This disclosure is being madepursuant to the Care Everywhere program and may not contain all information available regarding this patient. Last updated 18.[facility] Allergies Active Allergy Reactions Criticality Noted Date [...] Active mometasone (NASONEX) 50 MCG/ACT nasal spray [place] 2 Sprays into each nostril once daily. 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 Not on file Not on file Not on file Last Filed Vital Signs Vital Sign Reading Time Taken Comments Blood Pressure 140/85 10/29/2023 11:35 AM RETAIL WAREHOUSE SUPERVISOR Pulse 106 10/29/2023 11:35 AM RETAIL WAREHOUSE SUPERVISOR Temperature 36.5 C (97.7 F) 01/11/2016 7:48 PM RETAIL WAREHOUSE SUPERVISOR Respiratory Rate 20 10/29/2023 11:35 AM RETAIL WAREHOUSE SUPERVISOR Oxygen Saturation 97% 10/29/2023 11:35 AM RETAIL WAREHOUSE SUPERVISOR Inhaled Oxygen Concentration - - Weight 105.2 kg (232 lb) 10/29/2023 11:35 AM RETAIL WAREHOUSE SUPERVISOR Height 167.6 cm (5' 6) 10/29/2023 11:35 AM RETAIL WAREHOUSE SUPERVISOR Body Mass Index 37.45 10/29/2023 11:35 AM RETAIL WAREHOUSE SUPERVISOR Plan of Treatment Health Maintenance Due Date [...] 2 - PCV) 1998 PAP SMEAR 2000 LIPID TESTING 05/09/2017 05/09/2012 SCREENING FOR DIABETES 10/29/2023 01/11/2016, 2011 DEPRESSION SCREENING 11/25/2024 DTAP/TDAP/TD VACCINES (2 - Td or Tdap) 04/22/2025 04/22/2015 COVID-19 VACCINE (1 - season) 2025 INFLUENZA VACCINE (#1) 2025 9, 10/05/2018, 08/25/2017, Additional history exists ZOSTER VACCINE [...] < 140/90 Blood Pressure 140/85(2022 11:35 AM RETAIL WAREHOUSE SUPERVISOR) No Minda Syed MA Procedures Procedure Name Priority Date/Time Associated Diagnosis Comments COMPREHENSIVE METABOLIC PANEL STAT 01/11/2016 4:19 PM RETAIL WAREHOUSE SUPERVISOR LIPID PROFILE 05/09/2012 10:20 AM CDT from Last 3 Months or Most Recently Relevant to Health Maintenance Results * (ABNORMAL) COMPREHENSIVE METABOLIC PANEL (01/11/2016 4:19 PM RETAIL WAREHOUSE SUPERVISOR) Glucose 143(H) 74 - 106 mg/dL 01/11/2016 4:47 PM RETAIL WAREHOUSE SUPERVISOR [facility] Sodium 141 136 - 145 mmol/L 01/11/2016 4:47 PM RETAIL WAREHOUSE SUPERVISOR [facility] Potassium 3.5 3.5 - 5.1 mmol/L 01/11/2016 4:47 PM RETAIL WAREHOUSE SUPERVISOR [facility] Chloride 107 98 - 107 mmol/L 01/11/2016 4:47 PM RETAIL WAREHOUSE SUPERVISOR [facility] CO2 24 22 - 31 mmol/L 01/11/2016 4:47 PM RETAIL WAREHOUSE SUPERVISOR [facility] Calcium 9.1 8.5 - 10.1 mg/dL 01/11/2016 4:47 PM RETAIL WAREHOUSE SUPERVISOR [facility] Anion Gap 10 5 - [...] LABORATORY eGFR by MDRD >60 >60 mL/min/1.7 2 01/11/2016 4:[address] [facility] Blood BLOOD SPECIMEN / Unknown Venipuncture / Unknown 01/11/2016 4:19 PM RETAIL WAREHOUSE SUPERVISOR 01/11/2016 4:29 PM [facility] Nancy Arroyo DO LAB - CHEMISTRY ORDERABLES Fin al Result Performing Organization Address City/State/[facility] Co de Phone Number [facility] [address] [place] [address] * (ABNORMAL) LIPID PROFILE (05/09/2012 10:20 AM CDT) [facility] Cholesterol 238(H) 125 - 200 mg/dL [facility] Comment: Test Performed at: [facility] [address] [address] ESTRELLA MAYA DO,MPH HDL Cholesterol 54 > [...] - CHEMISTRY ORDERABLE S Final Result [facility] [address] [place] [address] from Last 3 Months or Most Recently Relevant to Health Maintenance Insurance SELF PAY NO INSURANCE Member Subscriber Plan / Payer (Ef fective for All Dates) Name:Mirian Washburn Member ID:Not on file Relation to Subscriber:Self Name:MIRIAN WASHBURN Subscriber ID:Not on file Payer ID:Not on file Group ID:Not on file Type:Self Pay Address: [facility] * Guarantor: MIRIAN WASHBURN Account Type Relation to Patient Date of Phone Billing Address Personal/Family [address] [place] [address] [facility] SELF PAY NO INSURANCE Member Subscriber Plan / Payer (Ef fective for All Dates) Name:Mirian Washburn S Member ID:Not on file Relation to Subscriber:Not on file Name:MIRIAN WASHBURN Subscriber ID:Not on file (Home) Address: [address] [phone] Payer ID:Not on file Group ID:Not on file Type:Self Pay Address: [facility] * Guarantor: MIRIAN WASHBURN Account Type Relation to Patient Date of Phone Billing Address Personal/Family [address] [place], [place] [phone] [facility] SELF PAY NO INSURANCE Member Subscriber Plan / Payer (Ef fective for All Dates) Name:Mirian Washburn Member ID:Not on file Relation to Subscriber:Not on file Name:MIRIAN WASHBURN Subscriber ID:Not on file (Home) Address: [address] [phone] Payer ID:Not on file Group ID:Not on file Type:Self Pay Address: [place], [place] * Guarantor: MIRIAN WASHBURN Account Type Relation to Patient Date of Phone Billing Address Personal/Family [address] [phone] [facility] SELF PAY NO INSURANCE Member Subscriber Plan / Payer (Ef fective for All Dates) Name:Mirian Washburn Member ID:Not on file Relation to Subscriber:Not on file Name:MIRIAN WASHBURN Subscriber ID:Not on file (Home) Address: [address] [phone] Payer ID:Not on file Group ID:Not on file Type:Self Pay Address: [place], [place] Care Teams Application Release Manager Relationship Specialty Start Date End Date Seth Alanis MD [address] [place] [address] PCP - General Family Medicine 10/29/23
--- NOTE | 2025-11-12 06:14 | WPDHPUPDATE1 ---
History and Physical Update Update Date/Time: 11/12/25 06:14 History and Physical has been reviewed, including an updated exam of the patient. There are NO changes in the patient's condition. Risks, benefits, and alternatives have been discussed and questions answered. Patient agrees to proceed with procedure.
[2025-11-12] MEDS: LACTATED RINGERS 1,000 ML 30 ML IV CONT ×2 (12:30→14:37)
--- NOTE | 2025-11-12 12:56 | WPDANESEPPF ---
Anes - Initial Pre Proc Eval Procedure: Operation Date: 11/12/25 13:30 Proposed Procedures p Laparoscopic Left Ovarian Cystectomy, Possible Left Salpingo oophorectomy - Ravi Hyatt MD Date/Time: 11/12/25 12:56 Surgeon: Ravi Hyatt MD Pre Op Diagnosis: left ovarian cyst, pelvic pain Patient Data Age: 45 Gender: F Height: 1.68 m Weight: 110 kg Allergies Allergy/AdvReac Type Severity Reaction Status Date / Time lopez pepper Allergy Intermediate Hives Verified 11/11/25 09:17 corn Allergy Intermediate Abdominal Verified 11/11/25 09:17 Pain pregabalin Allergy Mild Hives Verified 11/11/25 09:17 adhesive tape Allergy Unknown Verified 11/11/25 09:17 Home Medications ?Medication ?Instructions ?Recorded ?Confirmed ?Type cetirizine 10 mg tablet (Zyrtec) 10 mg PO HS PRN Allergic Symptoms 09/19/23 11/11/25 History Adult One Daily Multivitamin 1 tablet BYMOUTH DAILY 03/18/24 11/11/25 History vitamins A,C,G-knwd-nldpew 4,296 1 cap PO QAM AND QPM 03/18/24 11/11/25 History mcg-226 mg-90 mg capsule (PreserVision AREDS) cholecalciferol (vitamin D3) 25 25 mcg PO BID 02/17/25 11/11/25 History mcg (1,000 unit) tablet nifedipine 90 mg tablet,extended See Rx Instructions .Route 06/16/25 11/11/25 Rx release 24 hr .COMPLEX #90 tabs lisinopril 10 mg tablet See Rx Instructions .Route 07/21/25 11/11/25 Rx .COMPLEX #90 tabs creatine monohydrate 1 gram 1 g PO DAILY 11/04/25 11/11/25 History chewable tablet docusate sodium 100 mg capsule 100 mg PO DAILY 11/04/25 11/11/25 History ezetimibe 10 mg tablet 10 mg PO DAILY 11/04/25 11/11/25 History magnesium citrate 100 mg capsule 200 mg PO DAILY 11/04/25 11/11/25 History omega-3 430 mg-dha 130 1 cap PO DAILY 11/04/25 11/11/25 History sx-agw-sky-fish 650 mg capsule, delayed release ([place] MonoPure) progesterone micronized 100 mg 100 mg PO DAILY 11/04/25 11/11/25 History capsule rosuvastatin 5 mg tablet 5 mg PO DAILY 11/04/25 11/11/25 History vitamin K2 100 mcg capsule 100 mcg PO DAILY 11/04/25 11/11/25 History cephalexin 500 mg capsule 500 mg PO Q8H #20 caps 11/05/25 11/11/25 Rx hydrocodone 5 mg-acetaminophen 325 1 tablet PO Q6H PRN pain #14 tabs 11/05/25 11/11/25 Rx mg tablet metronidazole 500 mg tablet 500 mg PO Q8H #20 tabs 11/05/25 11/11/25 Rx hydrocodone 5 mg-acetaminophen 325 1 tablet PO Q4H PRN pain #20 tabs 11/12/25 Rx mg tablet Patient hx anesthesia problems: post op nausea/vomiting Family hx anesthesia problems: none Results Review: All pre-operative results and documents have been reviewed as part of the pre-operative evaluation. [facility] Past Medical History Medical History Gestational diabetes Inner ear hearing loss Hypertension PONV (postoperative nausea and vomiting) Fibroid Surgical History Surgical History History of gynecological procedure (04/17/24) fibroidectomy History of tonsillectomy Hx of cholecystectomy S/P right oophorectomy (05/13/25) H/O: hysterectomy (11/27/24) Family History Family History Mother Cancer Hypertension Father Alcoholism Diabetes mellitus Heart disease Cerebrovascular accident Grandparent Cancer Hypertension Social History Social History Smoking status: Never smoker Second hand tobacco smoke exposure: Yes (occassional) Alcohol intake: current Drinks per week: 0 Alcohol use details: x1 month occassionally Substance use: never Substance use type: does not use Lack of Transportation: No Lack of Food: Never True Current Housing: I Have Housing Concerned About Future Housing: No Difficulty Paying Gas/Electric Bills: No Difficulty Paying for Meds: No Currently Unemployed: No Education: Master's Degree or Higher Difficulty w/ Childcare or Family Care: No Living arrangements: with family Additional living arrangements comments: Occupation/Education: occupation Additional occupation/education comments: teacher Gender identity (if verbalized by the patient): Female Sexual Orientation (if Verbalized by the Patient): Straight or Heterosexual Spiritual care concerns: No Anes - Eval Final PreProcedure Day of Procedure 11/12/25 12:56 Patient weight: obese Lungs: normal air movement Airway: Mallampati scale class II and special considerations (Upper partial L. ) Neurological: alert and oriented Last oral intake: >/= 8 hours ASA classification: III Emergent: no Anesthetic plan: proceed Anesthesia type and monitoring: general ETT and standard monitoring Results Review: All pre-operative results and documents have been reviewed as part of the pre-operative evaluation. HTN, hyperlipidemia, BMI 39, active without cp or sob. Informed Consent: The patient's anesthetic plan and its attendant risks and benefits were discussed with the patient/family/POA. Questions were solicited and answers provided to the satisfaction of the patient/family/POA.
[2025-11-12] MEDS: ACETAMINOPHEN 500 MG TABLET 1000 MG PO (13:00)
[2025-11-12] MEDS: KETOROLAC 15 MG/ML VIAL (*BKC) IV PUSH (13:00)
--- NOTE | 2025-11-12 14:22 | W.PM.PROC2 ---
Procedure Note - Detailed Date of Procedure 11/12/25 Pre-op Diagnosis left ovarian cyst, pelvic pain Post-op Diagnosis Other (Pelvic adhesions/pelvic pain/peritoneal cyst) Procedure Performed Laparoscopic lysis of adhesions Surgeon Ravi Hyatt MD Anesthesia General Indications This is a 45 year patient status post hysterectomy salpingo-oophorectomy large cyst seen left side of the pelvis. She had elevated white count and some pain but that had improved Findings Uterus cervix right adnexa absent. Was unable to see the left adnexa. Adhesions were seen in the cul-de-sac Description of Procedure Patient was prepped and draped in the normal sterile fashion placed in the dorsal lithotomy position. Excellent general trach anesthesia sponge stick placed. Bladder drained of cc of clear urine the weighted speculum was removed. The gloves were changed. A supraumbilical incision made the Veress needle passed in the abdomen. Abdomen filled with CO2 gas 15 of mercury. The 5mm trocar advanced under visualization assuring patient placed in Trendelenburg and a suprapubic incision made. The 5 trocar advanced under direct trip visualization. A left lower quadrant incision made 8mm trocar advanced under visualization assuring injury multiple adhesions were seen. The using 1 to put the bowel stretch the colon was sharply dissected away from the vaginal cuff. There was a what appeared to be a peritoneal cyst in the cul-de-sac. Irrigation was undertaken and he adhesional lysis undergone the colon was markedly adherent and there appeared to be a peritoneal cyst posteriorly. There was unable to determine whether this was ovarian in nature or peritoneal and the general surgeon came in and agreed that destroying this cyst would not be helpful as far as relief of pain now that the adhesional lysis admitted undertaken. That point decision was made to terminate the procedure irrigation undertaken until clear the sites were all removed after gas removed from the abdomen closed with 4-0 Monocryl and glue the patient went to recovery in satisfactory condition. All sponge, needle, instrument counts were correct. There were no immediate complications. Should she continue to have pain or if this returns I would refer her to a svp business development oncologist her specialist to his more comfortable with bowel adhesions lysis. Estimated Blood Loss 5 Drains No Packing No Pathology None sent Complications No immediate complications Condition Stable Disposition PACU
[2025-11-12] MEDS: oxyCODONE HCL (*CRX) 5 MG TAB IR PO (16:27)
== END 2025-11-12 17:42 | disposition home or self-care (01) ==
PROVIDERS: PCP Family Medicine; Visit Provider Obstetrics & Gynecology
PROC: (CPT 49320; principal; 2025-11-12 13:30)
DX: N73.6 Female pelvic peritoneal adhesions (postinfective) (principal); I10 Essential (primary) hypertension; E78.5 Hyperlipidemia, unspecified; E66.9 Obesity, unspecified; Z68.39 Body mass index [BMI] 39.0-39.9, adult; Z79.891 Long term (current) use of opiate analgesic; Z98.890 Other specified postprocedural states; Z90.49 Acquired absence of other specified parts of digestive tract; Z80.9 Family history of malignant neoplasm, unspecified; Z82.49 Family history of ischemic heart disease and other diseases of the circulatory system
CPT/HCPCS: 58660; 36415; 86850; 86900; 86901; A9270; J1100; J1885; J2250; J2405; J2704; J3010; J7030; J7120